=== PATIENT | male | born 1960 | race Caucasian/White ===

== ENCOUNTER 2020-08-26 10:35 | Emergency (ER) | payer OTHER ==
[~2020-08-26] VITALS: Ht 175.3 cm; Wt 93.0 kg
[2020-08-26 10:41] VITALS: BP 121/81
[2020-08-26] MEDS ORDERED: BENZONATATE 100 MG CAPLF PO ONE (11:00)
[2020-08-26] MEDS ORDERED: ONDANSETRON 4 MG ODT PO ONE (11:00)
[2020-08-26 11:50] VITALS: BP 121/81
== END 2020-08-26 11:55 | disposition home or self-care (01) ==
LOC: MED 10:35
DX: U07.1 COVID-19 (principal); B34.9 Viral infection, unspecified; R05 Cough; R11.2 Nausea with vomiting, unspecified; F20.9 Schizophrenia, unspecified
CPT/HCPCS: 71045; 99284; Q0092; Q0162; U0003

== ENCOUNTER 2020-08-30 15:20 | Inpatient (IN) | payer OTHER, SELFPAY ==
[~2020-08-30] VITALS: Ht 175.3 cm; Wt 90.3 kg
[2020-08-30 15:26] VITALS: BP 115/96
[2020-08-30] MEDS ORDERED: cefTRIAXone 1,000 MG in DEXT 5% MINI-BAG PLUS 50 ML IV ONE (15:35)
[2020-08-30] MEDS ORDERED: cefTRIAXone 1,000 MG VIAL ONE (15:44)
--- NOTE | 2020-08-30 15:51 | NUR ---
MEDARDO FROM [facility] W C/O SOB. PER EMS, PT IS COVID (+). PT ARRIVED TO ED ON 15 L NRB MASK @ 95%. AAOX4 WITH EVEN AND STEADY GAIT; LUNGS CLEAR BL; HR EVEN AND REGULAR; PT DENIES ANY FEVER, CP, SOB, OR COUGH AT THIS TIME; PATIENT STATES PAIN OF 0/10 AT THIS TIME; VSS; PATIENT POSITIONED FOR COMFORT; HOB ELEVATED; BEDRAILS UP X2; BED DOWN. ER MD MADE AWARE OF PT STATUS.
[2020-08-30 15:52] LABS: BASOPHILS % (AUTO) 0.3 % (0.0-2.0); HEMATOCRIT 35.3 % (36-52); HEMOGLOBIN 11.5 g/dL (12.0-18.0); LYMPHOCYTES # (AUTO) 0.4 K/uL (2.0-11.5); LYMPHOCYTES % (AUTO) 3.2 % (20.5-51.1); MEAN CORPUSCULAR HEMOGLOBIN 25 pg (27-31); MEAN CORPUSCULAR HGB CONC 33 g/dL (33-37); MEAN CORPUSCULAR VOLUME 75.9 fL (80-94); MONOCYTES # (AUTO) 0.4 K/uL (0.8-1.0); NEUTROPHILS # (AUTO) 10.2 K/uL (1.8-7.7); NEUTROPHILS % (AUTO) 92.5 % (42.2-75.2); PLATELET COUNT (AUTO) 319 K/uL (140-450); RED BLOOD CELL COUNT(AUTO) 4.65 MIL/uL (4.20-6.10); RED CELL DISTRIBUTION WIDTH 15.5 % (11.6-13.7)
[2020-08-30 16:10] LABS: ANION GAP 21.1 (8-16); CARBON DIOXIDE 17.9 mmol/L (21-32); CREATININE 1.4 mg/dL (0.6-1.3); TOTAL BILIRUBIN 0.5 mg/dL (0.0-1.0)
[2020-08-30 16:16] LABS: APPEARANCE,URINE CLEAR (CLEAR); BILIRUBIN,URINE 1+ (NEGATIVE); BLOOD, URINE 1+ (NEGATIVE); COLOR,URINE YELLOW (YELLOW); LEUKOCYTE ESTERASE ,URINE NEGATIVE (NEGATIVE); NITRITE, URINE NEGATIVE (NEGATIVE); UGLUCOSE 3+ (NEGATIVE)
[2020-08-30 16:37] LABS: RBC,URINE 0-5 /HPF (0-5); WBC,URINE 0-5 /HPF (0-5)
--- NOTE | 2020-08-30 17:00 | NUR ---
PT IS RESTING IN THE BED. TACHYCARDIA, TACHYPNEA, AND 99.9 ORAL TEMP. PAUSE OX 94 ON 15L N-REBREATHER. DR. BENNETT MADE AWARE.
[2020-08-30] MEDS ORDERED: ACETAMINOPHEN EXTRA STRENGTH 500 MG TAB PO ONE (17:05)
[2020-08-30] MEDS ORDERED: ACETAMINOPHEN EXTRA STRENGTH 500 MG TAB ONE (17:06)
--- NOTE | 2020-08-30 17:12 | NUR ---
DR. BENNETT IS REEVALUATING PT AT BEDSIDE.
[2020-08-30] MEDS ORDERED: KCL 20 MEQ/WATER INJ PREMIX 200 ML IV PRN (17:40)
[2020-08-30] MEDS ORDERED: MAG SULF 2000 MG/WATER PREMIX 50 ML IV PRN (17:40)
[2020-08-30] MEDS ORDERED: MAGNESIUM OXIDE 400 MG TAB PO PRN (17:40)
[2020-08-30] MEDS ORDERED: POTASSIUM CHLORIDE 10 MEQ TABER PO PRN (17:40)
--- NOTE | 2020-08-30 18:50 | NUR ---
Patient will be admitted to care of hypoxia and covid-19. Admited to tele. Will go to room 116. Belongings list completed. Report to LINDSAY Arcos.
[2020-08-30] MEDS: ALBUTEROL SULFATE/IPRATROPIU 3 ML SOL IH SCH (19:00)
--- NOTE | 2020-08-30 19:05 | NUR ---
REC'D REPORT FROM ER NURSE . ENDORSED PT TO EMERY.
--- NOTE | 2020-08-30 19:18 | NUR ---
PT BROUGHT UP TO UNIT AT 1905 BY ERIC. RECEIVED REPORT AT BEDSIDE FORM ERI RN AND DAMIAN RN FOR CONTINUITY OF CARE. PT IN STABLE CONDITION. ADMIT V/S FOLLOWS: T 99.9 P 93 R 22 B/P 117/68 02 85% ON 15 LITER NON REBREATHER MASK. ALL DROPLET AND FALLS PREVENTION IN PLACE.
[2020-08-30] MEDS ORDERED: ENOXAPARIN 40 MG/0.4 ML SYR SUBQ ONE (19:51)
[2020-08-30 20:00] VITALS: BP 121/81
[2020-08-30] MEDS ORDERED: AZITHROMYCIN 500 MG in DEXTROSE 5% 250 ML IV SCH (20:00)
[2020-08-30] MEDS: ENOXAPARIN 40 MG/0.4 ML SYR SUBQ SCH (20:01)
--- NOTE | 2020-08-30 20:20 | NUR ---
PT IS ALERT AND AWAKE AND APPEARS SOMEWHAT ANXIOUS, BUT CAN FOLLOW COMMANDS AND ANSWER QUESTIONS. MRSA SWAB DONE. PT SKIN INTACT AND HE HAS A RAC 20 GUAGE WHICH IS SALINE LOCKED.PT ORIENTED TO ROOM AND SURROUNDINGS. MRSA SWAB DONE. MD AMOS HERE FOR CONSULT. HE DISCONTINUED IV ABT AND ORDERED DEXAMETHASONE PER COVID PROTOCOL. CONVALESCENT PLASMA ORDERED WELL. V/S FOLLOWS: T 98.3 P 92 R 20 B/P 121/581 02 91% WITH 15 LITERS NON REBREATHER.
--- NOTE | 2020-08-30 20:47 | NUR ---
PT SPO2 ON 100% NRB HR 83 WILL CONTINUE TO MONITOR
--- NOTE | 2020-08-30 21:00 | NUR ---
PT RECEIVED ORDERED LOVENOX SHOT SQ IN THE ABDOMEN. MEDICATION PURPOSES AND SIDE EFFECTS ACKNOWLEDGED BY PT. DROPLET PRECAUTIONS IN PLACE.
--- NOTE | 2020-08-30 22:00 | NUR ---
PT IN BED REPORTED BY WIRELESS STORE MANAGER THAT HE IS GROWING MORE ANXIOUS WITH C/O OF NAUSEA. PT GIVEN EMISIS BAG AND ENCOURAGED TO KEEP THE MASK ON MUCH POSSIBLE DUE TO PT KEEP ON TAKING THE MASK OFF. PT REMINDED THAT HIS 02 SATURATION WILL DROP AND WAS ENCOURAGED TO KEEP MASK ON, PT VERBALIZED UNDERSTANDING.
--- NOTE | 2020-08-30 23:03 | NUR ---
CALLED BY LINDSAY LAND DUE TO DESATURATION. PT IS ANXIOUS AND SHAKING. PROBE CHANGED TO THE EAR. SATURATION NOW 91% PT DOES NOT COMPLAIN OF SHORTNESS OF BREATH. WILL CONT TO MONITOR
[2020-08-30] MEDS ORDERED: ONDANSETRON 4 MG/2 ML VIAL IVP PRN (23:10)
[2020-08-30] MEDS ORDERED: guaiFENesin 20 MG/ML UDC PO PRN (23:10)
--- NOTE | 2020-08-30 23:30 | NUR ---
CALLED RECORDING STUDIO SET UP WORKER MD [facility], RECEIVED PRN ORDERS FOR AGITATION , COUGH AND NAUSEA. PT GIVEN ORDERED IVP ATIVAN FOR SEVERE AGITATION. PT AlSO GIVEN PO/PRN ROBITUSSIN FOR INTERMITTED COUGH, PT HAD NO C/O OF NAUSEA AT THIS TIME.
[2020-08-30] MEDS: LORazepam 2 MG/ML VIAL IM/IVP PRN (23:46)
[2020-08-31] VITALS (32 sets, daily range): BP systolic 93–132; BP diastolic 48–83
--- NOTE | 2020-08-31 00:10 | NUR ---
PT IN BED V/S FOLLOWS: T 102.0 P 111 R 20 B/P 108/81 02 92% ON 15 LITERS VIA N/C. PT WAS TURNED AND CHANGED DUE TO INCONTINENT EPISODE. PT ENCOURAGED TO USE URINAL BY BEDSIDE AND TO CALL FOR HELP IF NEEDED. ALL DROPLET PRECAUTIONS IN PLACE.
[2020-08-31] MEDS: ALBUTEROL SULFATE/IPRATROPIU 3 ML SOL IH SCH ×4 (00:43→19:00)
--- NOTE | 2020-08-31 00:43 | NUR ---
0100 TX NOT GIVEN DUE TO COVID POSITIVE. PT REMAINS ON 100 PERCENT NRB
[2020-08-31] MEDS: ACETAMINOPHEN 325 MG TAB PO PRN ×2 (01:25→09:59)
--- NOTE | 2020-08-31 01:30 | NUR ---
RECEIVED PRN ORDER FOR TYLENOL 650 MG WHICH WAS GIVEN DUE TO FEVER OF 102. PT ALSO GIVEN COOLING MEASURES OF BED BATH AND ICE PACKS. WILL CONTINUE TO MONITOR PT TEMPERATURE. PT ALSO GIVEN ZOFRAN FOR C/O OF NAUSEA. WILL MONITOR FOR EFFECT.
--- NOTE | 2020-08-31 04:35 | NUR ---
PT IN BED, NON REBREATHER MASK ON AT 15 LITERS V/S FOLLOWS:l T 96.8 P 86 R 20 B/P 113/71 02 88%.
--- NOTE | 2020-08-31 06:40 | NUR ---
PT C/O ANXIETY, PT HANDS AND FEET SHAKING, PT WAS GIVEN 1MG ATIVAN IVP FOR AGITATION.
[2020-08-31] MEDS: LORazepam 2 MG/ML VIAL IM/IVP PRN ×4 (06:55→19:44)
[2020-08-31 06:57] LABS: BASOPHILS % (AUTO) 0.2 % (0.0-2.0); EOSINOPHILS % (AUTO) 0.3 % (0.0-4.0); HEMATOCRIT 34.1 % (36-52); HEMOGLOBIN 11.1 g/dL (12.0-18.0); LYMPHOCYTES # (AUTO) 0.2 K/uL (2.0-11.5); LYMPHOCYTES % (AUTO) 1.9 % (20.5-51.1); MEAN CORPUSCULAR HEMOGLOBIN 25 pg (27-31); MEAN CORPUSCULAR HGB CONC 33 g/dL (33-37); MEAN CORPUSCULAR VOLUME 76.3 fL (80-94); MONOCYTES # (AUTO) 0.4 K/uL (0.8-1.0); MONOCYTES % (AUTO) 3.3 % (1.7-9.3); NEUTROPHILS # (AUTO) 11.7 K/uL (1.8-7.7); NEUTROPHILS % (AUTO) 94.3 % (42.2-75.2); PLATELET COUNT (AUTO) 295 K/uL (140-450); RED BLOOD CELL COUNT(AUTO) 4.47 MIL/uL (4.20-6.10); RED CELL DISTRIBUTION WIDTH 15.5 % (11.6-13.7); WHITE BLOOD COUNT (AUTO) 12.5 K/uL (4.8-10.8)
[2020-08-31 07:04] LABS: CHOL/HDL RATIO 2.4 (1-4.5); MAGNESIUM 2.1 mg/dL (1.8-2.4); PHOSPHORUS 2.9 mg/dL (2.5-4.9)
--- NOTE | 2020-08-31 07:15 | NUR ---
RECEIVED REPORT FROM FAMILY ADVOCATE NURSE. PATIENT AWAKE IN BED. FLACC 0, VERBAL BUT CONFUSED, RESPIRATIONS EVEN AND UNLABORED, 15L VIA NRM, O2SAT 90%. WITH IV ON RAC 20G ON SL. SAFETY MEASURES IN PLACE. BED IN LOW POSITION. BED ALARM ON. CALL LIGHT WITHIN REACH. WILL CONTINUE TO MONITOR.
[2020-08-31 07:31] LABS: PROTHROMBIN TIME 10.2 secs (10.8-13.4)
--- NOTE | 2020-08-31 08:29 | NUR ---
PATIENT HAS BEEN SCREENED AND CATEGORIZED HIGH NUTRITION RISK. PATIENT WILL BE SEEN WITHIN 1-2 DAYS OF ADMISSION. 08/31/20 - 09/01/20 CY ERWIN MBA, RD
[2020-08-31] MEDS: ENOXAPARIN 40 MG/0.4 ML SYR SUBQ SCH ×2 (09:00→21:24)
--- NOTE | 2020-08-31 10:00 | NUR ---
PT NOTED WITH UNCONTROLLED SHACKING AND COMPLAINTS OF ANXIETY. ATIVAN GIVEN ORDERED
--- NOTE | 2020-08-31 11:00 | NUR ---
PT WITH EPISODES OF O2SAT DROPPING TO 80% ON 15L NRM. RT NOTIFIED AND WILL SEE PT
--- NOTE | 2020-08-31 12:00 | NUR ---
PLACED PT ON BIPAP 10/05, RATE 16, 100%. PT COULD NOT TOLERATE DUE TO INCREASED ANXIETY. SWITCHED TO HFNC 30LPM, 100% PER MD ORDERS. TOOK ABG AND READBACK RESULTS TO DR. VILLEDA. GAVE ORDERS TO PRONE PT.
[2020-08-31] MEDS ORDERED: BENZ0.5T85 PO (12:21)
[2020-08-31] MEDS ORDERED: LURA120T PO (12:28)
[2020-08-31] MEDS ORDERED: METF1000 PO (12:28)
[2020-08-31] MEDS ORDERED: CANA300T PO (12:28)
[2020-08-31] MEDS ORDERED: ATOR20TA PO (12:28)
[2020-08-31] MEDS ORDERED: LANS15EC28 PO (12:28)
[2020-08-31] MEDS ORDERED: MELO15TA11 PO (12:28)
[2020-08-31] MEDS ORDERED: QUET200T PO (12:28)
[2020-08-31] MEDS ORDERED: DULO60EC PO (12:28)
[2020-08-31] MEDS ORDERED: LISI-420 PO (12:28)
[2020-08-31] MEDS ORDERED: AMLO10TA PO (12:28)
--- NOTE | 2020-08-31 12:30 | NUR ---
PT ON HFNC 30LPM, 100%. O2SAT 89%. RESPIRATION ARE SHALLOW, LABORED AND RAPID
--- NOTE | 2020-08-31 13:45 | NUR ---
INSTRUCTED PT TO PRONE. O2 SAT 90% AFTER PRONING
--- NOTE | 2020-08-31 14:30 | NUR ---
DR VILLEDA CAME AND SEEN PT. ORDERED TO TRANSFER TO ICU.
--- NOTE | 2020-08-31 15:30 | NUR ---
TRANSFEREDPT FROM #115 TO ICU 8. PT REMAINS ON HFNC 30 LPM 100% FIO2. HIGH FLOW PLUGGED INTO RED OUTLET AND AMBUBAG AT BEDSIDE. WILL CONTINUE TO MONITOR.
--- NOTE | 2020-08-31 15:40 | NUR ---
PT ARRIVED TO ICU8, TRANSFERS SELF FROM BED TO BED, PT AWAKE, ALERT, ORIENTED TO SELF ONLY, PLACED ON IRRIGATOR OVERHEAD NSR, RESP EVEN, SLIGHTLY LABORED, RAPID, ON MON REBREATHER, O2SAT 88%, SKIN WARM DRY COLOR WNL, SKIN INTACT, PLAN OF CARE REVIEWED, ALL SAFETY MEASURES IN PLACE, WILL CONTINUE TO MONITOR.
[2020-08-31] MEDS: DEXMEDETOMIDINE HCL 200 MCG in NACL 0.9% 48 ML IV PRN ×2 (15:47→18:50)
--- NOTE | 2020-08-31 15:47 | NUR ---
PT STARTED ON PRECEDEX DRIP PER ORDER FOR ANXIETY.
--- NOTE | 2020-08-31 16:45 | NUR ---
PT'S BROTHER TESSA STERLING CALLED FOR CONDITION UPDATE, INFORMED OF TRANSFER TO ICU FOR CLOSER MONITORING AND START OF PRECEDEX FOR ANXIOLYSIS, WIRELESS PHONE TAKEN INTO ROOM FOR PT TO TALK TO BROTHER TESSA.
[2020-08-31] MEDS ORDERED: LURASIDONE HCL PO SCH (17:00)
--- NOTE | 2020-08-31 17:15 | NUR ---
PT NOT WANTS TO TURN AROUND FROM PRONE TO SITTING POSITION, TURNED WITH NO ASSIST, PLACED IN HIGH MARRUFO POSITION.
--- NOTE | 2020-08-31 18:30 | NUR ---
PT ASSISTED TO SIT UP RIGHT FOR DINNER, PT FEEDS HIMSELF WITH MINIMAL ASSIST, ABBEY 75% OF MEAL, ABBEY 200ML H2O.
--- NOTE | 2020-08-31 20:00 | NUR ---
RECEIVED REPORT FROM DAY SHIFT NURSE. PATIENT IS COVID-19 POSITIVE. DROPLET PRECAUTIONS IN PLACE. ALERT AND ORIENTED X2 TO NAME AND DATE. ABLE TO FOLLOW COMMANDS. LUNG SOUNDS INSPIRATORY STRIDOR, HIGH FLOW NC @ 30L, FIO2: 100%. NON-REBREATHER @15L. S1S2 NOTED, SINUS RHYTHM TO SINUS TACH. PERIPHERAL IV TO LEFT WRIST 20G. RUNNING PRECEDEX DRIP @ 0.4 MCG/KG/HR (7.89 ML/HR). PERIPHERAL IV TO RIGHT FOREARM, 20G. SALINE LOCK. BOTH IV, PATENT, INTACT, NO-REDNESS NOTED. DRY WEIGHT: 78.9KG. BS ACTIVE. ABLE TO USE URINAL. SKIN WARM DRY AND INTACT. PATIENT STATES NO PAIN. SAFETY PRECAUTIONS IN PLACE, BED LOW AND LOCKED, HOB ELEVATED, RAILS UP, ROOM FREE OF CLUTTER. CALL LIGHT WITHIN REACH. INSTRUCTED PATIENT TO USE CALL LIGHT FOR ASSISTANCE. PATIENT VERBALIZED UNDERSTANDING.
--- NOTE | 2020-08-31 20:30 | NUR ---
DR AMOS ON UNIT. UPDATED ON PTS PRESENT CONDITION. NEW ORDER RECEIVED, CARRIED OUT.
[2020-08-31] MEDS ORDERED: QUEtiapine FUMARATE 100 MG TAB PO SCH (21:00)
[2020-08-31] MEDS ORDERED: BENZTROPINE MESYLATE PO SCH (21:00)
[2020-08-31] MEDS ORDERED: metFORMIN 500 MG TAB PO SCH (21:00)
[2020-08-31] MEDS: LEVOFLOXACIN 750 MG/D5W PREMIX 150 ML IV SCH (21:00)
[2020-08-31] MEDS: BENZTROPINE 1 MG TAB PO SCH (21:01)
[2020-08-31] MEDS ORDERED: CRUSHER, PILL MC ONE (21:02)
[2020-08-31] MEDS: DULoxetine 30 MG CAPDR PO SCH (21:03)
--- NOTE | 2020-08-31 22:00 | NUR ---
PATIENT AWAKE, ENCOURAGED TO SELF TURN. DENIES PAIN. CALL LIGHT WITHIN REACH.
[2020-09-01] VITALS (98 sets, daily range): BP systolic 11–129; BP diastolic 37–84
--- NOTE | 2020-09-01 | NUR ---
PATIENT IS RESTING, ENCOURAGED TO SELF TURN. DENIES PAIN. CALL LIGHT WITHIN REACH.
[2020-09-01] MEDS: DEXMEDETOMIDINE HCL 200 MCG in NACL 0.9% 48 ML IV PRN ×2 (00:30→07:52)
[2020-09-01] MEDS: ALBUTEROL SULFATE/IPRATROPIU 3 ML SOL IH SCH ×4 (01:00→19:00)
--- NOTE | 2020-09-01 02:00 | NUR ---
PATIENT'S REMAINS UNCHANGED. WILL CONTINUE TO MONITOR. Addendum: 09/01/20 at 0357 by Monica Wilder RN RN PATIENT'S CONDITION REMAINS UNCHANGED. WILL CONTINUE TO MONITOR.
--- NOTE | 2020-09-01 04:00 | NUR ---
READJUSTED HFNC AND NON-ABEBE MASK ON PATIENT'S FACE. PATIENT'S CONDITION OTHERWISE REMAINS UNCHANGED. DENIES PAIN. WILL CONTINUE TO MONITOR.
[2020-09-01 05:23] LABS: BASOPHILS % (AUTO) 0.1 % (0.0-2.0); HEMATOCRIT 32.8 % (36-52); HEMOGLOBIN 10.6 g/dL (12.0-18.0); LYMPHOCYTES # (AUTO) 0.4 K/uL (2.0-11.5); LYMPHOCYTES % (AUTO) 3.5 % (20.5-51.1); MEAN CORPUSCULAR HEMOGLOBIN 25 pg (27-31); MEAN CORPUSCULAR HGB CONC 32 g/dL (33-37); MEAN CORPUSCULAR VOLUME 76.7 fL (80-94); MONOCYTES # (AUTO) 0.4 K/uL (0.8-1.0); MONOCYTES % (AUTO) 3.7 % (1.7-9.3); NEUTROPHILS % (AUTO) 92.7 % (42.2-75.2); PLATELET COUNT (AUTO) 295 K/uL (140-450); RED BLOOD CELL COUNT(AUTO) 4.28 MIL/uL (4.20-6.10); RED CELL DISTRIBUTION WIDTH 15.8 % (11.6-13.7); WHITE BLOOD COUNT (AUTO) 10.8 K/uL (4.8-10.8)
[2020-09-01 05:47] LABS: ANION GAP 16.8 (8-16); CARBON DIOXIDE 23.5 mmol/L (21-32); CREATININE 1.1 mg/dL (0.6-1.3); POTASSIUM 4.3 mmol/L (3.5-5.1)
[2020-09-01 05:49] LABS: MAGNESIUM 2.4 mg/dL (1.8-2.4); PHOSPHORUS 2.4 mg/dL (2.5-4.9)
[2020-09-01 05:53] LABS: PROTHROMBIN TIME 10.1 secs (10.8-13.4)
--- NOTE | 2020-09-01 06:00 | NUR ---
ASSISTED PATIENT TO USE THE URINAL. CHG BATH, NEW GOWN AND LINEN. ADLs TOLERATED WELL. NO DESATURATION NOTED. PT ON HFNC AND NON REBREATHER. SAFETY PRECAUTIONS IN PLACE, BED LOW AND LOCKED. SIDE RAILS UP. EDUCATED PT ON SELF TURNING TO LATERAL SIDES/PRONE AND USING CALL LIGHT WHEN NEED ASSISTANCE. CALL LIGHT WITHIN REACH.
--- NOTE | 2020-09-01 07:00 | NUR ---
RECEIVED HANDOFF REPORT FROM ADDING MACHINE OPERATOR RN. PT IS RASS -1. PT IS ON HIGH FLOW NC 30L AND NRB 15 ML. PT IS SINUS BRADYCARDIA ON THE MONITOR. PT HAS ACCESS AT R FOREARM 20 G SALINE LOCKED AND L WRIST 20 G. NS IS RUNNING AT 5 ML/HR WITH PRECEDEX AT 0.4 MCG/KG/HR. PT IS ON CARDIAC DIET AND IS OKAY TO TAKE MEDS BY MOUTH. FOR VOIDING PT USES URINAL. HOB IS 30 DEG, WITH BED IN LOW LOCKED POSITION. WILL CONTINUE TO MONITOR.
--- NOTE | 2020-09-01 07:54 | NUR ---
PT IS A&OX4. REPOSITIONED PT, CONFIRMED THAT SKIN IS INTACT WITH NO WOUNDS OR REDNESS. TEMPERATURE 97.9 TEMPORALLY. PT DENIES PAIN AT THIS TIME.
--- NOTE | 2020-09-01 08:04 | NUR ---
CALLED [facility] REGARDING PT'S HOME MEDS GURJIT AND OLIVIA, NO ANSWER, NO VOICE MAIL, WILL ATTEMPT TO REACH HER AGAIN LATER TO BRING HOME MEDS BECAUSE THEY ARE NOT AVAILABLE HERE PER PHARMACY.
--- NOTE | 2020-09-01 08:27 | NUR ---
PT SITTING UP IN BED TO EAT BREAKFAST.
--- NOTE | 2020-09-01 08:37 | NUR ---
BROTHER TESSA STERLING CALLED FOR UPDATE ON PT. INFORMATION PROVIDED ABOUT PT'S STATUS AND QUESTIONS ANSWERED. BROTHER PROVIDED NUMBER FOR SPECIMEN TECHNICIAN OF [facility] [phone] IN CASE WE ARE UNABLE TO REACH WOOD AT NUMBER PROVIDED.
--- NOTE | 2020-09-01 08:42 | NUR ---
DISCHARGE PLANNING: THIS IS A 59 Y/O MALE PATIENT FROM [facility], WHO WAS BIBA DUE TO SOB. PAST MEDICAL HISTORY INCLUDE SCHIZOPHRENIA. INITIAL DIAGNOSIS OF COVID WITH HYPOXIA. CURRENT LABS INCLUDE WBC 10.8, H/H 10.6/32.8, NA/K 138/4.3, BUN/CREA 24/1.1, LIPASE 62, D DIMER 1180, COVID RAPID TEST POSITIVE. INF A AND B NEGATIVE. ON HIGH FLOW FIO2 100% O2 SAT 92. ON LEVAQUIN, DECADRON ID AND PULMO CONSULTS IN PLACE. CONVALESCENT PLASMA ORDER IN PLACE. DC PLAN PENDING ON PATIENT'S RESPONSE TO TREATMENT. Addendum: 09/04/20 at 1150 by Adalgisa Bettencourt CM SEEN BY SANJANA - TO CONTINUE O2 TITRATION, CONTINUE SEDATION WITH PRECEDEX TO IMPROVE OXYGENATION. STARTED ON REMDESIVIR YESTERDAY. ON LEVAQUIN, DECADRON. FOR RPT CXR 09/05/2020. Addendum: 09/05/20 at 1042 by Adalgisa Bettencourt CM STILL ON HIGH FLOW 02, 35L, O2 SAT 97%. ON PRECEDEX DRIP. ON REMDESIVIR. WAS ON CARDIZEM DRIP YESTERDAY 12/02 CARDIZEM DRIP HR 160-120'S, DC'D AT 1645, LATEST HR ON THE 50'S. RPT CXR TODAY PENDING. Addendum: 09/08/20 at 1243 by Adalgisa Bettencourt CM INTUBATED LAST NIGHT TO VENT FIO2 65, TV 500, PEEP 5, O2 SAT 92%. SEDATED WITH PROPOFOL. ON DECADRON. Addendum: 09/09/20 at 1057 by Adalgisa Bettencourt CM STILL ORALLY INTUBATED TO VENT, FIO2 100%, PEEP 12, O2 SAT 100%. ON LEVOPHED AND NEOSYNEPHRINE DRIPS. SEDATED WITH PROPOFOL AND VERSED DRIPS. ON DECADRON. Addendum: 09/17/20 at 1631 by Grace Contreras RN DC PLANNING: S/P RIGHT FEMORAL CATHETER PLACEMENT FOR HEMODIALYSIS. DIALYSIS SCHEDULE TODAY. FIO2 80% SATING 95% ID ,NEPHRO AND PULMO AR FOLLOWING CONTINUE WITH CURRENT TREATMENT. CM TO FOLLOW.
--- NOTE | 2020-09-01 08:54 | NUR ---
CALLED JUSTINE CONTE OF [facility] , REQUESTED HOME MEDS, HE AGREES TO BRING LATUDA AND INVOKANA LATER TODAY.
[2020-09-01] MEDS: lisinopriL 20 MG TAB PO SCH (09:00)
[2020-09-01] MEDS ORDERED: CANAGLIFLOZIN PO SCH (09:00)
[2020-09-01] MEDS ORDERED: NON-FORMULARY ITEM (Meloxicam* (Mobic*) 1 TAB) PO SCH (09:00)
[2020-09-01] MEDS: amLODIPine 5 MG TAB PO SCH (09:00)
[2020-09-01] MEDS: BENZTROPINE 1 MG TAB PO SCH ×2 (09:10→21:06)
[2020-09-01] MEDS: DULoxetine 30 MG CAPDR PO SCH ×2 (09:11→21:06)
[2020-09-01] MEDS: ATORVASTATIN 20 MG TAB PO SCH (09:11)
[2020-09-01] MEDS: ENOXAPARIN 40 MG/0.4 ML SYR SUBQ SCH ×2 (09:14→21:10)
--- NOTE | 2020-09-01 09:30 | NUR ---
MEDICATIONS ADMINISTERED PER ORDER, PT TOLERATED WELL. BP MEDS HELD DUE TO LOW HR AND BP. PT CONSUMED 50% OF BREAKFAST.
[2020-09-01] MEDS: LORazepam 2 MG/ML VIAL IM/IVP PRN ×2 (10:12→14:41)
--- NOTE | 2020-09-01 10:12 | NUR ---
ATIVAN ADMINISTERED PRN DUE TO AGITATION, TACHYPNEA. WILL CONTINUE TO MONITOR.
--- NOTE | 2020-09-01 10:35 | NUR ---
SOCIAL WORK NOTE: Patient's Orientation Unable To Assess Information Provided By SARAHI GUILLEN - REFINERY OPERATOR OF HOUSE Comments [facility] CONTACTED EMERGENCY CONTACT [facility] WHO REFERRED SW TO SARAHI GUILLEN. PER WOOD, PATIENT RENTS A ROOM FROM SARAHI GUILLEN. ANDRES COMPLETED ASSESSMENT WITH SARAHI. Horologist, Realtionship and Phone Number TESSA DAVILA [phone] Healthcare Power of Cylinder Dyer No Does Patient Have a POLST No Identifying Problems No Social Work Triggers Is A Social Work Consult Needed No Mandate Report Filed No Explanation Of Identifying Problems PATIENT IS A 59-YEAR-OLD MALE ADMITTED FOR COVID W/ HYPOXIA. PATIENT HAS NO PERTINENT PMHX. PER SARAHI, PATIENT DOES NOT HAVE HISTORY OF MENTAL HEALTH OR SUBSTANCE ABUSE AND IS SELF-RESPONSIBLE WITH MEICAL DECISION MAKING. Admitted From Home Pre-Admission Level Of Functioning Status Independent/Ambulatory Level Of Functioning Comment PER SARAHI, PATIENT IS INDEPENDENT WITH ALL ADLS. Prior Resources/Services Used In Last 12 Months No Prior Resources Used Prior DME No Prior DME Used Dialysis Comments N/A Living Situation Rents A Room Other Living Situation/Comment PATIENT LIVES AT AN INDEPENDENT LIVING FACILITY. Patient Had Caregiver No Home Support No Caregiver Issues Financial Issues No Known Financial Issue Referral To The Financial Counselor Needed No Factors/Needs No D/C Needs Identified Explanation And Or Other Factors Affecting/Possible DC Needs PER SARAHI, HE WILL COORDINATE TRANSPORTATION FOR PATIENT ONCE HE IS DISCHARGED. Pt/Rep Participated In Discharge Plan Yes Patient/Family Agress With Discharge Plan Yes Discharge Plan Comments TENTATIVE DISCHARGE PLAN IS FOR PATIENT TO RETURN HOME. DC Plan Status Initiated
--- NOTE | 2020-09-01 11:15 | NUR ---
UPON REASSESSMENT 1 HR POST PRN ATIVAN, PT'S AGITATION DECREASED, APPEARS TO BE RESTING WITH EYES CLOSED. WILL CONTINUE TO MONITOR.
--- NOTE | 2020-09-01 12:30 | NUR ---
PT REFUSED LUNCH AT THIS TIME. LEFT FOOD AT BEDSIDE AND WILL CONTINUE TO MONITOR.
--- NOTE | 2020-09-01 13:10 | NUR ---
PT PRONED PER DR. VILLEDA'S ORDERS. PT NOW SATTING 100%. WILL CONTINUE TO MONITOR.
--- NOTE | 2020-09-01 13:10 | NUR ---
DR. VILLEDA AT BEDSIDE TO SEE PT. ORDERS RECEIVED AND CARRIED OUT.
[2020-09-01] MEDS: DEXT 5% / NACL 0.45% 1,000 ML IV SCH (13:20)
[2020-09-01] MEDS ORDERED: DEXTROSE 50% 50 ML SYR IVP PRN (13:20)
[2020-09-01] MEDS: DEXMEDETOMIDINE HCL 400 MCG in NACL 0.9% 96 ML IV PRN ×2 (13:22→20:49)
[2020-09-01] MEDS ORDERED: CLON1TAB PO (14:13)
[2020-09-01] MEDS ORDERED: ALBU0.0912 INH (14:13)
--- NOTE | 2020-09-01 14:20 | NUR ---
HOME MEDICATIONS LATUDA, INVOKANA, KLONIPIN, SEROQUEL BROUGHT IN FROM [facility], MED REQ UPDATED, MEDICATIONS TURNED INTO PHARMACY.
--- NOTE | 2020-09-01 14:49 | NUR ---
09/01/2020 RD INITIAL ASSESSMENT COMPLETED PLEASE REFER TO NUTRITION ASSESSMENT UNDER CARE ACTIVITY FOR ESTIMATED NUTRITIONAL NEEDS. CONTINUE CURRENT DIET TOLERATED ADD ENSURE CLEAR BID FOR INCREASED KCALS/PRO RD TO FOLLOW-UP IN 3-5 DAYS PATIENT IS MODERATE RISK. JUNIOR PHELAN, RD
--- NOTE | 2020-09-01 14:51 | NUR ---
ATIVAN PRN ADMINISTERED FOR PT AGITATION, TACHYPNEA. WILL CONTINUE TO MONITOR.
--- NOTE | 2020-09-01 15:00 | NUR ---
RT HILTON AT BEDSIDE. PER RT, PT NOW OFF OF NRB MASK. HIGH FLOW NC AT 30 L WAS ALSO DECREASED TO 90% FIO2. PT SATTING 98%. WILL CONTINUE TO MONITOR.
--- NOTE | 2020-09-01 15:23 | NUR ---
DR. LONG AT BEDSIDE TO SEE PT.
[2020-09-01] MEDS ORDERED: DOCUSATE SODIUM 250 MG GELCAP PO PRN (15:25)
--- NOTE | 2020-09-01 15:39 | NUR ---
UPON REASSESSMENT 1 HR POST PRN ATIVAN, PT'S AGITATION DECREASED, APPEARS TO BE RESTING WITH EYES CLOSED. O2 98% AND RR 41. WILL CONTINUE TO MONITOR.
--- NOTE | 2020-09-01 16:25 | NUR ---
DR. VILLEDA PAGED REGARDING PTS BRADYCARDIA (HR 49).
--- NOTE | 2020-09-01 16:45 | NUR ---
BS 236, 4 UNITS OF INSULIN ADMINISTERED FOR COVERAGE.
--- NOTE | 2020-09-01 16:59 | NUR ---
TRANSFUSION OF 1ST UNIT OF CONVALESCENT PLASMA BEGUN. T 97.9, P 53, R 40, BP 114/76, DENIES PAIN. WILL CONTINUE TO MONITOR.
--- NOTE | 2020-09-01 17:04 | NUR ---
DR. VILLEDA MADE AWARE OF PTS BRADYCARDIA. NO ORDERS AT THIS TIME. WILL CONTINUE TO MONITOR.
[2020-09-01] MEDS: BLOOD GLUCOSE MONITORING 1 DEV DEV FS SCH ×2 (17:08→21:31)
[2020-09-01] MEDS: INSULIN LISPRO SLIDING SCALE 100 UNITS/ML VIAL SUBQ PRN ×2 (17:19→21:35)
--- NOTE | 2020-09-01 18:05 | NUR ---
1ST UNIT OF CONVALESCENT PLASMA COMPLETE. T 97.1, P 51, R 43, BP 109/66, DENIES PAIN. PER MELANIE WHARTON TO GIVE 2ND UNIT 12 HOURS AFTER.
--- NOTE | 2020-09-01 18:45 | NUR ---
PT REPOSITIONED TO SUPINE FOR APPROXIMATELY 30 MINUTES TO ATTEMPT EATING. PT UNABLE TO EAT DINNER AT THIS TIME, BUT CONSUMED ENSURE. REPOSITIONED AND CLEANED. PRN COLACE ADMINISTERED PER PT REQUEST.
--- NOTE | 2020-09-01 19:15 | NUR ---
HANDOFF GIVEN TO CLOTH OPENER HAND RN FOR CONTINUITY OF CARE.
--- NOTE | 2020-09-01 19:16 | NUR ---
RECIEVED ENDORSEMENT FROM DAY SHIFT RN, PT AWAKE AND RESTING, PT ON PRONE POSITION, A&0X4, LUNG DIMINISHED BILATERAL, PT ON NC 30L HIGH FLOW AND NRB 15L, F102 100%, SB ON MONITOR, PERIPHERAL PULSES PALPABLE, PT ON CARDIAC DIET, RFA 20 GAUGE AND LW 20 GAUGE, RUNNING PRECEDEX 0.6 MCG/KG/HR AND D5 HALF NS 70MLS/HR, PT SKIN INTACT, WARM AND DRY TO TOUCH, PT SHOWING NO SIGNS OF ACUTE DISTRESS, SAFETY MEASURES IN PLACE, WILL CONTINUE WITH CURRENT POC AND MONITORING
[2020-09-01] MEDS: LEVOFLOXACIN 750 MG/D5W PREMIX 150 ML IV SCH (20:08)
[2020-09-01] MEDS: LATUDA PO SCH (21:00)
[2020-09-01] MEDS: [UNRECOGNIZED DRUG - OTHER] PO SCH (21:00)
[2020-09-01] MEDS: metFORMIN 500 MG TAB PO SCH (21:05)
--- NOTE | 2020-09-01 21:30 | NUR ---
ADMINISTERED 2100H MEDICATIONS PER ORDERED, BLOOD GLUCOSE 237, ADMINISTERED 4 UNITS OF HUMALOG PER PROTOCOL, PT AFEBRILE, REPOSITIONED PT TO PRONE POSITION D/T DESATING TO 88%, SAFETY MEASURES IN PLACE, CALL LIGHT WITHIN REACH, WILL CONTINUE TO MONITOR
--- NOTE | 2020-09-01 23:49 | NUR ---
REPOSITIONED PT TO LEFT LATERAL, PT USED THE URINAL, 1000ML OUTPUT, PT SHOWING NO SIGNS OF ACUTE DISTRESS, SAFETY MEASURES IN PLACE, CALL LIGHT WITHIN REACH, WILL CONTINUE TO MONITOR
[2020-09-02] VITALS (99 sets, daily range): BP systolic 86–140; BP diastolic 38–99
[2020-09-02] MEDS: ALBUTEROL SULFATE/IPRATROPIU 3 ML SOL IH SCH ×3 (00:10→19:00)
--- NOTE | 2020-09-02 01:45 | NUR ---
REPOSITIONED PT, PT SHOWING NO SIGNS OF ACUTE DISTRESS, PT AEFBRILE, SAFETY MEASURES IN PLACE, CALL LIGHT WITHIN REACH, WILL CONTINUE TO MONITOR
--- NOTE | 2020-09-02 04:15 | NUR ---
PT RESTING, PT SHOWING NO SIGNS OG ACUTE DISTRESS, CALL LIGHT WITHIN REACH, SAFETY MEASURES IN PLACE, WILL CONTINUE TO MONITOR
[2020-09-02] MEDS: DEXT 5% / NACL 0.45% 1,000 ML IV SCH ×2 (05:10→17:44)
[2020-09-02 05:17] LABS: BASOPHILS % (AUTO) 0.1 % (0.0-2.0); EOSINOPHILS # (AUTO) 0.1 K/uL (0-0.4); EOSINOPHILS % (AUTO) 1.3 % (0.0-4.0); HEMATOCRIT 30.3 % (36-52); HEMOGLOBIN 9.9 g/dL (12.0-18.0); LYMPHOCYTES # (AUTO) 0.3 K/uL (2.0-11.5); LYMPHOCYTES % (AUTO) 3.7 % (20.5-51.1); MEAN CORPUSCULAR HEMOGLOBIN 25 pg (27-31); MEAN CORPUSCULAR HGB CONC 33 g/dL (33-37); MEAN CORPUSCULAR VOLUME 77.2 fL (80-94); MONOCYTES # (AUTO) 0.4 K/uL (0.8-1.0); NEUTROPHILS # (AUTO) 7.6 K/uL (1.8-7.7); NEUTROPHILS % (AUTO) 89.9 % (42.2-75.2); PLATELET COUNT (AUTO) 284 K/uL (140-450); RED BLOOD CELL COUNT(AUTO) 3.93 MIL/uL (4.20-6.10); RED CELL DISTRIBUTION WIDTH 15.7 % (11.6-13.7); WHITE BLOOD COUNT (AUTO) 8.5 K/uL (4.8-10.8)
[2020-09-02 05:44] LABS: MAGNESIUM 2.2 mg/dL (1.8-2.4); PHOSPHORUS 2.5 mg/dL (2.5-4.9)
--- NOTE | 2020-09-02 05:45 | NUR ---
PT ASKED FOR WATER, PT REFUSED AM CARE, REPOSITIONED PT, PT USED THE URINAL, PT SHOWING NO SIGNS OF ACUTE DISTRESS, SAFETY MEASURES IN PLACE, WILL CONTINUE TO MONITOR
[2020-09-02 05:48] LABS: ALBUMIN 2.1 g/dL (3.4-5.0); ANION GAP 16.7 (8-16); CARBON DIOXIDE 20.6 mmol/L (21-32); POTASSIUM 4.3 mmol/L (3.5-5.1); TOTAL BILIRUBIN 0.3 mg/dL (0.0-1.0)
[2020-09-02 06:19] LABS: PROTHROMBIN TIME 9.8 secs (10.8-13.4)
[2020-09-02] MEDS: DEXMEDETOMIDINE HCL 400 MCG in NACL 0.9% 96 ML IV PRN ×2 (06:21→15:23)
--- NOTE | 2020-09-02 07:16 | NUR ---
NO HHN TX GIVEN DUE TO COVID-19 PROTOCOL
--- NOTE | 2020-09-02 07:29 | NUR ---
ENDORSED TO DAY SHIFT RN FOR CONTINUITY OF CARE
--- NOTE | 2020-09-02 07:30 | NUR ---
RECEIVED BEDSIDE REPORT FROM FACER OPERATOR NURSES, MARCE ZHONG. PT AWAKE, ALERT, ABLE TO MAKE NEEDS KNOWN, RESTING IN BED. SPO2 95% ON HIGH FLOW 30 L NC, FIO2 100%. BREATHING EVEN AND UNLABORED, LUNG SOUNDS DIMINISHED ON AUSCULTATION. DENIED PAIN, SOB AND ANY DISTRESS. RASS -1, DRY WEIGHT 78.9 KG. NO SIGNS OF ACUTE DISTRESS NOTED. TRAFFIC SIGNAL REPAIRER IN PLACE. 20G IV ON LFA, 20G IV ON L WRIST. D5 NS 0.45 RUNNING AT 70ML/HR AND PRECEDEX RUNNING AT 0.6 MCG/KG/HR. SKIN DRY AND WARM. ABDOMEN SOFT AND ROUND, PATIENT IS ABLE TO USE URINAL BY BEDSIDE. SAFETY MEASURES IN PLACE. FALL RISK PROTOCOL AND ENHANCED DROPLET PROTOCOL IN PLACE. BED IN LOW POSITION AND CALL LIGHT WITHIN REACH.
[2020-09-02] MEDS: INSULIN LISPRO SLIDING SCALE 100 UNITS/ML VIAL SUBQ PRN ×2 (08:16→17:44)
--- NOTE | 2020-09-02 08:16 | NUR ---
BLOOD GLUCOSE CHECKED, 165, ADMINISTERED 2 UNITS HUMALOG
[2020-09-02] MEDS: BLOOD GLUCOSE MONITORING 1 DEV DEV FS SCH ×4 (08:17→21:00)
--- NOTE | 2020-09-02 08:31 | NUR ---
ASSISTED PATIENT TO PRONE POSITION. SPO2 100%. NO SIGNS OF ACUTE DISTRESS NOTED. BED IN LOW POSITION AND CALL LIGHT WITHIN REACH. SAFETY PRECAUTIONS IN PLACE. ASSOCIATE SALES MANAGER IN PLACE.
--- NOTE | 2020-09-02 09:14 | NUR ---
WENT TO BLOOD BANK TO [facility] CHANGE ATTENDANT 2ND UNIT OF CONVALESCENT PLASMA, AND SPOKE WITH MANJU. PER MANJU, THE 2ND UNIT OF CONVALESCENT PLASMA IS NOT YET READY AND WILL NOTIFY ICU ONCE CONVALESCENT PLASMA IS READY.
--- NOTE | 2020-09-02 09:40 | NUR ---
IV ON R HAND 20G,INFILTRATED. WILL INSERT IV SHORTLY. ALL IV MED AND IVF IS GOING ON L WRIST 20G AT THIS TIME. SAFETY MEASURES IN PLACE.
[2020-09-02] MEDS: amLODIPine 5 MG TAB PO SCH (10:14)
[2020-09-02] MEDS: metFORMIN 500 MG TAB PO SCH ×2 (10:14→21:00)
[2020-09-02] MEDS: DULoxetine 30 MG CAPDR PO SCH ×2 (10:15→21:00)
[2020-09-02] MEDS: INVOKANA 300 MG PO SCH (10:16)
[2020-09-02] MEDS: BENZTROPINE 1 MG TAB PO SCH ×2 (10:16→21:00)
[2020-09-02] MEDS: ATORVASTATIN 20 MG TAB PO SCH (10:17)
[2020-09-02] MEDS: lisinopriL 20 MG TAB PO SCH (10:17)
[2020-09-02] MEDS: ENOXAPARIN 40 MG/0.4 ML SYR SUBQ SCH ×2 (10:20→21:00)
--- NOTE | 2020-09-02 10:20 | NUR ---
ADMINISTERED MORNING MEDS PER MD ORDER. MED EDUCATION PROVIDED. REINFORCEMENT NEEDED. PATIENT SWALLOWED MEDS WELL WITH WATER. ASSISTED PT TO PRONE POSITION, PILLOWS USED TO OFFLOADED PRESSURE AND PROVIDED COMFORT, EDUCATED PATIENT ON BENEFITS ON PRONING AND KEEP OXYGEN ON AT ALL TIME. PT TOLERATED WELL, BREATHING EVEN AND UNLABORED, SPO2 AT 92%. NO SIGNS OF ACUTE DISTRESS NOTED. SAFETY MEASURES IN PLACE. BED IN LOW POSITION AND CALL LIGHT WITHIN REACH. SYSTEMS DEVELOPMENT CONSULTANT IN PLACE.
--- NOTE | 2020-09-02 10:59 | NUR ---
RECEIVED A CALL FROM PATIENT'S BROTHER TESSA, UPDATED TESSA WITH PATIENT'S CURRENT CONDITION, TESSA WAS AWARE.
--- NOTE | 2020-09-02 12:09 | NUR ---
BLOOD GLUCOSE CHECKED, 113, NO COVERAGE NECESSARY. PT IN PRONE POSITION. BREATHING EVEN AND UNLABORED. NO SIGNS OF ACUTE DISTRESS NOTED. BED IN LOW POSITION, HOB 30 DEGREES. SAFETY PRECAUTIONS IN PLACE. AMMONIA WORKER IN PLACE.
--- NOTE | 2020-09-02 13:09 | NUR ---
ATTENDED TO PATIENT, PATIENT STATED THAT HE NEEDS TO GO FOR BATHROOM FOR BM, ASSISTED PATIENT TO USE THE BEDPAN. NO BM, BUT PASSING GAS. PROVIDED HYGIENE CARE AND ASSIST PATIENT TO LYING ON PRONE POSITION, USED PILLOWS TO OFFLOADED PRESSURE AND PROVIDED COMFORT. APPLIED RECYCLING OR RUBBISH COLLECTOR AND SPO2 MONITOR, BP 108/63 PULSE 80, RR 50 SPO2 AT 98% ON HIGH FLOW NC AND NON-REBREATHER. SAFETY MEASURES IN PLACE. BED IN LOW POSITION, CALL LIGHT WITHIN REACH, INSTRUCTED PATIENT TO USE THE CALL LIGHT FOR ANY ASSISTANCE, PATIENT SAID OK.
--- NOTE | 2020-09-02 13:18 | NUR ---
PATIENT IS TALKING TO BROTHER TESSA ON THE PHONE AT THIS TIME.
--- NOTE | 2020-09-02 13:25 | NUR ---
PATIENT ACCIDENTIALLY PULLED OUT IV ON L WRIST WHILE TURNING, CANNULA INTACT AND COMPLETE. NO BLEEDING ON SITE. WILL INSERT A IV SHORTLY. ASSISTED PATIENT TO POSITION COMFORTABLY. SAFETY MEASURES IN PLACE.
--- NOTE | 2020-09-02 13:33 | NUR ---
DR LONG IS TALKING TO PATIENT'S BROTHER TESSA, AND EXPLAINED ABOUT PICC LINE. OBTAINED TELEPHONE CONSENT WITH PATIENT SAFETY COORDINATOR FOR PICC LINE, TESSA WAS AWARE AND AGREED TO PICC LINE INSERT.
--- NOTE | 2020-09-02 14:45 | NUR ---
DR VILLEDA IS ROUNDING ON PATIENT.
--- NOTE | 2020-09-02 16:28 | NUR ---
ASSISTED PATIENT TO TURN SUPINE AND PICC LINE RN IS ABOUT TO INSERT PICC LINE.
--- NOTE | 2020-09-02 17:43 | NUR ---
CHECKED BLOOD GLUCOSE, 174, 2 UNITS HUMALOG ADMINISTERED. PT IN BED WITH PICC LINE NURSE. NO SIGNS OF ACUTE DISTRESS NOTED. BREATHING EVEN AND UNLABORED.
[2020-09-02] MEDS: LORazepam 2 MG/ML VIAL IM/IVP PRN (17:50)
--- NOTE | 2020-09-02 17:51 | NUR ---
PATIENT COMPLAINED OF FEELING ANXIOUS, REPOSITIONED PATIENT AND PROVIDE PILLOWS TO COMFORT. PROVIDED WATER, PATIENT STATED HE NEEDS SOMETHING FOR HIS ANXIETY, MEDICATED WITH PRN ATIVAN. MED EDUCATION PROVIDED, PATIENT STATED OK. BIOCHEMICAL DEVELOPMENT ENGINEER IN PLACE. SAFETY MEASURES IN PLACE.
--- NOTE | 2020-09-02 17:53 | NUR ---
X-RAY AT BEDSIDE FOR PICC LINE CONFIRMATION.
--- NOTE | 2020-09-02 18:05 | NUR ---
PER PICC LINE LINDSAY VILLA, SHE REVIEWED THE X-RAY IMAGING, THE LINE IS GOOD TO USE MIDLINE. NO NEED TO REINSERT.
--- NOTE | 2020-09-02 18:45 | NUR ---
ASSISTED PT WITH DINNER AND THEN BACK TO PRONE POSTION. PT TOLERATED WELL. NO SIGNS OF ACUTE DISTRESS NOTED. BED IN LOW POSTION AND CALL LIGHT WITHIN REACH. SAFETY PRECAUTIONS ACTIVATED. SORT OPERATIONS SUPERVISOR IN PLACE.
--- NOTE | 2020-09-02 19:30 | NUR ---
RECEIVED BEDSIDE REPORT FROM AY SHIFT NURSE SALUD. PATIENT IS SLEEP BUT EASILY ABUSABLE. CURRENT O2 SAT: 98%. HIGH FLOW 30L NC, FIO2 100%. LUNGS ARE DIMINISHED. PAIN 0/10. RASS -1. PRECEDEX 0.6 MCG/KG/HR. lEVOFLOXIN 70ML/HR. NO BOWEL MOVEMENT, PATIENT ALSO USES URINAL WITH ASSISTANCE. COVID 19 POSITVE WITH DROPLET PRECAUTIONS. SINUS RUKHSANA. WILL CONTINUE TO MONITOR. NURJB
--- NOTE | 2020-09-02 19:35 | NUR ---
FOLLOWED UP TO BLOOD BANK THE AVAILABILITY OF PATIENT'S 2ND UNIT OF CONVALESCENT PLASMA PER ROSANA PRESSLEY; PLASMA IS NOT BEEN DELIVERED OR DIDN'T ARRIVE YET; INSTRUCTED HER TO CALL ICU ONCE IT'S AVAILABLE.
[2020-09-02] MEDS: LEVOFLOXACIN 750 MG/D5W PREMIX 150 ML IV SCH (21:00)
[2020-09-02] MEDS: [UNRECOGNIZED DRUG - OTHER] PO SCH (21:00)
[2020-09-02] MEDS: LATUDA PO SCH (21:00)
--- NOTE | 2020-09-02 21:00 | NUR ---
DURING ASSESSMENT PATIENTS O2 SAT DECREASED TO 85%. REPOSITIONED FROM LEFT LATERAL TO PRONE AND THE O2 SATURATION INCREASE TO 94%. Patient continues to have asymptomatic bradycardia ( 44-50 bpm). WILL CONTINUE TO MONITOR
[2020-09-03] VITALS (95 sets, daily range): BP systolic 78–162; BP diastolic 42–119
[2020-09-03] MEDS: ALBUTEROL SULFATE/IPRATROPIU 3 ML SOL IH SCH ×4 (00:46→19:00)
[2020-09-03] MEDS: DEXMEDETOMIDINE HCL 400 MCG in NACL 0.9% 96 ML IV PRN ×3 (00:54→20:58)
--- NOTE | 2020-09-03 02:48 | NUR ---
PATIENT VOIDED IN BED, UNKNOWN OUTPUT. PATIENT WAS CLEANED AND ASSESSED. HEART RATE INCREASED TO 80-90 BPM DURING ISMAEL CARE. O2 SAT DECREASED TO 79%. ONCE REPOSITIONED TO PRONE THE PATIENTS O2 SAT INCREASED TO 100%. WILL CONTINUE TO MONITOR PATIENT.
--- NOTE | 2020-09-03 03:58 | NUR ---
RT ASSESS THE PATIENT AND REMOVED THE NRB. HIGH FLOW NC 30L STILL RUNNING. O2 SAT: 98%. HR: 62. PATIENT IN PRONE POSITION. WILL CONTINUE TO MONITOR THE PATIENT.
--- NOTE | 2020-09-03 04:30 | NUR ---
AM CLEANING FOR PATIENT WAS COMPLETE. PATIENT WAS REPOSITION FROM LATERAL TO PRONE. PICC LINE FLUSHED. PATIENTS HR INCREASED TO 65 BPM COMPARED TO BASELINE OF 45. WILL CONTINUE TO MONITOR
[2020-09-03] MEDS: BLOOD GLUCOSE MONITORING 1 DEV DEV FS SCH ×4 (06:40→21:03)
--- NOTE | 2020-09-03 07:10 | NUR ---
RECEIVED ENDORSEMENT FROM ADULT EDUCATION MANAGER RN. PT IN BED, PT ON PRONE POSITION, AOX4, NO C/O PAIN, RESPIRATIONS ARE RAPID AND SHALLOW. LUNG SOUNDS DIMINISHED. PT ON NC 30L HIGH FLOW AND NRB 15L, F102 100%, SB ON MONITOR, WITH ROLANDA PICC DOUBLE LUMEN, RUNNING PRECEDEX 0.6 MCG/KG/HR AND D5 HALF NS 70MLS/HR. PT SKIN INTACT. SAFETY MEASURES IN PLACE, WILL CONTINUE MONITORING
[2020-09-03 07:24] LABS: BASOPHILS % (AUTO) 0.3 % (0.0-2.0); EOSINOPHILS # (AUTO) 0.1 K/uL (0-0.4); EOSINOPHILS % (AUTO) 0.7 % (0.0-4.0); HEMATOCRIT 37.1 % (36-52); HEMOGLOBIN 12.1 g/dL (12.0-18.0); LYMPHOCYTES # (AUTO) 0.7 K/uL (2.0-11.5); MEAN CORPUSCULAR HEMOGLOBIN 25 pg (27-31); MEAN CORPUSCULAR HGB CONC 33 g/dL (33-37); MEAN CORPUSCULAR VOLUME 76.6 fL (80-94); MONOCYTES # (AUTO) 0.4 K/uL (0.8-1.0); MONOCYTES % (AUTO) 4.3 % (1.7-9.3); NEUTROPHILS # (AUTO) 8.8 K/uL (1.8-7.7); NEUTROPHILS % (AUTO) 87.7 % (42.2-75.2); PLATELET COUNT (AUTO) 241 K/uL (140-450); RED BLOOD CELL COUNT(AUTO) 4.84 MIL/uL (4.20-6.10); RED CELL DISTRIBUTION WIDTH 15.8 % (11.6-13.7)
[2020-09-03 07:34] LABS: MAGNESIUM 2.3 mg/dL (1.8-2.4); PHOSPHORUS 2.7 mg/dL (2.5-4.9)
[2020-09-03] MEDS: DEXT 5% / NACL 0.45% 1,000 ML IV SCH ×3 (07:44→23:54)
[2020-09-03 08:23] LABS: PROTHROMBIN TIME 9.6 secs (10.8-13.4)
--- NOTE | 2020-09-03 09:15 | NUR ---
PERICARE AND SKIN CARE DONE. DUE MORNING MEDS GIVEN. TOLERATED PO MEDS WELL. ATE 30% OF BREAKFAST PLUS ENSURE
[2020-09-03] MEDS: DULoxetine 30 MG CAPDR PO SCH ×2 (09:22→20:25)
[2020-09-03] MEDS: amLODIPine 5 MG TAB PO SCH (09:22)
[2020-09-03] MEDS: BENZTROPINE 1 MG TAB PO SCH ×2 (09:22→20:25)
[2020-09-03] MEDS: metFORMIN 500 MG TAB PO SCH ×2 (09:22→20:25)
[2020-09-03] MEDS: ATORVASTATIN 20 MG TAB PO SCH (09:22)
[2020-09-03] MEDS: ENOXAPARIN 40 MG/0.4 ML SYR SUBQ SCH (09:23)
[2020-09-03] MEDS: lisinopriL 20 MG TAB PO SCH (09:23)
[2020-09-03] MEDS: INVOKANA 300 MG PO SCH (09:23)
--- NOTE | 2020-09-03 10:05 | NUR ---
STARTED CONVALESCENT PLASMA TRANSFUSION
--- NOTE | 2020-09-03 11:25 | NUR ---
CONVALESCENT PLASMA TRANSFUSION DONE. NO ADVERSE REACTIONS NOTED, VSS
--- NOTE | 2020-09-03 12:30 | NUR ---
RASS +1, PT RESTLESS. O2SAT DROPS TO 88%. PRECEDEX INCREASED TO 0.8MCG
--- NOTE | 2020-09-03 13:30 | NUR ---
RASS +1, PT RESTLESS. O2SAT DROPS TO 83%. PRECEDEX INCREASED TO 1.0MCG
--- NOTE | 2020-09-03 14:30 | NUR ---
RASS +1, PT RESTLESS. O2SAT DROPS TO 85%. PRECEDEX INCREASED TO 1.2MCG
[2020-09-03] MEDS: LORazepam 2 MG/ML VIAL IM/IVP PRN (15:30)
[2020-09-03] MEDS ORDERED: LOVENOX 1MG/KG Q12H SUBQ SCH (16:00)
--- NOTE | 2020-09-03 16:20 | NUR ---
PT RESTLESS. ATIVAN GIVEN ORDERED. O2SAT DROPS TO 88%.
[2020-09-03] MEDS ORDERED: remdesivir COMMUNICATION ORDER 1 EA MISC MC PRN (18:25)
--- NOTE | 2020-09-03 18:45 | NUR ---
PT IN STABLE CONDITION. WILL ENDORSE TO NEXT SHIFT FOR CONTINUITY OF CARE
[2020-09-03] MEDS ORDERED: CLINICAL MONITORING MC PRN (18:50)
[2020-09-03] MEDS ORDERED: REMDESIVIR (EUA) 200 MG in NACL 0.9% 100 ML IV ONE (18:50)
--- NOTE | 2020-09-03 19:00 | NUR ---
RECEIVED PATIENT FROM AM SHIFT NURSE FOR CONTINUITY OF CARE. PATIENT IS RESTING IN PRONE POSITION. AAOX3, ABLE TO FOLLOW SIMPLE DIRECTIONS. RESPIRATIONS LABORED, SHALLOW. CONTINUES ON O2 NC 30L HIGH FLOW FIO2 100% NRB 15L. O2SAT 100%. NO C/O PAIN. SKIN WARM, DRY AND INTACT. PICC DOUBLE LUMEN TO ROLANDA INFUSING PRECEDEX 1.2 MCG/KG/HR AND D5 0.45% NS AT 70 ML/HR. SALINE LOCK TO RIGHT FOREARM 20G NOTED. PATIENT IS INCONTINENT WITH EPISODES OF INCONTINENCE. SAFETY PRECAUTIONS IN PLACE. ISOLATION PRECAUTIONS OBSERVED BY ALL STAFF.
--- NOTE | 2020-09-03 19:24 | NUR ---
RECEIVED REPORT FROM AM SHIFT. PT SEEN AND ASSESSED. PT ON HFNC 35L AND FiO2 95% WITH SPO2 OF 100%. TITRATED FiO2 TO 90% WITH SPO2 OF 98%. AUSCULTATION REVEALS BILATERAL RALES BREATH SOUNDS. PT IS IN NO APPARENT RESPIRATORY DISTRESS AT THIS TIME. SCHEDULE HHN TX NOT GIVEN DUE TO COVID PROTOCOL. WILL CONTINUE TO MONITOR PT.
--- NOTE | 2020-09-03 19:30 | NUR ---
RESPIRATORY THERAPIST TITRATED O2 TO HIGH FLOW NC 35L AND FiO2 90% WITH SPO2 OF 96%. PATIENT IS COMFORTABLY IN LEFT LATERAL POSITION. NO C/O PAIN. VISUAL MONITORING BY ALL STAFF. SAFETY PRECAUTIONS IN PLACE. ISOLATION PRECAUTIONS OBSERVED BY ALL STAFF.
[2020-09-03] MEDS: LEVOFLOXACIN 750 MG/D5W PREMIX 150 ML IV SCH (20:21)
[2020-09-03] MEDS: [UNRECOGNIZED DRUG - OTHER] PO SCH (20:27)
[2020-09-03] MEDS: LATUDA PO SCH (20:27)
[2020-09-03] MEDS: ENOXAPARIN 80 MG/0.8 ML SYR SUBQ SCH (20:31)
--- NOTE | 2020-09-03 21:00 | NUR ---
DUE MEDS GIVEN. INCONTINENT CARE RENDERED. NO C/O PAIN. SAFETY PRECAUTIONS IN PLACE. ISOLATION PRECAUTIONS OBSERVED BY ALL STAFF.
[2020-09-03] MEDS: INSULIN LISPRO SLIDING SCALE 100 UNITS/ML VIAL SUBQ PRN (21:02)
--- NOTE | 2020-09-03 23:38 | NUR ---
PATIENT IS ASLEEP. PATIENT CONTINUES WITH BRADYCARDIA RANGING FROM 48 TO 50 BPM. PATIENT IS EASILY AROUSABLE AND VERBALIZES NO DISTRESS. SAFETY PRECAUTIONS IN PLACE. VISUAL MONITORING BY ALL STAFF. ISOLATION PRECAUTIONS OBSERVED BY ALL STAFF.
[2020-09-04] VITALS (97 sets, daily range): BP systolic 74–148; BP diastolic 31–88
[2020-09-04] MEDS: ALBUTEROL SULFATE/IPRATROPIU 3 ML SOL IH SCH ×4 (01:00→19:58)
--- NOTE | 2020-09-04 01:32 | NUR ---
PATIENT REPOSITIONED TO PRONE POSITION. O2 SAT 97%. NO C/O PAIN. NO S/S ACUTE DISTRESS. SAFETY PRECAUTIONS IN PLACE. ISOLATION PRECAUTIONS OBSERVED BY ALL STAFF. VISUAL MONITORING BY ALL STAFF.
[2020-09-04] MEDS: DEXMEDETOMIDINE HCL 400 MCG in NACL 0.9% 96 ML IV PRN ×5 (01:39→15:53)
--- NOTE | 2020-09-04 03:28 | NUR ---
PATIENT IS ASLEEP. NO S/S ACUTE DISTRESS.
--- NOTE | 2020-09-04 04:09 | NUR ---
PRECEDEX ADMINISTERED. PATIENT RESTING IN LATERAL POSITION. IN REVERSE [place]. WILL CONTINUE TO MONITOR
--- NOTE | 2020-09-04 05:25 | NUR ---
PATIENT CONTINUES IN PRONE POSITION. NO C/O PAIN. VISUAL MONITORING BY ALL STAFF. SAFETY PRECAUTIONS IN PLACE. ISOLATION PRECAUTIONS OBSERVED BY ALL STAFF.
[2020-09-04 05:43] LABS: BASOPHILS % (AUTO) 0.2 % (0.0-2.0); EOSINOPHILS % (AUTO) 0.4 % (0.0-4.0); HEMATOCRIT 34.3 % (36-52); HEMOGLOBIN 11.2 g/dL (12.0-18.0); LYMPHOCYTES # (AUTO) 0.5 K/uL (2.0-11.5); MEAN CORPUSCULAR HEMOGLOBIN 25 pg (27-31); MEAN CORPUSCULAR HGB CONC 33 g/dL (33-37); MEAN CORPUSCULAR VOLUME 76.4 fL (80-94); MONOCYTES # (AUTO) 0.5 K/uL (0.8-1.0); MONOCYTES % (AUTO) 6.2 % (1.7-9.3); NEUTROPHILS # (AUTO) 6.4 K/uL (1.8-7.7); NEUTROPHILS % (AUTO) 86.2 % (42.2-75.2); PLATELET COUNT (AUTO) 221 K/uL (140-450); RED BLOOD CELL COUNT(AUTO) 4.49 MIL/uL (4.20-6.10); RED CELL DISTRIBUTION WIDTH 15.4 % (11.6-13.7); WHITE BLOOD COUNT (AUTO) 7.4 K/uL (4.8-10.8)
[2020-09-04 06:16] LABS: PROTHROMBIN TIME 10.5 secs (10.8-13.4)
[2020-09-04 06:27] LABS: MAGNESIUM 2.4 mg/dL (1.8-2.4); PHOSPHORUS 3.5 mg/dL (2.5-4.9)
[2020-09-04] MEDS: BLOOD GLUCOSE MONITORING 1 DEV DEV FS SCH ×4 (06:30→21:22)
--- NOTE | 2020-09-04 07:00 | NUR ---
RECEIVED HANDOFF FROM FINE ARTS PACKER RN. PT IS RASS -1. PT IS ON HIGH FLOW NC AT 35 L/MIN WITH AN FIO2 OF 90%. PT IS CURRENTLY SB ON THE MONITOR. FOR ACCESS PT HAS ROLANDA PICC WITH D5 1/2 NS RUNNING AT 70 ML/HR, AND PRECEDEX RUNNING AT 1.2 MCG/KG/HR. PT WEIGHT IS 78.9 KG. PT IS ON CARDIAC DIET, WITH ENSURE FOR SUPPLEMENT. TO VOID, PT USES URINAL BUT NEEDS ASSISTANCE. PT IS CURRENTLY PRONED AND HAS BEEN SINCE 0300 THIS MORNING PER FINE ARTS PACKER RN. WILL CONTINUE TO MONITOR.
[2020-09-04 08:01] LABS: ALBUMIN 2.2 g/dL (3.4-5.0); ANION GAP 14.7 (8-16); CARBON DIOXIDE 23.5 mmol/L (21-32); POTASSIUM 4.2 mmol/L (3.5-5.1); TOTAL BILIRUBIN 0.5 mg/dL (0.0-1.0)
--- NOTE | 2020-09-04 08:17 | NUR ---
BREATHING TX NOT GIVEN BECAUSE PT IS COVID POSITIVE. NO DISTRESS NOTED AT THIS TIME, WILL CONTINUE TO MONITOR.
[2020-09-04] MEDS: metFORMIN 500 MG TAB PO SCH ×2 (08:20→21:23)
[2020-09-04] MEDS: ATORVASTATIN 20 MG TAB PO SCH (08:20)
[2020-09-04] MEDS: DULoxetine 30 MG CAPDR PO SCH ×2 (08:21→21:23)
[2020-09-04] MEDS: amLODIPine 5 MG TAB PO SCH (08:21)
[2020-09-04] MEDS: BENZTROPINE 1 MG TAB PO SCH ×2 (08:21→21:22)
[2020-09-04] MEDS: INVOKANA 300 MG PO SCH (08:22)
[2020-09-04] MEDS: lisinopriL 20 MG TAB PO SCH (08:22)
--- NOTE | 2020-09-04 08:45 | NUR ---
MEDICATIONS ADMINISTERED PER ORDER, EXCEPT BP MEDS HELD DUE TO BRADYCARDIA AND LOW BP. PT VOIDED X1, SHEETS CHANGED, PT CLEANED AND REPOSITIONED TO SUPINE. NRB MASK REPLACED DUE TO PT DESATTING TO 85% WHEN SUPINE. PT NOW SATTING 94%. PT OFFERED BREAKFAST AND ENSURE BUT REFUSED. TEMPERATURE 96.0 TEMPORALLY. WILL CONTINUE TO MONITOR.
--- NOTE | 2020-09-04 09:30 | NUR ---
PT C/O SOB AND ANXIETY. PRN ATIVAN ADMINISTERED. STAYED WITH PATIENT AT BEDSIDE, ENCOURAGED PT TO TAKE DEEP BREATHS. O2 SAT VARIES FROM 88-98%. PT PRONED AGAIN TO PROMOTE BETTER OXYGENATION. NOW SATTING 100%. WILL CONTINUE TO MONITOR.
[2020-09-04] MEDS: LORazepam 2 MG/ML VIAL IM/IVP PRN ×4 (09:31→23:01)
--- NOTE | 2020-09-04 09:35 | NUR ---
DR. VILLEDA TO SEE PT.
--- NOTE | 2020-09-04 09:45 | NUR ---
09/04/20 RD FOLLOW UP COMPLETED. PLEASE REFER TO NUTRITION ASSESSMENT UNDER CARE ACTIVITY FOR ESTIMATED NUTRITIONAL NEEDS. CONTINUE CURRENT DIET TOLERATED CONTINUE ENSURE CLEAR BID FOR INCREASED KCALS/PRO RD TO FOLLOW-UP IN 3-5 DAYS PATIENT IS MODERATE RISK. JUNIOR PHELAN, RD
[2020-09-04] MEDS: ENOXAPARIN 80 MG/0.8 ML SYR SUBQ SCH ×2 (09:52→21:00)
--- NOTE | 2020-09-04 11:53 | NUR ---
BS 149, NO INSULIN COVERAGE NEEDED. TEMPERATURE 97.5 TEMPORALLY. PT STILL PRONE TO PROMOTE OXYGENATION. VSS. WILL CONTINUE TO MONITOR.
--- NOTE | 2020-09-04 12:05 | NUR ---
PATIENT BECOME VERY ANXIOUS WITH INCREASED RR (56) AND DECREASE O2 SATURATION (82%) ATIVAN 1MG. PATIENT VOIDED (800ML) PATIENTS RASS -1, HE IS RESPONSIVE TO COMMANDS AND SLOWLY REPOSITIONS HIMSELF. PATIENT REPOSITIONED TO PRONE. ALL 4 BED RAILS UP AND BED IS LOCKED. WILL CONTINUE TO MONITOR. Addendum: 09/05/20 at 0625 by Starla Romo RN RN WRONG TIME; TAWANNA TIME; 00:15
--- NOTE | 2020-09-04 13:09 | NUR ---
PT HR 180-190s. PAGED DR. VILLEDA TO UPDATE HIM ON PT STATUS. AWAITING CALL BACK. RT AT BEDSIDE FOR STAT EKG.
--- NOTE | 2020-09-04 13:18 | NUR ---
DR SHAIK JARQUIN, HR 160-180, AFIB RVR PER 12EKG, BP 119/63, PT AWAKE ALERT, EATING JELLO. RR SHALLOW IN 34, HI FLOW O2 + NRB, O2 SAT 97%
[2020-09-04] MEDS ORDERED: DILTIAZEM 25 MG/5 ML VIAL IVP ONE ×2 (13:21→14:00)
--- NOTE | 2020-09-04 13:24 | NUR ---
ATIVAN PRN ADMINISTERED FOR PT ANXIETY, [place]. WILL CONTINUE TO MONITOR.
--- NOTE | 2020-09-04 13:24 | NUR ---
DR SOSA CALLED BACK, CARDIZEM 10MG IVP X1NOW, TROPONIN, CARDIOLOGY CONSULT WITH Marianne MCDANIEL
--- NOTE | 2020-09-04 13:40 | NUR ---
HR REMAINS AT 167-180 AFIB, BP 107/76 AFTER CARDIZEM IV PUSH, James MCDANIEL CALLED WITH PT UPDATE, ORDERS RECEIVED FOR CARDIZEM DRIP.
[2020-09-04] MEDS ORDERED: DILTIAZEM 125 MG in DEXTROSE 5% 100 ML IV SCH (13:45)
[2020-09-04] MEDS ORDERED: DILTIAZEM 25 MG/5 ML VIAL IVP SCH ×2 (13:50→15:30)
--- NOTE | 2020-09-04 13:57 | NUR ---
BREATHING TX NOT GIVEN BECAUSE PT IS COVID POSITIVE.
[2020-09-04] MEDS ORDERED: ADENOSINE 6 MG/2 ML VIAL IVP SCH (14:00)
--- NOTE | 2020-09-04 14:05 | NUR ---
20 MG OF CARDIZEM ADMINISTERED PER DR. ORTIZ'S ORDER, CARDIZEM DRIP STARTED.
--- NOTE | 2020-09-04 14:21 | NUR ---
ADENOSINE [address] VILLEDA'S ORDER. PT HR NOW 110-120.
[2020-09-04] MEDS: DEXT 5% / NACL 0.45% 1,000 ML IV SCH (14:58)
--- NOTE | 2020-09-04 16:30 | NUR ---
BS 224, 4 UNITS OF INSULIN ADMINISTERED PER SLIDING SCALE. WILL CONTINUE TO MONITOR.
[2020-09-04] MEDS: INSULIN LISPRO SLIDING SCALE 100 UNITS/ML VIAL SUBQ PRN (16:33)
--- NOTE | 2020-09-04 16:45 | NUR ---
CARDIZEM DRIP HELD PER PARAMETERS, HR 58. WILL CONTINUE TO MONITOR.
--- NOTE | 2020-09-04 16:55 | NUR ---
ATIVAN PRN ADMINISTERED DUE TO PT ANXIOUSNESS, AGITATION. WILL CONTINUE TO MONITOR. Addendum: 09/04/20 at 1904 by Tara vAery RN RN INCORRECT TIME - SUPPOSED TO BE [id number]
--- NOTE | 2020-09-04 17:34 | NUR ---
PT STILL PRONE AT THIS TIME. O2 SAT 99% ON HIGH FLOW NC 35 L 100% FIO2, NRB 15 L. REMINDED PT IMPORTANCE OF REMAINING IN PRONE POSITION.
[2020-09-04] MEDS: REMDESIVIR (EUA) 100 MG in NACL 0.9% 100 ML IV SCH (18:23)
--- NOTE | 2020-09-04 18:55 | NUR ---
PRN ATIVAN ADMINISTERED DUE TO PT ANXIETY, AGITATION. WILL CONTINUE TO MONITOR.
--- NOTE | 2020-09-04 19:15 | NUR ---
HANDOFF GIVEN TO PAPER CORE MACHINE OPERATOR RN FOR CONTINUITY OF CARE.
--- NOTE | 2020-09-04 19:30 | NUR ---
phone call from pts brother Elvin Tavarez; updated on pts present condition.questions answered
--- NOTE | 2020-09-04 21:00 | NUR ---
RECEIVED ENDORSEMENT FROM day shift RN. PT IN BED, PT ON PRONE POSITION, RASS -1 NO C/O PAIN, RESPIRATIONS ARE RAPID AND SHALLOW. LUNG SOUNDS DIMINISHED. PT ON NC 30L HIGH FLOW AND NRB 15L, F102 100%, WITH ROLANDA PICC DOUBLE RUNNING PRECEDEX 1.2 MCG/KG/HR AND D5 HALF NS 70MLS/HR. LEVOFLAXCIN 100ML/HR @ 2100 PT SKIN INTACT. WILL CONTINUE TO MONITOR.
[2020-09-04] MEDS: LEVOFLOXACIN 750 MG/D5W PREMIX 150 ML IV SCH (21:22)
[2020-09-04] MEDS: LATUDA PO SCH (21:23)
[2020-09-04] MEDS: [UNRECOGNIZED DRUG - OTHER] PO SCH (21:23)
--- NOTE | 2020-09-04 23:00 | NUR ---
ORDERED MEDICATIONS GIVEN. BLOOD GLUCOSE 133 NO COVERAGE NEEDED. PATIENT LAYING SUPINE WITH SIDE RAILS UP X4 AND BED LOCKED. WILL CONTINUE TO MONITOR.
[2020-09-05] VITALS (99 sets, daily range): BP systolic 84–142; BP diastolic 34–82
[2020-09-05] MEDS: ALBUTEROL SULFATE/IPRATROPIU 3 ML SOL IH SCH ×4 (00:47→19:00)
[2020-09-05] MEDS: DEXMEDETOMIDINE HCL 400 MCG in NACL 0.9% 96 ML IV PRN ×6 (01:20→22:17)
[2020-09-05] MEDS: LORazepam 2 MG/ML VIAL IM/IVP PRN ×4 (03:16→19:06)
--- NOTE | 2020-09-05 03:16 | NUR ---
pt very agitated/restless; sitting at the side of the bed; removed hfnc and non rebreather.saturating 70's; put back to bed on prone position; ativan given as ordered.will continue to closely monitor pt
--- NOTE | 2020-09-05 04:35 | NUR ---
BLOOD DRAW FOR THE LAB FROM PATIENTS PICC LINE. 10CC WASTE WITH 20 CC WITHDRAW. PICC LINE WAS FLUSHED AFTER BLOOD DRAW. PATIENT SLEEPING COMFORTABLY, WILL CONTINUE TO MONITOR,
--- NOTE | 2020-09-05 06:10 | NUR ---
XRAY AT BEDSIDE FOR CHEST XRAY. PT UNABLE TO FOLLOW COMMANDS, PT RESTLESS AND AGITATED. UNABLE TO KEEP PATIENT STILL. ICING MIXER WILL COME BACK WHEN PATIENT RECEIVES NEXT DOSE OF ATIVAN.
[2020-09-05 06:20] LABS: CREATININE 0.9 mg/dL (0.6-1.3); POTASSIUM 4.2 mmol/L (3.5-5.1); TOTAL BILIRUBIN 0.6 mg/dL (0.0-1.0)
[2020-09-05 06:57] LABS: ANION GAP 18.1 (8-16); CARBON DIOXIDE 19.1 mmol/L (21-32)
--- NOTE | 2020-09-05 07:12 | NUR ---
RECEIVED BEDSIDE REPORT FROM ENROLLMENT MANAGEMENT VICE PRESIDENT NURSE KELLIE RN, PT SLEEPING, NO DISTRESS NOTED, SEDATED RASS -1, DRY WEIGHT 78.9KG, PT ON 30LPM O2, VIA HIGH FLOW OXYGEN AND 30LPM O2 VIA NONREBREATHER, SATURATING @ 100%, ON PRONE POSITION. R UPPER ARM PICC PATENT INTACT RUNNING PRECEDEX @ 1.2MCG/KG/HR AND D5 1/2 NS @ 70ML/HR, INFUSING WELL. VS WNL, INITIAL ASSESSMENT DONE, ALL SAFETY PRECAUTION MET, CALL LIGHT WITHIN REACH, WILL CONTINUE TO MONITOR.
[2020-09-05] MEDS: BLOOD GLUCOSE MONITORING 1 DEV DEV FS SCH ×4 (07:17→20:46)
[2020-09-05] MEDS: INVOKANA 300 MG PO SCH (08:35)
[2020-09-05] MEDS: amLODIPine 5 MG TAB PO SCH (08:37)
[2020-09-05] MEDS: BENZTROPINE 1 MG TAB PO SCH ×2 (08:37→20:32)
[2020-09-05] MEDS: metFORMIN 500 MG TAB PO SCH ×2 (08:37→20:32)
[2020-09-05] MEDS: DULoxetine 30 MG CAPDR PO SCH ×2 (08:37→20:32)
[2020-09-05] MEDS: ATORVASTATIN 20 MG TAB PO SCH (08:38)
[2020-09-05] MEDS: ENOXAPARIN 80 MG/0.8 ML SYR SUBQ SCH ×2 (08:38→20:33)
--- NOTE | 2020-09-05 08:38 | NUR ---
DUE MEDICATIONS GIVEN PER DR ORDER, LISINOPRIL HELD D/T DECREASED BP, PT TOLERATED WELL, NO DISTRESS NOTED, WILL CONTINUE TO MONITOR.
--- NOTE | 2020-09-05 08:45 | NUR ---
XRAY AT BEDSIDE.
[2020-09-05] MEDS: lisinopriL 20 MG TAB PO SCH (08:46)
--- NOTE | 2020-09-05 09:02 | NUR ---
PAGED REGARDING ABG RESULTS WAITING FOR CALL BACK.
--- NOTE | 2020-09-05 09:17 | NUR ---
ABG RESULTS GIVEN TO , NO NEW ORDERS AT THIS TIME.
[2020-09-05 10:00] LABS: BASOPHILS # (AUTO) 0.1 K/uL (0.00-0.22); BASOPHILS % (AUTO) 0.8 % (0.0-2.0); EOSINOPHILS % (AUTO) 0.3 % (0.0-4.0); HEMATOCRIT 31.4 % (36-52); HEMOGLOBIN 10.2 g/dL (12.0-18.0); LYMPHOCYTES # (AUTO) 0.5 K/uL (2.0-11.5); LYMPHOCYTES % (AUTO) 4.6 % (20.5-51.1); MEAN CORPUSCULAR HEMOGLOBIN 25 pg (27-31); MEAN CORPUSCULAR HGB CONC 32 g/dL (33-37); MONOCYTES # (AUTO) 0.4 K/uL (0.8-1.0); MONOCYTES % (AUTO) 4.1 % (1.7-9.3); NEUTROPHILS # (AUTO) 9.1 K/uL (1.8-7.7); NEUTROPHILS % (AUTO) 90.2 % (42.2-75.2); PLATELET COUNT (AUTO) 204 K/uL (140-450); RED BLOOD CELL COUNT(AUTO) 4.08 MIL/uL (4.20-6.10); RED CELL DISTRIBUTION WIDTH 15.7 % (11.6-13.7)
[2020-09-05] MEDS: DEXT 5% / NACL 0.45% 1,000 ML IV SCH (11:42)
--- NOTE | 2020-09-05 11:50 | NUR ---
PT AGITATED, STARTED TO TAKE OFF OXYGENS, MEDICATION ATIVAN GIVEN PER DR ORDER GIVEN, WILL CONTINUE TO MONITOR.
[2020-09-05] MEDS: INSULIN LISPRO SLIDING SCALE 100 UNITS/ML VIAL SUBQ PRN ×2 (11:55→17:09)
[2020-09-05] MEDS: MORPHINE SULFATE 2 MG/ML SYR IVP PRN ×2 (13:05→16:28)
--- NOTE | 2020-09-05 16:29 | NUR ---
PT RESTLESS, KEEPS SITTING UP AT SIDE OF BED, REPEATEDLY REMOVES NRB MASK AND HI FLOW O2, PRN ATIVAN GIVEN, PRECEDEX DRIP AT MAX RATE, RR AT 40-50, O2SAT DOWN TO 74% WHEN SITTING UP OR SUPINE, RECOVERS TO 90% WHEN PRONE BUT PT UNABLE TO STAY IN PRONE POSITION FOR ANY EXTENDED AMOUT OF TIME DUE TO DISCOMFORT, MORPHINE ALREADY GIVEN X2 DOSES NOT DUE AT THIS TIME, DR LONG AT BEDSIDE, MADE AWARE OF SITUATION, DR VILLEDA PAGED PER DR LONG.
--- NOTE | 2020-09-05 17:21 | NUR ---
DR VILLEDA CALLED BACK, PT CONDITION REPORTED, PHONE NUMBER FOR BROTHER TESSA GIVEN TO DR VILLEDA, HE WILL CALL TO DISCUSS PLAN OF CARE.
--- NOTE | 2020-09-05 18:02 | NUR ---
DR VILLEDA ON THE FLOOR SPEAKING WITH BROTHER TESSA REGARDING PT CONDITION TO DISCUSS POSSIBLE INTUBATION, TESSA ALSO ATTEMPTED TO SPEAK WITH KANDI ONT HE PHONE BUT PT IS TOO SHORT OF BREATH.
--- NOTE | 2020-09-05 18:38 | NUR ---
PER DR VILLEDA ZYPREXA 5MG IM DAILY, ONE DOSE NOW, HALDOL 5MG IM Q6H PRN AGITATION TO KEEP PT CALM TO STAY PRONE TO IMPROVE OXYGENATION. WILL CONTINUE TO ENCOURAGE PRONE POSITION.
[2020-09-05] MEDS: REMDESIVIR (EUA) 100 MG in NACL 0.9% 100 ML IV SCH (18:44)
[2020-09-05] MEDS ORDERED: OLANZapine 10 MG VIAL IM SCH (18:45)
--- NOTE | 2020-09-05 19:20 | NUR ---
ENDORSED PT TO POLISH COMPOUNDER NURSE DACIA MONTOYA, FOR CONTINUOUS OF CARE.
--- NOTE | 2020-09-05 20:00 | NUR ---
RECEIVED REPORT FROM DAY SHIFT RN. DROPLET PRECAUTION MAINTAINED D/T DX: COVID POSITIVE. RASS +2: AGITATED. S1S2 HEART SOUNDS NOTED. +2 PULSES UPPER AND LOWER EXTREMITIES. PERIPHERAL MID LINE ACCESS TO THE RIGHT UPPER ARM. RUNNING PRESEDEX 1.2 MCG/KG/HR. ASYMPTOMATIC, PATENT, AND INTACT. LUNG SOUNDS DIMINISHED UPON AUSCULTATION. PATIENT IS ON NC HIGH FLOW @ 35, FIO2 100%. NON REBREATHER 100%. BOWEL SOUNDS ACTIVE, CARDIAC DIET. INCONTINENT. SKIN WARM DRY, INTACT. SAFETY MEASURES IN PLACE, BED LOW AND LOCKED POSITION. CALL LIGHT WITHIN REACH. WILL CONTINUE TO MONITOR. Addendum: 09/06/20 at 0044 by Monica Wilder RN RN TIME AND DATE OF ASSESSMENT 09/05/2020 @ 1999. NOT 09/06/2020 0037. RUNNING PRECEDEX 1.2 MCG/KG/HR (23.67 ML/HR) TO MAINTAIN RASS -1. PATIENT IS ALREADY MAX OUT OF MD RICKY IS AWARE. PATIENT IS ON NC HIGH FLOW @ 35LPM, FIO2 100%. NON REBREATHER 15LPM 100%.
[2020-09-05] MEDS: LEVOFLOXACIN 750 MG/D5W PREMIX 150 ML IV SCH (20:18)
[2020-09-05] MEDS: LACTULOSE 20 GM/30 ML UDC PO SCH (20:31)
[2020-09-05] MEDS: LATUDA PO SCH (20:33)
[2020-09-05] MEDS: [UNRECOGNIZED DRUG - OTHER] PO SCH (20:33)
--- NOTE | 2020-09-05 21:30 | NUR ---
PATIENT IS IN PRONE POSITION, RESTING IN BED. RASS -1.
[2020-09-06] VITALS (97 sets, daily range): BP systolic 11–169; BP diastolic 20–86
--- NOTE | 2020-09-06 | NUR ---
PATIENT SATURATION IS 100%. PATIENT IS ON NC HIGH FLOW @ 35LPM, FIO2 100%. NON REBREATHER 15LPM 100%. PATIENT IS IN PRONE POSITION. SAFETY PRECAUTIONS IN PLACE, CALL LIGHT WITHIN REACH, WILL CONTINUE TO MONITOR.
[2020-09-06] MEDS: ALBUTEROL SULFATE/IPRATROPIU 3 ML SOL IH SCH ×3 (01:00→14:00)
[2020-09-06] MEDS: DEXT 5% / NACL 0.45% 1,000 ML IV SCH ×2 (01:28→18:19)
[2020-09-06] MEDS: LORazepam 2 MG/ML VIAL IM/IVP PRN ×6 (02:02→20:39)
--- NOTE | 2020-09-06 02:05 | NUR ---
PATIENT HAD EPISODE OF INCONTINENCE, CLEANED PT, NEW GOWN, LINENS AND BLANKETS. PT WAS A LITTLE AGITATED, PRECEDEX MAX OUT, PRN ATIVAN GIVEN ORDERED. PT POSITIONED IN SUPINE. SAFETY MEASURES IN PLACE, WILL CONTINUE TO MONITOR.
[2020-09-06] MEDS: DEXMEDETOMIDINE HCL 400 MCG in NACL 0.9% 96 ML IV PRN ×5 (02:29→21:57)
--- NOTE | 2020-09-06 04:26 | NUR ---
INCREASED CARDIZEM DRIP TO 15MG/HR. PT LATEST VITALS FOLLOWS: B/P: 123/65, HR: 127, SPO2: 98, RR: 40. ENCOURAGED PT TO DEEP BREATHE/RELAX. WILL CONT. TO MONITOR. Addendum: 09/06/20 at 0559 by Monica Wilder RN RN WRONG PATIENT.
--- NOTE | 2020-09-06 05:30 | NUR ---
PT HAD AN EPISODE OF INCONTINENCE. MORNING ROUTINE PROVIDED. DENIES PAIN. WILL CONT. TO MONITOR.
[2020-09-06 05:55] LABS: ALBUMIN 2.1 g/dL (3.4-5.0); ANION GAP 12.8 (8-16); CARBON DIOXIDE 21.4 mmol/L (21-32); CREATININE 0.9 mg/dL (0.6-1.3); POTASSIUM 4.2 mmol/L (3.5-5.1); TOTAL BILIRUBIN 0.6 mg/dL (0.0-1.0)
--- NOTE | 2020-09-06 07:00 | NUR ---
RECEIVED HAND OFF REPORT FROM WINDOWS SERVER SPECIALIST RN. PT IS RASS -1. PT IS CURRENTLY SR ON THE MONITOR. PT IS ON HIGH FLOW NASAL CANNULA AT 35 L FIO2 100%, WELL NRB AT 15 L. FOR ACCESS, PT HAS ROLANDA MIDLINE. PRECEDEX IS RUNNING AT 1.2 MCG/KG/HR. D5 1/2 NS IS RUNNING AT 70 ML/HR. PT IS ON CARDIAC DIET, BUT HAS POOR APPETITE. PT IS SUPINE, WITH HOB AT 30 DEG. WILL CONTINUE TO MONITOR.
[2020-09-06] MEDS: BLOOD GLUCOSE MONITORING 1 DEV DEV FS SCH ×4 (07:30→21:00)
--- NOTE | 2020-09-06 08:00 | NUR ---
PT VOIDED 500 ML IN THE URINAL. URINE WAS LIGHT MATTHEW, CLEAR.
[2020-09-06] MEDS: amLODIPine 5 MG TAB PO SCH (08:49)
[2020-09-06] MEDS: lisinopriL 20 MG TAB PO SCH (08:50)
[2020-09-06] MEDS: ENOXAPARIN 80 MG/0.8 ML SYR SUBQ SCH ×2 (08:55→21:00)
[2020-09-06] MEDS: ATORVASTATIN 20 MG TAB PO SCH (08:56)
[2020-09-06] MEDS: LACTULOSE 20 GM/30 ML UDC PO SCH ×3 (08:56→22:18)
[2020-09-06] MEDS: metFORMIN 500 MG TAB PO SCH ×3 (08:56→22:11)
[2020-09-06] MEDS: BENZTROPINE 1 MG TAB PO SCH ×3 (08:57→22:14)
[2020-09-06] MEDS ORDERED: OLANZapine 10 MG VIAL IM SCH ×2 (09:00→22:50)
[2020-09-06] MEDS: DULoxetine 30 MG CAPDR PO SCH ×3 (09:02→22:15)
[2020-09-06] MEDS: INVOKANA 300 MG PO SCH (09:02)
--- NOTE | 2020-09-06 09:15 | NUR ---
MORNING MEDICATIONS ADMINISTERED EXCEPT BP MEDS PER PARAMETERS 98/68, PATIENT REPOSITIONED, BLOOD SUGAR 147, NO INSULIN NEEDED.
--- NOTE | 2020-09-06 11:03 | NUR ---
PT REMINDED TO STAY IN PRONE POSITION. O2 SAT IS 95% AT THIS TIME. WILL CONTINUE TO MONITOR.
--- NOTE | 2020-09-06 13:00 | NUR ---
AFTERNOON MEDICATION ADMINISTERED, PT BEDDING WAS REPLACED, PT RESTING IN BED, WILL CONTINUE TO MONITOR
--- NOTE | 2020-09-06 13:00 | NUR ---
PT VOIDED ONE TIME, CHANGED AND CLEANED.
[2020-09-06] MEDS: QUEtiapine FUMARATE 25 MG TAB PO SCH (13:18)
--- NOTE | 2020-09-06 13:18 | NUR ---
PRN ATIVAN ADMINISTERED DUE TO PT AGITATION, ANXIETY, REMOVING OXYGEN.
[2020-09-06] MEDS: HALOPERIDOL IM 5 MG/ML VIAL IM PRN ×2 (13:48→19:51)
--- NOTE | 2020-09-06 13:50 | NUR ---
PRN HALDOL IM ADMINISTERED DUE TO SEVERE AGITATION, RESTLESSNESS, GETTING OUT OF BED AND REMOVING OXYGEN. WILL CONTINUE TO MONITOR.
--- NOTE | 2020-09-06 14:17 | NUR ---
RT AT BEDSIDE AT THIS TIME.
--- NOTE | 2020-09-06 15:45 | NUR ---
PT IS RESTING IN BED, CURRENT O2 SAT 92%, WILL CONTINUE TO MONITOR
[2020-09-06] MEDS: INSULIN LISPRO SLIDING SCALE 100 UNITS/ML VIAL SUBQ PRN ×2 (16:48→23:02)
--- NOTE | 2020-09-06 17:00 | NUR ---
EVENING MEDICATIONS ADMINISTERED, INSULIN COVERAGE ADMINISTERED PER PARAMETERS BS 176, PRN ATIVAN ADMINISTERED, WILL CONTINUE TO MONITOR.
--- NOTE | 2020-09-06 17:44 | NUR ---
PT NOW SUPINE LONG TOLERATED, O2 SAT 93%. WILL CONTINUE TO MONITOR.
[2020-09-06] MEDS: REMDESIVIR (EUA) 100 MG in NACL 0.9% 100 ML IV SCH (18:20)
--- NOTE | 2020-09-06 19:15 | NUR ---
HANDOFF GIVEN TO REPAIR MANAGER RN.
--- NOTE | 2020-09-06 19:16 | NUR ---
RECIEVED ENDORSEMENT FROM DAY SHIFT RN, PT SEDATED RASS -1, AGITATED AND CONFUSED, PT LUNGS DIMINISHED BILATERAL, HFNC 35LPM AND NRB 15LPM WITH FIO2 100%, PT ABD SOFT AND NON TENDER, SKIN INTACT AND WARM/DRY, PT ST ON MONITOR, PERIPHERAL PULSES PALPABLE TO TOUCH, PT INCONTINENT, ROLANDA MIDLINE RUNNING PRECEDEX 1.2 MCG/KG/MIN RATE 23.67 MLS/HR AND D5 HALF NS 40MLS/HR, SAFETY MEASURES IN PLACE, WILL CONTINUE WITH CURRENT POC AND MONITORING
--- NOTE | 2020-09-06 19:51 | NUR ---
PT AGITATED, SP02 DECREASING, ADMINISTERED HALDOL MG
--- NOTE | 2020-09-06 20:39 | NUR ---
PT STILL AGITATED AND RESTLESS, REPOSITIONED PT, ADMINISTERED ATIVAN 2MG
[2020-09-06] MEDS: LATUDA PO SCH ×2 (21:00→22:12)
[2020-09-06] MEDS: [UNRECOGNIZED DRUG - OTHER] PO SCH ×2 (21:00→22:12)
--- NOTE | 2020-09-06 21:00 | NUR ---
UPON BEDSIDE ARRIVAL PT SPO2 LOW 70s ON HIGHFLOW + NRB PT WAS PLACED IN LATERAL POSITION SPO2 INCREASED TO LOW 80s DR VILLEDA WAS PAGED - ABG RESULTS WERE REPORTED TO DR QUIROZ FOLLOWS PH 7.404 CO2 25.5 HCO3 15.6 BE -7.6 ON FIO2 100% FLOW 40 LPM HIGHFLOW + NRB PT SPO2 MARIS TO MID TO HIGH 80S PER DR QUIROZ IF PT WERE TO DESAT TO 70s ONCE MORE WE WILL INTUBATE, I WILL ALSO INFORM ED
--- NOTE | 2020-09-06 21:00 | NUR ---
BED SIDE ASSESSMENT OF SWALLOWING CAPABILITY, PT UNABLE TO SWALLOW MEDICATIONS PER ORDERED
--- NOTE | 2020-09-06 21:15 | NUR ---
PT BLOOD GLUCOSE 152, ADMINISTERED HUMALOG 2 UNITS PER PROTOCOL
[2020-09-06] MEDS: LEVOFLOXACIN 750 MG/D5W PREMIX 150 ML IV SCH (22:07)
[2020-09-06] MEDS ORDERED: HALOPERIDOL IM 5 MG/ML VIAL IM PRN ×2 (22:35→23:50)
[2020-09-07] VITALS (103 sets, daily range): BP systolic 81–161; BP diastolic 42–98
--- NOTE | 2020-09-07 00:09 | NUR ---
PT SPO2 85 HR 111 WILL CONTINUE TO MONITOR
[2020-09-07] MEDS: LORazepam 2 MG/ML VIAL IM/IVP PRN (00:45)
--- NOTE | 2020-09-07 00:45 | NUR ---
REPOSITIONED PT, PT BECAME AGITATED AND RESTLESS, ADMINISTERED ATIVAN 2MG
--- NOTE | 2020-09-07 01:45 | NUR ---
PT AGITATED AND RESTLESS, REPOSITIONED PT, ADMINISTERED HALDOL 5MG
[2020-09-07] MEDS: DEXMEDETOMIDINE HCL 400 MCG in NACL 0.9% 96 ML IV PRN (02:43)
[2020-09-07] MEDS ORDERED: PROPOFOL 1000 MG/100 ML PREMIX 100 ML IV ONE (03:24)
--- NOTE | 2020-09-07 04:00 | NUR ---
PT STARTED DESATING, PT INTUBATED
--- NOTE | 2020-09-07 04:10 | NUR ---
ETT TO VENT AC/VC FIO2 100% PEEP 5 RATE 20
--- NOTE | 2020-09-07 04:12 | NUR ---
APPROX 04:[address] RUIZ WAS CALLED TO BEDSIDE AND PT WAS INTUBATED W/ ETT 7.5 @ 23CM. PT IS ON ACVC 500 + 5, f 20. VENT IS PLUGGED INTO RED OUTLET AND AMBU @ BEDSIDE WILL CONTINUE TO MONITOR
[2020-09-07] MEDS ORDERED: SODIUM BICARBONATE 8.4% 100 MEQ in DEXTROSE 5% 1,000 ML IV SCH (05:40)
--- NOTE | 2020-09-07 06:01 | NUR ---
PER XRAY RESULTS. ETT ADVANCE 3 CM. RN AWARE. ETT AT 26CM AT THE LIP
[2020-09-07 06:15] LABS: BASOPHILS # (AUTO) 0.2 K/uL (0.00-0.22); BASOPHILS % (AUTO) 1.1 % (0.0-2.0); EOSINOPHILS # (AUTO) 0.1 K/uL (0-0.4); EOSINOPHILS % (AUTO) 0.3 % (0.0-4.0); HEMATOCRIT 35.9 % (36-52); HEMOGLOBIN 11.2 g/dL (12.0-18.0); LYMPHOCYTES # (AUTO) 0.5 K/uL (2.0-11.5); LYMPHOCYTES % (AUTO) 3.1 % (20.5-51.1); MEAN CORPUSCULAR HEMOGLOBIN 24 pg (27-31); MEAN CORPUSCULAR HGB CONC 31 g/dL (33-37); MEAN CORPUSCULAR VOLUME 77.3 fL (80-94); MONOCYTES # (AUTO) 0.6 K/uL (0.8-1.0); MONOCYTES % (AUTO) 3.8 % (1.7-9.3); NEUTROPHILS # (AUTO) 15.6 K/uL (1.8-7.7); NEUTROPHILS % (AUTO) 91.7 % (42.2-75.2); PLATELET COUNT (AUTO) 259 K/uL (140-450); RED BLOOD CELL COUNT(AUTO) 4.65 MIL/uL (4.20-6.10); RED CELL DISTRIBUTION WIDTH 16.2 % (11.6-13.7)
--- NOTE | 2020-09-07 06:30 | NUR ---
REPOSITIONED PT, FC INSERTED, OGT INSERTED, BLOOD GLUCOSE 124
[2020-09-07] MEDS: BLOOD GLUCOSE MONITORING 1 DEV DEV FS SCH ×4 (07:08→21:25)
[2020-09-07 07:11] LABS: ALBUMIN 2.4 g/dL (3.4-5.0); CARBON DIOXIDE 19.3 mmol/L (21-32); MAGNESIUM 2.2 mg/dL (1.8-2.4); PHOSPHORUS 3.3 mg/dL (2.5-4.9); POTASSIUM 4.3 mmol/L (3.5-5.1); TOTAL BILIRUBIN 0.7 mg/dL (0.0-1.0)
--- NOTE | 2020-09-07 07:33 | NUR ---
ENDORSED TO DAY SHIFT RN FOR CONTINUITY OF CARE
--- NOTE | 2020-09-07 07:34 | NUR ---
RECEIVED BEDSIDE REPORT FROM RAIL DETECTOR CAR OPERATOR NURSE FARHEEN RN, PT SEDATED RASS -3. DRY WEIGHT 78.9KG, PT HAS MIDLINE TO R UPPER ARM, PATENT INTACT, INFUSING PROPOFOL @ 50MCG/KG/MIN, INFUSING WELL AND D5 1/2 NS @ 40ML/HR, INFUSING WELL, PT ON ETT TO VENT FIO2 100%, TV 500, PEEP 5, SATURATING @ 100%, OGT IN PLACE, PT NPO EXCEPT MEDS, RESIDUAL 5ML, PLACEMENT CONFIRMED WITH AUSCULTATION, FITZGERLAD CATH IN PLACE DRAINING TO GRAVITY, INITIAL ASSESSMENT DONE, ALL SAFETY PRECAUTION MET, CALL LIGHT WITHIN REACH, WILL CONTINUE TO MONITOR.
[2020-09-07] MEDS ORDERED: MIDAZOLAM MDV 50 MG in NACL 0.9% 40 ML IV PRN (08:15)
--- NOTE | 2020-09-07 08:15 | NUR ---
DR QUIROZ AT BEDSIDE, PT STILL AGITATED FIGHTING THE VENT AND TRYING TO GET UP, DR. QUIROZ ORDERED VERSED DRIP, WILL CONTINUE WITH ORDERS.
[2020-09-07] MEDS: metFORMIN 500 MG TAB PO SCH ×2 (08:56→17:31)
[2020-09-07] MEDS: ATORVASTATIN 20 MG TAB PO SCH (08:57)
[2020-09-07] MEDS: LACTULOSE 20 GM/30 ML UDC PO SCH ×2 (08:57→20:55)
[2020-09-07] MEDS: QUEtiapine FUMARATE 25 MG TAB PO SCH (08:57)
[2020-09-07] MEDS: BENZTROPINE 1 MG TAB PO SCH ×2 (08:57→20:55)
[2020-09-07] MEDS: DEXAMETHASONE 4 MG/ML VIAL IVP SCH (08:58)
[2020-09-07] MEDS: DULoxetine 30 MG CAPDR PO SCH ×2 (08:59→20:55)
[2020-09-07] MEDS ORDERED: OLANZapine 10 MG VIAL IM SCH (09:00)
[2020-09-07] MEDS: lisinopriL 20 MG TAB PO SCH (09:00)
[2020-09-07] MEDS: amLODIPine 5 MG TAB PO SCH (09:00)
[2020-09-07] MEDS: INVOKANA 300 MG PO SCH (09:03)
[2020-09-07] MEDS: ENOXAPARIN 80 MG/0.8 ML SYR SUBQ SCH ×2 (09:07→21:30)
--- NOTE | 2020-09-07 09:07 | NUR ---
DUE MEDICATIONS ADMINISTERED, PT TOLERATED WELL, WILL CONTINUE TO MONITOR.
[2020-09-07] MEDS: MIDAZOLAM MDV 50 MG in NACL 0.9% 40 ML IV PRN ×2 (09:08→19:13)
[2020-09-07] MEDS: PROPOFOL 1000 MG/100 ML PREMIX 100 ML IV PRN ×3 (10:33→20:30)
[2020-09-07] MEDS: INSULIN LISPRO SLIDING SCALE 100 UNITS/ML VIAL SUBQ PRN ×3 (12:30→21:32)
--- NOTE | 2020-09-07 12:30 | NUR ---
BLOOD SUGAR CHECKED 222, INSULIN GIVEN PER PROTOCOL, PT RESTING, WILL CONTINUE TO MONITOR.
[2020-09-07] MEDS: SODIUM BICARBONATE 8.4% 150 MEQ in DEXTROSE 5% 1,000 ML IV SCH (17:16)
--- NOTE | 2020-09-07 17:31 | NUR ---
DUE MEDICATION ADMINISTERED, PT TOLERATED WELL, NO DISTRESS NOTED, WILL CONTINUE TO MONITOR.
[2020-09-07] MEDS: REMDESIVIR (EUA) 100 MG in NACL 0.9% 100 ML IV SCH (18:38)
--- NOTE | 2020-09-07 19:15 | NUR ---
ENDORSED PT TO UNIT EDUCATOR NURSE FOR CONTINUOUS OF CARE.
--- NOTE | 2020-09-07 19:16 | NUR ---
RECIEVED ENDORSEMENT FROM DAY SHIFT RN, PT SEDATED RASS -3, PT ST ON MONITOR, PERIPHERAL PULSES PALPABLE, LUNGS DIMINISHED, ETT TO VENT ACVC FIO2 100% RATE 20PEEP 5, OGTUBE, ABD SOFT AND TENDER, FC IN PLACE, SKIN INTACT, WARM AND DRY, PT HAS ROLANDA MIDLINE, RUNNING VERSED 3MG/HR, PROPOFOL 40MCG/KG/MIN, DRY WEIGH 78.9, BICARB 150MEG/HR. NS 2 MLS/HR, PT ON RESTRAINTS, PT SHOWING NO SIGNS OF ACUTE DISTRESS, SAFETY MEASURES IN PLACE, WILL CONTINUE TO MONITOR
[2020-09-07] MEDS: LEVOFLOXACIN 750 MG/D5W PREMIX 150 ML IV SCH (20:15)
[2020-09-07] MEDS: ALBUTEROL SULFATE/IPRATROPIU 3 ML SOL IH SCH (20:41)
[2020-09-07] MEDS: [UNRECOGNIZED DRUG - OTHER] PO SCH (20:56)
[2020-09-07] MEDS: LATUDA PO SCH (20:56)
--- NOTE | 2020-09-07 21:30 | NUR ---
REPOSITIONED PT, ADMINISTERED 2100 MEDICATIONS PER ORDERED, PT BLOOD GLUCOSE 167, GAVE 2 UNITS HUMALOG, ORAL CARE AND SUCTIONING PERFORMED, PT SHOWING NO SIGNS OF ACUTE DISTRESS, AFEBRILE, SAFETY MEASURES IN PLACE, WILL CONTINUE TO MONITOR
[2020-09-08] VITALS (105 sets, daily range): BP systolic 62–158; BP diastolic 24–86
--- NOTE | 2020-09-08 00:10 | NUR ---
REPOSITIONED PT, ORAL CARE AND SUCTIONING PERFORMED, PT SHOWING NO SIGNS OF ACUTE DISTRESS, AFEBRILE, SAFETY MEASURES IN PLACE, WILL CONTINUE TO MONITOR
[2020-09-08] MEDS ORDERED: SODIUM BICARBONATE 8.4% PFS 50 MEQ/50 ML SYR IVP ONE ×2 (01:10→01:18)
[2020-09-08] MEDS: ALBUTEROL SULFATE/IPRATROPIU 3 ML SOL IH SCH ×4 (01:25→20:50)
[2020-09-08] MEDS: SODIUM BICARBONATE 8.4% 150 MEQ in DEXTROSE 5% 1,000 ML IV SCH (01:52)
[2020-09-08] MEDS: PROPOFOL 1000 MG/100 ML PREMIX 100 ML IV PRN ×3 (03:32→12:28)
--- NOTE | 2020-09-08 03:46 | NUR ---
STEPHANIE NEW BAG OF PROPOFOL 35MCG/KG/MIN, STEPHANIE NEW BAG OF BICARD
[2020-09-08] MEDS: DEXT 5% / NACL 0.45% 1,000 ML IV SCH (04:57)
[2020-09-08 05:30] LABS: BASOPHILS % (AUTO) 0.3 % (0.0-2.0); EOSINOPHILS # (AUTO) 0.2 K/uL (0-0.4); EOSINOPHILS % (AUTO) 1.6 % (0.0-4.0); HEMATOCRIT 33.3 % (36-52); HEMOGLOBIN 10.7 g/dL (12.0-18.0); LYMPHOCYTES # (AUTO) 0.6 K/uL (2.0-11.5); LYMPHOCYTES % (AUTO) 4.7 % (20.5-51.1); MEAN CORPUSCULAR HEMOGLOBIN 25 pg (27-31); MEAN CORPUSCULAR HGB CONC 32 g/dL (33-37); MEAN CORPUSCULAR VOLUME 76.9 fL (80-94); MONOCYTES # (AUTO) 0.3 K/uL (0.8-1.0); MONOCYTES % (AUTO) 2.5 % (1.7-9.3); NEUTROPHILS # (AUTO) 11.6 K/uL (1.8-7.7); NEUTROPHILS % (AUTO) 90.9 % (42.2-75.2); PLATELET COUNT (AUTO) 220 K/uL (140-450); RED BLOOD CELL COUNT(AUTO) 4.33 MIL/uL (4.20-6.10); RED CELL DISTRIBUTION WIDTH 15.9 % (11.6-13.7); WHITE BLOOD COUNT (AUTO) 12.8 K/uL (4.8-10.8)
--- NOTE | 2020-09-08 05:45 | NUR ---
REPOSITIONED PT, PERFORMED MORNING CARE, ORAL CARE AND SUCTIONING PERFORMED, PT SHOWING NO SIGNS OF ACUTE DISTRESS, WILL CONTINUE TO MONITOR
[2020-09-08 06:04] LABS: CARBON DIOXIDE 30.4 mmol/L (21-32); POTASSIUM 3.4 mmol/L (3.5-5.1)
[2020-09-08 06:13] LABS: MAGNESIUM 2.3 mg/dL (1.8-2.4); PHOSPHORUS 2.2 mg/dL (2.5-4.9)
--- NOTE | 2020-09-08 07:17 | NUR ---
ENDORSED TO DAYSHIFT RN FOR CONTINUITY OF CARE
--- NOTE | 2020-09-08 07:20 | NUR ---
RECEIVED REPORT FROM RAG WILLOW OPERATOR NURSE. RASS -3. DRY WEIGHT 78.9KG. ETT TO VENT FIO2 65%, TV 500, PEEP 5. MIDLINE TO R UPPER ARM INFUSING PROPOFOL @ 35MCG/KG/MIN, AND VERSED AT 3MG/H INFUSING WELL AND D5 1/2 NS @ 40ML/HR, INFUSING WELL. OGT IN PLACE, PT NPO EXCEPT MEDS. FITZGERALD CATH PATENT AND INTACT, DRAINING CLEAR YELLOW URINE. SAFETY PRECAUTION MET, CALL LIGHT WITHIN REACH, WILL CONTINUE TO MONITOR.
[2020-09-08] MEDS: BLOOD GLUCOSE MONITORING 1 DEV DEV FS SCH ×4 (07:32→21:08)
[2020-09-08] MEDS ORDERED: ROCURONIUM 50 MG/5 ML VIAL IV ONE (08:10)
[2020-09-08] MEDS ORDERED: ETOMIDATE 20 MG/10 ML VIAL IVP ONE (08:10)
[2020-09-08] MEDS: metFORMIN 500 MG TAB PO SCH ×2 (08:20→17:24)
[2020-09-08] MEDS: QUEtiapine FUMARATE 25 MG TAB PO SCH (08:20)
[2020-09-08] MEDS: ATORVASTATIN 20 MG TAB PO SCH (08:20)
[2020-09-08] MEDS: DEXAMETHASONE 4 MG/ML VIAL IVP SCH (08:20)
[2020-09-08] MEDS: LACTULOSE 20 GM/30 ML UDC PO SCH ×2 (08:20→20:48)
[2020-09-08] MEDS: DULoxetine 30 MG CAPDR PO SCH ×2 (08:20→20:48)
[2020-09-08] MEDS: BENZTROPINE 1 MG TAB PO SCH ×2 (08:20→20:49)
[2020-09-08] MEDS: INVOKANA 300 MG PO SCH (08:20)
[2020-09-08] MEDS: lisinopriL 20 MG TAB PO SCH (08:20)
[2020-09-08] MEDS: amLODIPine 5 MG TAB PO SCH (08:20)
[2020-09-08] MEDS: ENOXAPARIN 80 MG/0.8 ML SYR SUBQ SCH ×2 (09:00→21:09)
[2020-09-08 09:07] LABS: FERRITIN 219 ng/mL (30-400)
[2020-09-08] MEDS: MORPHINE SULFATE 2 MG/ML SYR IVP PRN (09:12)
[2020-09-08] MEDS: ACETAMINOPHEN 325 MG TAB PO PRN (09:12)
--- NOTE | 2020-09-08 09:30 | NUR ---
DUE MORNING MEDS GIVEN ORDERED. OGT INTACT AND PATENT, NO RESIDUALS NOTED
--- NOTE | 2020-09-08 10:00 | NUR ---
PERICARE, ORAL CARE AND FITZGERALD CARE DONE. REPOSITIONED PT
--- NOTE | 2020-09-08 10:55 | NUR ---
MEDICAL RECORD CODER CALLED TO BEDSIDE PATIENT PRESENTING WITH DECLINING EXPIRATORY Vt LESS THAN 6 ml/kg DECLINING SATURATION TO 75% RESPIRATIONS MAINTAINING AT +45 BPM BREATH SOUNDS RALE BILATERAL INCREASED PC TO 25 cmH2O TO MAINTAIN EXPIRATORY Vt EQUAL/GREATER THAN 6 mL/kg INCREASED FIO2 TO 90% TO MAINTAIN SATURATION EQUAL/GREATER THAN 90% INCREASED PEEP TO 12 cmH2O (ARDS PROTOCOL 14 cmH2O) DUE TO SYSTOLIC AT MID TO UPPER 90 mmHg ALYSIA/RN NOTIFIED
--- NOTE | 2020-09-08 11:12 | NUR ---
DR. DAVID SAMUEL MD AWARE OF INCREASED RESPIRATORY RATE OF +45 BPM MD REVIEWED CURRENT VENTILATOR SETTINGS MD STATES "OK WITH SETTINGS" NO ABG REQUIRED MD TO ORDER FENTANYL TO CONTROL RESPIRATIONS MD STATES "THAT AFTER FENTANYL IS INFUSED ADJUST VENTILATOR SETTINGS NEEDED"
[2020-09-08] MEDS ORDERED: fentaNYL citrate 1 MG in NACL 0.9% 80 ML IV PRN (11:15)
[2020-09-08] MEDS ORDERED: fentaNYL citrate - 50mL vial 2.5 MG in NACL 0.9% 200 ML IV PRN (11:25)
--- NOTE | 2020-09-08 12:48 | NUR ---
WINDOWS SERVER ENGINEER CALLED TO BEDSIDE PATIENT PRESENTING WITH DECLINING SATURATION TO 65% STAT ABG ORDERED
--- NOTE | 2020-09-08 13:03 | NUR ---
CALLED DR. DAVID BALDWIN [phone] TO REVIEW ABG SAMPLE REPORT SPOKE TO HARISH, EXCHANGE WILL PAGE FOREMENTIONED CALL BACK NUMBER [facility] [phone]
--- NOTE | 2020-09-08 13:06 | NUR ---
CALL BACK FROM DR. DAVID BALDWIN REVIEWED STAT ABG SAMPLE REPORT NEW ORDER: INCREASE PC TO [id number] RATE TO 22 PEEP 12 cmH2O FIO2 100%
--- NOTE | 2020-09-08 13:08 | NUR ---
DR QUIROZ NOTIFIED OF INCREASED HR IN 130 SINUS TACH, RR 40'S, NOTIFIED OF PROPOFOL, FENTANYL MAX DOSE, OK TO PRONE TO IMPROVE OXYGENATION.
--- NOTE | 2020-09-08 13:20 | NUR ---
PATIENT SUCCESSFULLY PLACED IN PRONE POSITION WITHOUT COMPLICATIONS HEAD TURNED TO RIGHT SIDE ENDOTRACHEAL MOVED TO RIGHT SIDE OF ORAL ALYSIA/RN NOTIFIED OF VENTILATOR ADJUSTMENTS NOTED AT 1303
--- NOTE | 2020-09-08 13:31 | NUR ---
ADJUSTMENT TO VENTILATOR NOTED AT 1306 PC 30 cmH2O RATE 22 PEEP 12 cmH2O FIO2 100% JACQUARD TWINE POLISHER OPERATOR TO NOTIFY ALYSIA/RN
[2020-09-08] MEDS: PHENYLEPHRINE 40 MG in NACL 0.9% 250 ML IV PRN ×2 (14:00→21:20)
[2020-09-08] MEDS: PHENYLEPHRINE 10 MG in NACL 0.9% 250 ML IV PRN ×2 (14:00→14:59)
--- NOTE | 2020-09-08 14:00 | NUR ---
SBP<90. STARTED BRIDGETTE AT 50MCG/MIN ORDERED
--- NOTE | 2020-09-08 14:38 | NUR ---
09/08/20 RD FOLLOW UP COMPLETED PLEASE REFER TO NUTRITION ASSESSMENT UNDER CARE ACTIVITY FOR ESTIMATED NUTRITIONAL NEEDS. 1. RECOMMEND VITAL AF 1.2 @ 50 ML/HR X 24 HR -THIS WILL PROVIDE 1440 KCAL AND 90 GM OF PROTEIN. THIS MEETS 78% OF ESTIMATED KCAL AND 100% OF PROTEIN 2. RECOMMEND FREE WATER FLUSH OF 115 ML Q6H 3. PROPOFOL WILL PROVIDE ADDITIONAL CALORIES. 1.1 KCAL/ML OF PROPOFOL 4. RD TO FOLLOW-UP 2-3 DAYS, HIGH RISK ALEIDA BENTLEY RD
[2020-09-08] MEDS ORDERED: PHENYLEPHRINE 40 MG in NACL 0.9% 250 ML IV PRN (15:35)
--- NOTE | 2020-09-08 16:07 | NUR ---
TOLERATING PRONE POSITION WELL WITHOUT COMPLICATIONS GOOD CHEST RISE ENDOTRACHEAL SUCTION FOR SMALL THIN YELLOW SECRETIONS AIRWAY PATENT
--- NOTE | 2020-09-08 17:43 | NUR ---
RESTING WELL GOOD CHEST RISE AND AERATION THROUGHOUT BILATERAL LUNG SOTO I/E RATIO AT 1:4.4 INCREASED I/TIME TO 0.70 NOW 1:2.0
--- NOTE | 2020-09-08 18:48 | NUR ---
PT BP 89/51. PT ALREADY BRIDGETTE DRIP 150MCG. PAGED DR FAY. ORDERED 1L NS BOLUS AND TO START LEVOPHED PRN TO MAINTAN SBP>90
[2020-09-08] MEDS ORDERED: NACL 0.9% 1,000 ML IV SCH (18:50)
--- NOTE | 2020-09-08 19:15 | NUR ---
RECEIVED ENDORSEMENT FROM DAY SHIFT RN, PT SEDATED RASS -3, PT IN PRONE POSITION, SR ON MONITOR, PERIPHERAL PULSES PALPABLE, SKIN WARM AND DRY TO TOUCH, SKIN INTACT, LUNGS DIMINISHED, ETT TO VENT ACPC FIO2 100% PEEP 12 RATE 22, FC IN PLACE, URINE YELLOW AND CLEAR, PT HAS ROLANDA MIDLINE RUNNING LEVO 8MCG/MIN, VERSED 1MG/HR, BRIDGETTE 150MCG/MIN, D5 HALF NS 40MG/HR, PROPOFOL 15MCG/KG/MIN, DW 78.9, PT AFEBRILE, SHOWING NO SIGNS OF ACUTE DISTRESS, SAFETY MEASURES IN PLACE, WILL CONTINUE TO MONITOR
--- NOTE | 2020-09-08 19:30 | NUR ---
STARTED LEVOPHED AT 8MCG
[2020-09-08] MEDS: NOREPINEPHRINE 8 MG in DEXTROSE 5% 250 ML IV PRN (19:38)
--- NOTE | 2020-09-08 20:36 | NUR ---
PT RECEIEVED ON [facility] P30 +12,TI 0.7, f 22, 100% AMBU AT BEDSIDE W/ VENT PLUGGED INTO RED OUTLET. SPUTUM WAS COLLECTED AND SENT TO LAB. 2X ABG ATTEMPT WAS UN-SUCCESSFUL WILL ATTEMPT AT A LATER TIME Addendum: 09/08/20 at 2347 by Fredy Aguero Jr RT ASSISTED LINDSAY ZHONG WITH TURNING HEAD/REPOSITIONING PT W/ L SIDE FACE UP
[2020-09-08] MEDS: [UNRECOGNIZED DRUG - OTHER] PO SCH (20:49)
[2020-09-08] MEDS: LATUDA PO SCH (20:49)
--- NOTE | 2020-09-08 21:30 | NUR ---
PT AFEBRILE, <5ML RESIDUAL FROM OGT TUBE, ADMINISTERED 2100H MEDICATIONS PER ORDERED, PT SHOWING NO SIGNS OF ACUTE DISTRESS, SAFETY MEASURES IN PLACE, WILL CONTINUE TO MONITOR
[2020-09-08] MEDS: INSULIN LISPRO SLIDING SCALE 100 UNITS/ML VIAL SUBQ PRN (21:45)
--- NOTE | 2020-09-08 21:45 | NUR ---
PT BLOOD GLUCOSE 201, 4 UNITS OF HUMALOG GIVEN PER PROTOCOL
--- NOTE | 2020-09-08 23:45 | NUR ---
PT STILL IN PRONE POSITION, PT AFEBRILE, SHOWING NO SIGNS OF ACUTE DISTRESS, SAFETY MEASURES IN PLACE, WILL CONTINUE TO MONITOR
[2020-09-09] VITALS (107 sets, daily range): BP systolic 93–194; BP diastolic 45–120
[2020-09-09] MEDS: ALBUTEROL SULFATE/IPRATROPIU 3 ML SOL IH SCH ×4 (00:14→19:54)
--- NOTE | 2020-09-09 00:37 | NUR ---
AB 09/08/20 00:23 INCORRECT DATE - CORRECTION ABG 00:23 09/09/2020 PH 7.355 CO2 45.6 PO2 100.8 HCO3 24.9 BE -0.8
[2020-09-09] MEDS: PHENYLEPHRINE 40 MG in NACL 0.9% 250 ML IV PRN ×4 (02:06→18:57)
--- NOTE | 2020-09-09 02:15 | NUR ---
PT STILL ON PRONE POSITION, AFEBRILE, PT SHOWING NO SIGNS OF ACUTE DISTRESS, SAFETY MEASURES IN PLACE, WILL CONTINUE TO MONITOR
[2020-09-09] MEDS: PROPOFOL 1000 MG/100 ML PREMIX 100 ML IV PRN ×2 (03:06→15:33)
--- NOTE | 2020-09-09 03:10 | NUR ---
HUNG NEW BOTTLE OF PROPOFOL 15MCG/KG/MIN
--- NOTE | 2020-09-09 05:30 | NUR ---
REPOSITIONED PT TO SUPINE LEFT SIDE, PT AFEBRILE, ORAL CARE AND SUCTIONING PERFORMED, AM CARE GIVEN, PT SHOWING NO SIGNS OF ACUTE DISTRESS, SAFETY MEASURES IN PLACE, WILL CONTINUE TO MONITOR
[2020-09-09 05:56] LABS: HEMATOCRIT 32.4 % (36-52); HEMOGLOBIN 10.1 g/dL (12.0-18.0); MEAN CORPUSCULAR HEMOGLOBIN 24 pg (27-31); MEAN CORPUSCULAR HGB CONC 31 g/dL (33-37); MEAN CORPUSCULAR VOLUME 77.9 fL (80-94); PLATELET COUNT (AUTO) 292 K/uL (140-450); RED BLOOD CELL COUNT(AUTO) 4.16 MIL/uL (4.20-6.10); RED CELL DISTRIBUTION WIDTH 16.2 % (11.6-13.7); WHITE BLOOD COUNT (AUTO) 22.4 K/uL (4.8-10.8)
[2020-09-09 06:14] LABS: MAGNESIUM 2.3 mg/dL (1.8-2.4); PHOSPHORUS 4.4 mg/dL (2.5-4.9)
[2020-09-09 06:15] LABS: ANION GAP 17.8 (8-16); CARBON DIOXIDE 25.1 mmol/L (21-32); CREATININE 2.3 mg/dL (0.6-1.3); POTASSIUM 3.9 mmol/L (3.5-5.1)
[2020-09-09] MEDS: BLOOD GLUCOSE MONITORING 1 DEV DEV FS SCH ×4 (06:40→20:20)
[2020-09-09] MEDS: INSULIN LISPRO SLIDING SCALE 100 UNITS/ML VIAL SUBQ PRN ×4 (06:40→20:31)
--- NOTE | 2020-09-09 06:41 | NUR ---
BLOOD GLUCOSE 223, ADMINISTERED 4 UNITS HUMALOG PER PROTOCOL
--- NOTE | 2020-09-09 07:06 | NUR ---
RECEIVED ON A [employer] R860 VENTILATOR PLUGGED INTO RED OUTLET TOLERATING WELL WITHOUT ADVERSE REACTIONS NOTED TO AN ENDOTRACHEAL TUBE #7.5 SECURED AT 25cm TEETH/GUM LINE WITH AN ANCHOR FAST CUFF PRESSURE CHECKED NOTES AMBU BAG AT BEDSIDE LOC SEDATED RESTING COMFORTABLE NO EVIDENCE OF PULMONARY DISTRESS NOTED EQUAL CHEST RISE ENDOTRACHEAL TUBE SUCTION FOR MODERATE THIN YELLOW/BROWN SECRETIONS POST HHN THERAPY GOOD AERATION THROUGHOUT BILATERAL LUNG SOTO AIRWAY PATENT Addendum: 09/09/20 at 0729 by Nikita Tena RT REVIEWED ABG SAMPLE REPORT 09/09/2020 AT 00:23 po2 100.8 SATURATION 100% ON FIO2 OF 100% POST HHN THERAPY TITRATED FIO2 TO 90% JANETH/LINDSAY NOTIFIED
[2020-09-09 07:09] LABS: LYMPHOCYTES % (MANUAL) 2 % (20-46); MONOCYTES % (MANUAL) 2 % (5-12)
--- NOTE | 2020-09-09 07:25 | NUR ---
ENDORSED TO DAY SHIFT RN FOR CONTINUITY OF CARE
--- NOTE | 2020-09-09 07:26 | NUR ---
RECEIVED WINDOW-SIDE REPORT FROM HYDROPONICS WORKER FARHEEN. PT LAYING IN BED, ENHANCED DROPLET PRECAUTIONS, RASS -3, UNABLE TO MAKE NEEDS KNOWN. BREATHING EVEN AND UNLABORED, NO SIGNS ON ACUTE DISTRESS NOTED. ETT TO VENT: ACPC FIO2 90%, RR 22, PEEP 12, SPO2 100%. ROLANDA MIDLINE RUNNING PROPOFOL 15 MCG/KG/MIN, LEVOPHED 8 MCG/MIN, D5NS 40 ML/HR, MIDAZOLM 1 MG/HR, PHENYLE 150 MCG/MIN. OG TUBE IN PLACE. FITZGERALD CATHETER DRAINING TO GRAVITY, CLEAR YELLOW URINE. CHAPERONE IN PLACE. HOB 30 DEGREES, BED IN LOW POSITION. SAFETY MEASURES IN PLACE.
[2020-09-09] MEDS: metFORMIN 500 MG TAB PO SCH (08:00)
[2020-09-09] MEDS: ENOXAPARIN 80 MG/0.8 ML SYR SUBQ SCH (09:00)
[2020-09-09] MEDS: lisinopriL 20 MG TAB PO SCH (09:00)
--- NOTE | 2020-09-09 09:46 | NUR ---
NO DISTRESS NOTED EQUAL CHEST RISE AIRWAY PATENT SATURATION 100% ON FIO2 OF 90% TITRATED FIO2 TO 80% JANETH/RN NOTIFIED
[2020-09-09] MEDS: BENZTROPINE 1 MG TAB PO SCH ×2 (09:53→20:18)
[2020-09-09] MEDS: LACTULOSE 20 GM/30 ML UDC PO SCH ×2 (09:53→20:17)
[2020-09-09] MEDS: ATORVASTATIN 20 MG TAB PO SCH (09:53)
[2020-09-09] MEDS: DEXAMETHASONE 4 MG/ML VIAL IVP SCH (09:54)
[2020-09-09] MEDS: DULoxetine 30 MG CAPDR PO SCH ×2 (09:54→20:18)
[2020-09-09] MEDS: INVOKANA 300 MG PO SCH (09:54)
[2020-09-09] MEDS: QUEtiapine FUMARATE 25 MG TAB PO SCH (09:54)
[2020-09-09] MEDS: DEXT 5% / NACL 0.45% 1,000 ML IV SCH (09:55)
--- NOTE | 2020-09-09 10:22 | NUR ---
ADMINISTERED MORNING MEDS PER MD ORDER, HELD PO BP MEDS PT ON IV BP SUPPORT. WILL CONSULT MD REGARDING LOVENOX AND METFORMIN DUE TO ELEVATED CREATININE OF 2.3. FLUSHED OG TUBE BEFORE AND AFTER MEDS. MORNING HYGIENE AND ORAL CARE PROVIDED. FITZGERALD AND MIDLINE CARE PROVIDED. HOB 30 DEGREES. NO SIGNS OF ACUTE DISTRESS NOTED, BREATHING EVEN AND UNLABORED. COMMUNITY ORGANIZER IN PLACE. SAFETY MEASURES IN PLACE.
--- NOTE | 2020-09-09 11:25 | NUR ---
PT PLACED PRONE WITH RT HELP. TING KNEE HEART SHAPED OPTIFOAM PLACED FOR PROPHYLACTIC SKIN PROTECTION. OFFLOAD PRESSURE WITH PILLOWS. BED PLACED TRENDELENBERG. PT TOLERATED WELL, NO SIGNS OF ACUTE DISTRESS NOTED. HYBRID TECHNOLOGIST IN PLACE. SAFETY MEASURES IN PLACE.
--- NOTE | 2020-09-09 11:37 | NUR ---
NO APPARENT RESPIRATORY DISTRESS NOTED EQUAL CHEST RISE AIRWAY PATENT Addendum: 09/09/20 at 1148 by Nikita Tena RT ENDOTRACHEAL SUCTION FOR MODERATE THICK YELLOW SECRETIONS
--- NOTE | 2020-09-09 11:45 | NUR ---
PATIENT SUCCESSFULLY PLACED IN PRONE POSITION WITHOUT COMPLICATIONS NOTED HEAD POSITIONED TO LEFT SIDE ENDOTRACHEAL TUBE POSITIONED TO LEFT SIDE OF ORAL
[2020-09-09] MEDS: NOREPINEPHRINE 8 MG in DEXTROSE 5% 250 ML IV PRN (11:47)
--- NOTE | 2020-09-09 11:59 | NUR ---
BLOOD GLUCOSE CHECK, 172. 2 UNITS HUMALOG ADMINISTERED.
--- NOTE | 2020-09-09 12:25 | NUR ---
NEW BAG OF PHENYLEPHRINE STARTED.
--- NOTE | 2020-09-09 13:08 | NUR ---
PRONE POSITION TOLERATING WELL NO RESPIRATORY DISTRESS NOTED GOOD CHEST RISE ENDOTRACHEAL SUCTION FOR MODERATE SEMI THICK YELLOW SECRETIONS AIRWAY PATENT SATURATION 100% ON FIO2 80% POST HHN THERAPY TITRATED FIO2 TO 70% PER ARDS PROTOCOL DECREASED PEEP TO [id number] PEAK PRESSURE NOW EQUAL/LESS THAN [id number] JANETH/RN NOTIFIED
--- NOTE | 2020-09-09 13:39 | NUR ---
RD RECOMMENDATIONS: 1. VITAL AF 1.2 @ 75 ML/HR X 6 HOURS DURING SUPINE POSITION, WITH PROSOURCE X4 PER DAY -THIS WILL PROVIDE 450 ML OF VOLUME, 780 KCAL AND 78 GM OF PROTEIN PER DAY. THIS MEETS 42% OF ESTIMATED KCAL NEEDS AND 89% OF ESTIMATED PROTEIN NEEDS. 2. RECOMMEND 200 ML BID OF FREE WATER FLUSH (TOTAL OF 400 ML/DAY)
--- NOTE | 2020-09-09 14:03 | NUR ---
RECEIVED A CALL FROM DR AMOS AND INFORMED THAT WBC 22.[address] AMOS AWARE AND RECEIVED ORDER FOR ZOSYN 3.375 GM IVPB Q6H, REPEATED AND CONFIRMED ORDER WITH MD, WILL INPUT ORDER ACCORDINGLY.
--- NOTE | 2020-09-09 15:36 | NUR ---
REPOSITIONED PATIENT'S ARMS AND PERFORMED ROM, PATIENT AGITATED AND TRYING TO ROLL ON HIS BACK. ASSISTED PATIENT TO LAY DOWN AND COMFORT PATIENT, INCREASED PROPOFOL TO 18 MCG. WINDING INSPECTOR AND TESTER IN PLACE. SAFETY MEASURES IN PLACE.
--- NOTE | 2020-09-09 15:55 | NUR ---
PRONE POSITION SEDATED NO APPARENT SOB NOTED GOOD CHEST RISE AIRWAY PATENT
--- NOTE | 2020-09-09 15:56 | NUR ---
DR GOODSON IS ROUNDING ON PT AT BEDSIDE. INFORMED CREATININE LEVEL IS 2.3 FROM AM LAB, PHARMACY SUGGESTED TO HOLD METFORMIN. DR GOODSON IS AWARE AND AGREED TO HOLD METFORMIN. INFORMED DR GOODSON PT HAD BLEEDING IN MOUTH AND SUCTIONED PINK TINGED MUCOUS, DR GOODSON ORDER TO HOLD LOVENOX.
[2020-09-09] MEDS ORDERED: HEPARIN PER PHARMACY MC PRN (16:10)
[2020-09-09] MEDS ORDERED: hePARIN / DEXT 5% PREMIX 250 ML IV SCH (16:10)
[2020-09-09] MEDS: MIDAZOLAM MDV 50 MG in NACL 0.9% 40 ML IV PRN (16:11)
--- NOTE | 2020-09-09 16:11 | NUR ---
STARTED NEW VERSED IV BAG.
--- NOTE | 2020-09-09 16:15 | NUR ---
ABG DRAWN WITH PATIENT IN PRONE POSITION
--- NOTE | 2020-09-09 16:20 | NUR ---
INCREASED IVF TO 100 ML/HR PER DR QUIROZ ORDER.
--- NOTE | 2020-09-09 16:28 | NUR ---
ABG SAMPLE REPORT BY DR. DAVID BALDWIN NEW ORDER: DECREASE RATE TO 18 BPM
--- NOTE | 2020-09-09 16:30 | NUR ---
RECEIVED A CALL FROM DR TIM, UPDATED DR TIM WITH PATIENT'S CONDITION. PER GLENROY, STRICT I&O AND HE WILL ROUND ON PATIENT LATER.
[2020-09-09] MEDS: PANTOPRAZOLE 40 MG INJ VIAL IVP SCH (16:52)
--- NOTE | 2020-09-09 16:57 | NUR ---
ADMINISTERED PROTONIX AND 4 UNITS HUMALOG FOR BLOOD GLUCOSE CHECK 203. TING WRIST RESTRAINTS REMOVED FOR ROM EXERCISES, NO SINGS OF INJURY NOTED. MED EDUCATION PROVIDED, REINFORCEMENT NEEDED. PT IN PRONE POSITION, TOLERATED WELL. NO SIGNS OF ACUTE DISTRESS NOTED. SOLDERING INSPECTOR IN PLACE. SAFETY MEASURES IN PLACE.
--- NOTE | 2020-09-09 17:03 | NUR ---
PRONE POSITION STABLE SEDATED EQUAL CHEST RISE GOOD AERATION THROUGHOUT BILATERAL LUNG SOTO AIRWAY PATENT Addendum: 09/09/20 at 1715 by Nikita Tena RT RATE DECREASED TO [address] GONZALES JEFFRIES SAMPLE REPORT REVIEWED
--- NOTE | 2020-09-09 17:04 | NUR ---
DR OSHEA PAGED AND CALLED BACK, INFORMED OF ORDER TO REPLACE A- LINE, DR ZELAYA CORROSION ENGINEER TODAY, DR OSHEA WILL NOTIFY DR ZELAYA.
[2020-09-09] MEDS: PIPERACILLIN/TAZOBACTAM 2.25 GM in DEXTROSE 5% 50 ML IV SCH ×2 (18:35→23:17)
--- NOTE | 2020-09-09 18:43 | NUR ---
STARTED NEW IV BAG OF ZOSYN.
[2020-09-09] MEDS: hePARIN / DEXT 5% PREMIX 250 ML IV SCH (18:57)
--- NOTE | 2020-09-09 18:58 | NUR ---
STARTED NEW BAG OF PHENYLEPHRINE
--- NOTE | 2020-09-09 19:27 | NUR ---
ENDORSED PATIENT AT WINDOW-SIDE TO FOOD CASHIER NURSE FOR CONTINUITY OF CARE. PATIENT IS IN STABLE CONDITION. SAFETY MEASURES IN PLACE. POT PUSHER IN PLACE.
--- NOTE | 2020-09-09 19:38 | NUR ---
RECEIVED ENDORSEMENT FROM DAY SHIFT RN, PT SEDATED RASS -3, PT IN PRONE POSITION, SR ON MONITOR, PERIPHERAL PULSES PALPABLE, SKIN WARM AND DRY TO TOUCH, SKIN INTACT, LUNGS DIMINISHED, ETT TO VENT ACPC FIO2 60% PEEP 10 RATE 18, FC IN PLACE, URINE YELLOW AND CLEAR, PT HAS ROLANDA MIDLINE RUNNING LEVO 6MCG/MIN, VERSED 1MG/HR, BRIDGETTE 100MCG/MIN, D5 HALF NS 100MG/HR, PROPOFOL 15MCG/KG/MIN, HEPARIN 1100 UNIT/HR (11ML/HR), DW 78.9, PT AFEBRILE, SHOWING NO SIGNS OF ACUTE DISTRESS, SAFETY MEASURES IN PLACE, WILL CONTINUE TO MONITOR
[2020-09-09] MEDS: [UNRECOGNIZED DRUG - OTHER] PO SCH (20:20)
[2020-09-09] MEDS: LATUDA PO SCH (20:20)
--- NOTE | 2020-09-09 21:15 | NUR ---
PT STILL IN PRONE POSITION, OGT <5ML RESIDUAL, ADMINISTERED 2100H MEDICATIONS PER ORDERED, BLOOD GLUCOSE 215, ADMINISTERED 4 UNITS HUMALOG PER PROTOCOL, PT AFEBRILE, PT SHOWING NO SIGNS OF ACUTE DISTRESS, SAFETY MEASURES IN PLACE, WILL CONTINUE TO MONITOR
--- NOTE | 2020-09-09 23:43 | NUR ---
HUNG NEW BAG OF ZOSYN 2.25 GM
[2020-09-10] VITALS (102 sets, daily range): BP systolic 94–160; BP diastolic 47–84
[2020-09-10] MEDS: PROPOFOL 1000 MG/100 ML PREMIX 100 ML IV PRN ×3 (01:20→21:13)
[2020-09-10] MEDS: ALBUTEROL SULFATE/IPRATROPIU 3 ML SOL IH SCH ×4 (01:25→19:12)
--- NOTE | 2020-09-10 01:45 | NUR ---
PT STILL IN PRONE POSITION, PT AFEBRILE, PT SHOWING NO SIGNS OF ACUTE DISTRESS, SAFETY MEASURE SIN PLACE, WILL CONTINUE TO MONITOR
[2020-09-10] MEDS: DEXT 5% / NACL 0.45% 1,000 ML IV SCH ×3 (01:55→17:02)
[2020-09-10] MEDS: PHENYLEPHRINE 40 MG in NACL 0.9% 250 ML IV PRN (02:02)
--- NOTE | 2020-09-10 03:10 | NUR ---
PT IN PRONE POSITION STILL, SHOWING NO SIGNS OF ACUTE DISTRESS, PT AFEBRILE, SAFETY MEASURE SIN PLACE, WILL CONTINUE TO MONITOR
--- NOTE | 2020-09-10 05:10 | NUR ---
HUNG NEW BAG OF ZOSYN 2.25GM
[2020-09-10] MEDS: PIPERACILLIN/TAZOBACTAM 2.25 GM in DEXTROSE 5% 50 ML IV SCH ×4 (05:15→23:47)
[2020-09-10 06:09] LABS: HEMATOCRIT 28.7 % (36-52); HEMOGLOBIN 9.5 g/dL (12.0-18.0); MEAN CORPUSCULAR HEMOGLOBIN 25 pg (27-31); MEAN CORPUSCULAR HGB CONC 33 g/dL (33-37); MEAN CORPUSCULAR VOLUME 76.3 fL (80-94); PLATELET COUNT (AUTO) 252 K/uL (140-450); RED BLOOD CELL COUNT(AUTO) 3.77 MIL/uL (4.20-6.10); RED CELL DISTRIBUTION WIDTH 16.1 % (11.6-13.7)
[2020-09-10] MEDS: BLOOD GLUCOSE MONITORING 1 DEV DEV FS SCH ×4 (06:30→21:14)
[2020-09-10] MEDS: INSULIN LISPRO SLIDING SCALE 100 UNITS/ML VIAL SUBQ PRN ×3 (06:32→21:24)
--- NOTE | 2020-09-10 06:34 | NUR ---
BLOOD GLUCOSE 217, ADMINISTERED HUMALOG 4 UNITS PER PROTOCOL
[2020-09-10 06:47] LABS: ANION GAP 14.7 (8-16); CARBON DIOXIDE 25.9 mmol/L (21-32); CREATININE 1.5 mg/dL (0.6-1.3); POTASSIUM 3.6 mmol/L (3.5-5.1)
[2020-09-10 06:50] LABS: MAGNESIUM 2.8 mg/dL (1.8-2.4)
--- NOTE | 2020-09-10 07:22 | NUR ---
ENDORSED TO DAY SHIFT RN FOR CONTINUITY OF CARE
[2020-09-10 07:23] LABS: LYMPHOCYTES % (MANUAL) 4 % (20-46); MONOCYTES % (MANUAL) 3 % (5-12)
--- NOTE | 2020-09-10 07:23 | NUR ---
RECEIVED REPORT FROM CAMPGROUND HAND NURSE. IN BED PRONED. RASS -3. DRY WEIGHT 78.9KG. ETT TO VENT AC/PC FIO2 70%, PEEP 10. MIDLINE TO R UPPER ARM INFUSING PROPOFOL 15MCG/KG/MIN, VERSED AT 1MG/H, FENTANYL AT 1MCG, LEVO 6MCG, BRIDGETTE 100MCG, D5 1/2 NS @ 100ML/HR, INFUSING WELL. OGT IN PLACE,. FITZGERALD CATH PATENT AND INTACT, DRAINING CLEAR YELLOW URINE. SAFETY PRECAUTION MET, CALL LIGHT WITHIN REACH, WILL CONTINUE TO MONITOR.
--- NOTE | 2020-09-10 08:00 | NUR ---
PT PLACED SUPINE WITH RT HELP. HOB ELEVATED. TOLERATED WELL, NO SIGNS OF ACUTE DISTRESS NOTED. LIBRARY CATALOGING TECHNICIAN IN PLACE. SAFETY MEASURES IN PLACE.
--- NOTE | 2020-09-10 08:30 | NUR ---
OGT CLOGGED. REPLACED WITH NEW OGT. AWAITING CXR FOR PLACEMENT CONFIRMATION
[2020-09-10] MEDS: DEXAMETHASONE 4 MG/ML VIAL IVP SCH (09:20)
[2020-09-10] MEDS: BENZTROPINE 1 MG TAB PO SCH ×2 (09:21→20:35)
[2020-09-10] MEDS: PANTOPRAZOLE 40 MG INJ VIAL IVP SCH (09:21)
[2020-09-10] MEDS: INVOKANA 300 MG PO SCH (09:21)
[2020-09-10] MEDS: LACTULOSE 20 GM/30 ML UDC PO SCH ×2 (09:21→20:34)
[2020-09-10] MEDS: ATORVASTATIN 20 MG TAB PO SCH (09:21)
[2020-09-10] MEDS: DULoxetine 30 MG CAPDR PO SCH ×2 (09:21→20:34)
[2020-09-10] MEDS: QUEtiapine FUMARATE 25 MG TAB PO SCH (09:21)
--- NOTE | 2020-09-10 09:30 | NUR ---
PT SAT 100% POST SUPINATION. TITRATED/REDUCED PEEP TO +8 AND FIO2 45%. PT SAT STABLE AT 98%. WILL CONTINUE TO MONITOR.
--- NOTE | 2020-09-10 10:30 | NUR ---
OGT PLACEMENT CONFIRMED VIA CXR. TUBE FEEDING RESUMED
[2020-09-10 11:28] LABS: PROTHROMBIN TIME 9.2 secs (10.8-13.4)
--- NOTE | 2020-09-10 12:15 | NUR ---
PT SUPINE IN BED, FLACC 0, NO SOB, NO APPARENT DISTRESS
[2020-09-10] MEDS: NOREPINEPHRINE 8 MG in DEXTROSE 5% 250 ML IV PRN (12:30)
[2020-09-10] MEDS: fentaNYL citrate 1 MG in NACL 0.9% 80 ML IV PRN ×2 (12:46→21:06)
[2020-09-10] MEDS: hePARIN / DEXT 5% PREMIX 250 ML IV SCH (12:48)
--- NOTE | 2020-09-10 14:00 | NUR ---
PT PLACED PRONE WITH RT HELP. BED PLACED REVERSE TRENDELENBURG. PT TOLERATED WELL, NO SIGNS OF ACUTE DISTRESS NOTED. MILKING MACHINE OPERATOR IN PLACE. SAFETY MEASURES IN PLACE.
--- NOTE | 2020-09-10 16:30 | NUR ---
PT PRONE IN BED. NO S/S OF DISTRESS, RESPIRATIONS ARE EVEN AND UNLABORED
--- NOTE | 2020-09-10 18:30 | NUR ---
PT PRONED IN BED. NO APPARENT DISTRESS, VSS, FLACC 0
--- NOTE | 2020-09-10 19:21 | NUR ---
RECEIVED REPORT FROM AM SHIFT. PT SEEN AND ASSESSED. FOUND PT IN PRONE POSITION. PT IS INTUBATED WITH ETT SIZE 7.5 AND SECURED WITH ANCHOR-FAST @ 25 cm @ THE TEETH. PT IS ON VENT SETTINGS: AC/PC RR18 PIP 28, PEEP 8, 40% WITH SPO2 OF 97%. . VENT PLUGGED IN RED OUTLET. ALARMS SET AND AUDIBLE TO ENVIRONMENT. AUSCULTATION REVEALS RALES BILATERAL BREATH SOUNDS. SUCTIONED SMALL AMOUNT OF YELLOW THICK SECRETIONS FROM ETT. PT IS IN NO APPARENT RESPIRATORY DISTRESS AT THIS TIME. SCHEDULE HHN TX GIVEN ORDERED AND PT TOLERATED TX WELL WITH NO ADVERSE REACTION. WILL CONTINUE TO MONITOR PT. REPOSITIONED PT'S HEAD AND ARMS. PT TOLERATED PROCEDURE WELL. SPO2 98%. RN AT BEDSIDE WILL CONTINUE TO MONITOR PT.
[2020-09-10] MEDS: LATUDA PO SCH ×2 (21:00→23:50)
[2020-09-10] MEDS: [UNRECOGNIZED DRUG - OTHER] PO SCH ×2 (21:00→23:50)
[2020-09-10 21:29] LABS: APPEARANCE,URINE CLOUDY (CLEAR); BILIRUBIN,URINE NEGATIVE (NEGATIVE); BLOOD, URINE 2+ (NEGATIVE); COLOR,URINE YELLOW (YELLOW); LEUKOCYTE ESTERASE ,URINE NEGATIVE (NEGATIVE); NITRITE, URINE NEGATIVE (NEGATIVE); UGLUCOSE 3+ (NEGATIVE)
[2020-09-10 21:46] LABS: WBC,URINE 0-5 /HPF (0-5)
[2020-09-10 21:47] LABS: YEAST,URINE Many /HPF (None Seen)
[2020-09-10 21:48] LABS: URIC ACID CRYSTALS,URINE 30-50 /HPF (None Seen)
[2020-09-10] MEDS: LORazepam 2 MG/ML VIAL IM/IVP PRN (22:16)
[2020-09-10] MEDS: MIDAZOLAM MDV 50 MG in NACL 0.9% 40 ML IV PRN (22:24)
[2020-09-11] VITALS (105 sets, daily range): BP systolic 96–158; BP diastolic 45–78
[2020-09-11] MEDS: ALBUTEROL SULFATE/IPRATROPIU 3 ML SOL IH SCH ×3 (01:49→19:00)
[2020-09-11] MEDS: PROPOFOL 1000 MG/100 ML PREMIX 100 ML IV PRN ×3 (02:36→18:57)
[2020-09-11] MEDS: fentaNYL citrate 1 MG in NACL 0.9% 80 ML IV PRN ×4 (02:49→21:00)
[2020-09-11] MEDS: hePARIN / DEXT 5% PREMIX 250 ML IV SCH ×2 (05:37→21:02)
[2020-09-11] MEDS: PIPERACILLIN/TAZOBACTAM 2.25 GM in DEXTROSE 5% 50 ML IV SCH ×3 (05:41→18:58)
[2020-09-11] MEDS: DEXT 5% / NACL 0.45% 1,000 ML IV SCH (05:42)
--- NOTE | 2020-09-11 06:03 | NUR ---
PLACED PT IN IN SUPINE. PT TOLERATED PROCEDURE WELL. PT IS IN NO RESPIRATORY DISTRESS AT THIS TIME. SUCTIONED SMALL YELLOW THICK SECRETIONS. AIRWAY IS PATENT. RN AT BEDSIDE. WILL CONTINUE TO MONITOR PT.
[2020-09-11 06:09] LABS: LD1 FRACTION 10 % (17-32); LD2 FRACTION 35 % (25-40); LD3 FRACTION 27 % (17-27); LD4 FRACTION 17 % (5-13); LD5 FRACTION 11 % (4-20)
[2020-09-11 06:10] LABS: BASOPHILS % (AUTO) 0.2 % (0.0-2.0); EOSINOPHILS # (AUTO) 0.1 K/uL (0-0.4); EOSINOPHILS % (AUTO) 0.4 % (0.0-4.0); HEMATOCRIT 29.7 % (36-52); HEMOGLOBIN 9.4 g/dL (12.0-18.0); LYMPHOCYTES % (AUTO) 6.4 % (20.5-51.1); MEAN CORPUSCULAR HEMOGLOBIN 25 pg (27-31); MEAN CORPUSCULAR HGB CONC 32 g/dL (33-37); MEAN CORPUSCULAR VOLUME 77.7 fL (80-94); MONOCYTES # (AUTO) 0.5 K/uL (0.8-1.0); MONOCYTES % (AUTO) 3.2 % (1.7-9.3); NEUTROPHILS # (AUTO) 13.9 K/uL (1.8-7.7); NEUTROPHILS % (AUTO) 89.8 % (42.2-75.2); PLATELET COUNT (AUTO) 252 K/uL (140-450); RED BLOOD CELL COUNT(AUTO) 3.82 MIL/uL (4.20-6.10); RED CELL DISTRIBUTION WIDTH 16.5 % (11.6-13.7); WHITE BLOOD COUNT (AUTO) 15.4 K/uL (4.8-10.8)
--- NOTE | 2020-09-11 07:15 | NUR ---
RECEIVED HANDOFF FROM SEMICONDUCTOR PACKAGES LEAK TESTER RN. PT IS RASS -2. PT IS ON ETT TO VENT ACPC WITH 40% FIO2, PEEP 8, R 18. PT IS ON OG TUBE FEED WITH VITAL RUNNING AT 75 ML/HR WITH FWF 200 ML. PT IS SR ON THE MONITOR AT THIS TIME. FOR ACCESS PT HAS ROLANDA MIDLINE. PROPOFOL IS RUNNING AT 25 MCG/KG/MIN, HEPARIN IS RUNNING AT 1700 UNITS/HR, LEVOPHED IS RUNNING AT 1 MCG/MIN, FENTANYL IS RUNNING AT 2.5 MCG/KG/HR, AND VERSED AT 6 MG/HR. D5 1/2 NS IS RUNNING AT 75 ML/HR. PT HAS FITZGERALD CATHETER IN PLACE. PT IS SUPINE AT THIS TIME. HOB 30 DEG, WITH BED IN LOCKED POSITION. WILL CONTINUE TO MONITOR.
--- NOTE | 2020-09-11 07:26 | NUR ---
RECEIVED CALL FROM PHARMACY. APTT 52.8 AT THIS TIME. NO CHANGE IN HEPARIN DRIP PER PROTOCOL AT THIS TIME.
[2020-09-11] MEDS: BLOOD GLUCOSE MONITORING 1 DEV DEV FS SCH ×4 (07:30→21:00)
--- NOTE | 2020-09-11 08:30 | NUR ---
BS 170, 2 UNITS OF INSULIN FOR COVERAGE ADMINISTERED PER SLIDING SCALE.
[2020-09-11 08:38] LABS: MAGNESIUM 3.1 mg/dL (1.8-2.4); PHOSPHORUS 2.6 mg/dL (2.5-4.9)
[2020-09-11] MEDS: BENZTROPINE 1 MG TAB PO SCH ×2 (09:00→21:03)
[2020-09-11] MEDS: QUEtiapine FUMARATE 25 MG TAB PO SCH (09:00)
[2020-09-11] MEDS: PANTOPRAZOLE 40 MG INJ VIAL IVP SCH (09:00)
[2020-09-11] MEDS: INVOKANA 300 MG PO SCH (09:00)
[2020-09-11] MEDS: INSULIN LISPRO SLIDING SCALE 100 UNITS/ML VIAL SUBQ PRN ×4 (09:00→22:54)
[2020-09-11] MEDS: DEXAMETHASONE 4 MG/ML VIAL IVP SCH (09:00)
[2020-09-11] MEDS: ATORVASTATIN 20 MG TAB PO SCH (09:00)
[2020-09-11] MEDS: LACTULOSE 20 GM/30 ML UDC PO SCH ×2 (09:00→21:03)
[2020-09-11] MEDS: DULoxetine 30 MG CAPDR PO SCH ×2 (09:00→21:03)
--- NOTE | 2020-09-11 10:00 | NUR ---
MEDICATIONS ADMINISTERED PER ORDER. VAP ORAL CARE PROVIDED. PT REPOSITIONED.
[2020-09-11] MEDS: MIDAZOLAM MDV 50 MG in NACL 0.9% 40 ML IV PRN (10:19)
[2020-09-11 10:43] LABS: ANION GAP 13.9 (8-16); CARBON DIOXIDE 25.7 mmol/L (21-32); CREATININE 1.1 mg/dL (0.6-1.3); POTASSIUM 3.6 mmol/L (3.5-5.1)
--- NOTE | 2020-09-11 12:00 | NUR ---
BS 233, 4 UNITS OF INSULIN FOR COVERAGE ADMINISTERED PER SLIDING SCALE.
--- NOTE | 2020-09-11 13:00 | NUR ---
MEDICATIONS ADMINISTERED PER ORDER. PT REPOSITIONED. VAP ORAL CARE PROVIDED. WILL CONTINUE TO MONITOR.
--- NOTE | 2020-09-11 15:00 | NUR ---
BS 258, 6 UNITS OF INSULIN FOR COVERAGE ADMINISTERED PER SLIDING SCALE. Addendum: 09/11/20 at 1938 by Tara Avery RN RN *SUPPOSED TO BE AT 1700
[2020-09-11] MEDS ORDERED: MIDAZOLAM MDV 100 MG in NACL 0.9% 80 ML IV PRN (15:05)
--- NOTE | 2020-09-11 15:08 | NUR ---
PTT 39.1. PER PROTOCOL, GIVEN 2500 UNITS HEPARIN BOLUS AND INCREASED RAT 150 UN TO 1850 UN/HR.
--- NOTE | 2020-09-11 15:48 | NUR ---
09/11/20 RD FOLLOW UP COMPLETED PLEASE REFER TO NUTRITION ASSESSMENT UNDER CARE ACTIVITY FOR ESTIMATED NUTRITIONAL NEEDS. 1. CONTINUE VITAL AF 1.2 @ 75 ML/HR X 6 HOURS DURING SUPINE POSITION, WITH PROSOURCE X4 PER DAY -THIS WILL PROVIDE 450 ML OF VOLUME, 780 KCAL AND 78 GM OF PROTEIN PER DAY. THIS MEETS 42% OF ESTIMATED KCAL NEEDS AND 89% OF ESTIMATED PROTEIN NEEDS. 2. CONTINUE 200 ML Q12H OF FREE WATER FLUSH (TOTAL OF 400 ML/DAY) 3. PROPOFOL WILL PROVIDE ADDITIONAL CALORIES. 1.1 KCAL/ML 4. RD TO FOLLOW-UP 2-3 DAYS, HIGH RISK ALEIDA BENTLEY RD
--- NOTE | 2020-09-11 17:00 | NUR ---
BS 258, 6 UNITS OF INSULIN FOR COVERAGE ADMINISTERED PER SLIDING SCALE.
--- NOTE | 2020-09-11 18:00 | NUR ---
PT HAD OUTPUT OF 1300 ML OF CLEAR YELLOW URINE.
--- NOTE | 2020-09-11 18:04 | NUR ---
RN, EMT,SALAD BAR CLERK, AT BEDSIDE, PRONE PT TO RT, ET TUBE SECURE AND INTACT.
--- NOTE | 2020-09-11 18:05 | NUR ---
PT NOW IN PRONE POSITION, RT AT BEDSIDE DURING REPOSITIONING. PT SATTING 96% AT THIS TIME, NO SIGNS OF RESPIRATORY DISTRESS.
--- NOTE | 2020-09-11 19:15 | NUR ---
HANDOFF GIVEN TO PROJECT COORDINATOR RN RN FOR CONTINUITY OF CARE.
--- NOTE | 2020-09-11 19:20 | NUR ---
RECEIVED REPORT FROM JENNIFER RN, AT BEDSIDE, FOR CONTINUITY OF CARE. SEDATED TO RASS -3, PER MD ORDERS. ETT TO VENT WITH SETTINGS FOLLOWS: ACPC 100%, 18, 8. OGT IN PLACE WITH FEEDING ON HOLD DUE TO PRONE POSITIONING. SR TO SB ON MONITOR WITH AUDIBLE S1, S2 NOTED UPON AUSCULTATION. LUNGS DIMINISHED THROUGHOUT. ROLANDA MIDLINE IN PLACE INFUSING PROPOFOL AT 25 MCG/KG/MIN (11.83 ML/H), HEPARIN @ 1850 UNITS/HR, FENTANYL AT 2.5 MCG/KG/HR (19.71 ML/H), VERSED AT 6 MG/HR, D5 1/2 NS AT 75 ML/HR. FITZGERALD IN PLACE DRAINING CLEAR, YELLOW-URINE TO GRAVITY. BED LOW AND LOCKED. SKIN WARM, DRY, AND INTACT. WILL CONTINUE TO MONITOR.
--- NOTE | 2020-09-11 19:47 | NUR ---
RECEIVED REPORT FROM AM SHIFT. PT SEEN AND ASSESSED. FOUND PT IN PRONE POSITION. PT IS INTUBATED WITH ETT SIZE 7.5 AND SECURED WITH ANCHOR-FAST AT 25 cm AT TEETH. PT IS ON VENT SETTINGS: AC/PC RR18 PIP 28, PEEP 8, FIO2 55 WITH SPO2 OF 87%. INCREASED FIO2 TO GET SAT AT 92%. VENT PLUGGED IN RED OUTLET, AMBU BAG AT BEDSIDE. ALARMS SET AND AUDIBLE. AUSCULTATION REVEALS RALES UPPER LOBE AND DIMINISHED BREATH SOUNDS AT LL. PT IS IN NO APPARENT RESPIRATORY DISTRESS AT THIS TIME. WILL CONTINUE TO MONITOR PT.
--- NOTE | 2020-09-11 21:00 | NUR ---
RBS 206. 4 UNITS LISPRO ADMINISTERED ORDERED. WILL CONT TO MONITOR
[2020-09-11] MEDS: [UNRECOGNIZED DRUG - OTHER] PO SCH (21:02)
[2020-09-11] MEDS: LATUDA PO SCH (21:02)
[2020-09-12] VITALS (104 sets, daily range): BP systolic 99–161; BP diastolic 50–114
[2020-09-12] MEDS: PROPOFOL 1000 MG/100 ML PREMIX 100 ML IV PRN ×3 (00:09→18:01)
[2020-09-12] MEDS: PIPERACILLIN/TAZOBACTAM 2.25 GM in DEXTROSE 5% 50 ML IV SCH ×4 (00:27→18:03)
[2020-09-12] MEDS: DEXT 5% / NACL 0.45% 1,000 ML IV SCH ×2 (00:29→13:41)
[2020-09-12] MEDS: ALBUTEROL SULFATE/IPRATROPIU 3 ML SOL IH SCH ×3 (01:00→14:01)
[2020-09-12] MEDS ORDERED: fentaNYL citrate 0.05 MG/ML VIAL ONE (02:02)
[2020-09-12] MEDS: fentaNYL citrate 1 MG in NACL 0.9% 80 ML IV PRN ×3 (02:12→13:05)
--- NOTE | 2020-09-12 04:00 | NUR ---
BED BATH PROVIDED WITH CATH CARE. FLACC 0. ALL SAFETY PRECAUTIONS IN PLACE WITH BED LOW AND LOCKED. WILL CONT TO MONITOR.
[2020-09-12 05:55] LABS: BASOPHILS % (AUTO) 0.2 % (0.0-2.0); EOSINOPHILS # (AUTO) 0.1 K/uL (0-0.4); EOSINOPHILS % (AUTO) 0.9 % (0.0-4.0); HEMATOCRIT 28.2 % (36-52); HEMOGLOBIN 9.1 g/dL (12.0-18.0); LYMPHOCYTES % (AUTO) 9.2 % (20.5-51.1); MEAN CORPUSCULAR HEMOGLOBIN 25 pg (27-31); MEAN CORPUSCULAR HGB CONC 32 g/dL (33-37); MEAN CORPUSCULAR VOLUME 77.2 fL (80-94); MONOCYTES # (AUTO) 0.7 K/uL (0.8-1.0); MONOCYTES % (AUTO) 6.4 % (1.7-9.3); NEUTROPHILS # (AUTO) 9.1 K/uL (1.8-7.7); NEUTROPHILS % (AUTO) 83.3 % (42.2-75.2); PLATELET COUNT (AUTO) 208 K/uL (140-450); RED BLOOD CELL COUNT(AUTO) 3.66 MIL/uL (4.20-6.10)
[2020-09-12 06:15] LABS: MAGNESIUM 2.6 mg/dL (1.8-2.4); PHOSPHORUS 3.1 mg/dL (2.5-4.9)
[2020-09-12 06:19] LABS: ANION GAP 9.8 (8-16); CARBON DIOXIDE 28.5 mmol/L (21-32); CREATININE 0.9 mg/dL (0.6-1.3); POTASSIUM 4.3 mmol/L (3.5-5.1)
[2020-09-12] MEDS: BLOOD GLUCOSE MONITORING 1 DEV DEV FS SCH ×4 (07:06→21:39)
--- NOTE | 2020-09-12 07:15 | NUR ---
RECEIVED HANDOFF FROM GREEN BUILDING ENGINEER RN. PT IS RASS -3. PT IS ON ETT TO VENT ON ACPC MDOE WITH 60% FIO2, R 18, PEEP 9. PT IS SR TO SB ON THE MONITOR. FOR DIET, PT HAS OG TUBE IN PLACE, WITH VITAL A 75 ML/HR FWF 200 ML Q 12 HRS, BUT FEEDING IS HELD DUE TO PT BEING IN PRONE POSITION. PT HAS ROLANDA MIDLINE IN PLACE WITH HEPARIN RUNNING AT 1850 UN/HR, PROPOFOL AT 25 MCG/KG/MIN, FENTANYL AT 2.5 MCG/KG/HR, VERSED AT 6 MG/HR, AND D5 1/2 NS AT 75 ML/HR. PT HAS FITZGERALD CATHETER IN PLACE. PT IN PRONE POSITION AT THIS TIME. WILL CONTINUE TO MONITOR.
--- NOTE | 2020-09-12 07:15 | NUR ---
REPORT GIVEN TO DAYSHIFT NURSE, AT BEDSIDE, FOR CONTINUITY OF CARE.
--- NOTE | 2020-09-12 08:10 | NUR ---
RT HILTON AT BEDSIDE. PER RT, PT WAS DESATTING TO LOW 80s. RT INCREASED FIO2 TO 90%.
[2020-09-12] MEDS: LACTULOSE 20 GM/30 ML UDC PO SCH ×2 (08:25→21:09)
[2020-09-12] MEDS: ATORVASTATIN 20 MG TAB PO SCH (08:26)
[2020-09-12] MEDS: PANTOPRAZOLE 40 MG INJ VIAL IVP SCH (08:26)
[2020-09-12] MEDS: BENZTROPINE 1 MG TAB PO SCH ×2 (08:26→21:15)
[2020-09-12] MEDS: QUEtiapine FUMARATE 25 MG TAB PO SCH (08:26)
[2020-09-12] MEDS: DEXAMETHASONE 4 MG/ML VIAL IVP SCH (08:26)
[2020-09-12] MEDS: LORazepam 2 MG/ML VIAL IM/IVP PRN ×2 (08:28→15:21)
[2020-09-12] MEDS: INVOKANA 300 MG PO SCH (08:29)
--- NOTE | 2020-09-12 09:09 | NUR ---
MEDICATIONS ADMINISTERED PER ORDER, PRN ATIVAN ADMINISTERED DUE TO PT AGITATION, ANXIOUSNESS. SUCTIONED LARGE AMOUNT OF CREAMY ORAL SECRETIONS. 30 ML RESIDUAL FROM OG TUBE. TEMPERATURE 98.0 TEMPORALLY. VAP ORAL CARE AND FITZGERALD HELD AT THIS TIME UNTIL PT IS SUPINE AGAIN. CHG BATH PROVIDED.
--- NOTE | 2020-09-12 09:25 | NUR ---
PT. CHANGE OF CONDITION WITH LOW MARIA E SCALE AT RISK, CONTINUE TO FOLLOW PRESSURE ULCER PREVENTION INTERVENTIONS. -TURN AND REPOSITION PATIENT Q 2H -ASSESS AND MONITOR SKIN CONDITION DURING POSITION CHANGE -OFFLOAD BILATERAL HEELS BY PLACING PILLOWS UNDER CALVES AT ALL TIMES, UNLESS OTHERWISE CONTRAINDICATED -PRESSURE REDISTRIBUTION BY PLACING PILLOWS AND OFFLOADING SACRALCOCCYX -KEEP SKIN CLEAN AND DRY AT ALL TIMES.
[2020-09-12] MEDS: MIDAZOLAM MDV 100 MG in NACL 0.9% 80 ML IV PRN (09:34)
--- NOTE | 2020-09-12 09:47 | NUR ---
PTT IS 56.5. PER PROTOCOL, PTT CAN NOW BE DONE Q24HR. NO CHANGES AT THIS TIME.
[2020-09-12] MEDS: hePARIN / DEXT 5% PREMIX 250 ML IV SCH (11:42)
--- NOTE | 2020-09-12 12:30 | NUR ---
BS 157, 2 UNITS OF INSULIN ADMINISTERED FOR COVERAGE. MEDICATIONS ADMINISTERED PER ORDER. PT STILL IN PRONE POSITION, SATTING 99% AT THIS TIME. TEMPERATURE 97.9 TEMPORALLY. WILL CONTINUE TO MONITOR.
[2020-09-12] MEDS: INSULIN LISPRO SLIDING SCALE 100 UNITS/ML VIAL SUBQ PRN ×2 (13:06→18:42)
--- NOTE | 2020-09-12 14:12 | NUR ---
RT HILTON AT BEDSIDE. PT NOW AT 70% FIO2, SATTING 94%. WILL CONTINUE TO MONITOR.
--- NOTE | 2020-09-12 15:30 | NUR ---
BS 177, 2 UNITS OF INSULIN ADMINISTERED.
--- NOTE | 2020-09-12 16:00 | NUR ---
PT NOW SUPINE WITH HELP OF RT. OG TUBE BECAME DISLODGED DURING THE PROCESS, SO IT WAS REINSERTED, AUSCULTATED BUT AWAITING CHEST XRAY CONFIRMATION. 2 WOUNDS FOUND, NON-BLANCHABLE REDNESS ON CHIN 3X5, AND SKIN TEAR ON CHEEK 1X3. PICTURES TAKEN. WILL CONTINUE TO MONITOR.
--- NOTE | 2020-09-12 18:00 | NUR ---
MEDICATIONS ADMINISTERED PER ORDER. OUTPUT FROM URINARY CATHETER IS 1100 ML OF URINE.
[2020-09-12] MEDS: fentaNYL citrate 2.5 MG in NACL 0.9% 200 ML IV PRN (18:51)
--- NOTE | 2020-09-12 19:00 | NUR ---
HANDOFF GIVEN TO SUPERVISOR HOT STRIP MILL RN FOR CONTINUITY OF CARE.
--- NOTE | 2020-09-12 19:38 | NUR ---
RECEIVED REPORT FROM AM SHIFT. PT SEEN AND ASSESSED. PT IS INTUBATED WITH ETT SIZE 7.5 AND SECURED WITH ANCHOR-FAST @ 25cm. PT IS ON VENT SETTINGS: AC/PC RR 18, PEAK P 28, PEEP 5, FIO2 70%. VENT PLUGGED IN RED OUTLET, AMBU BAG AT THE BEDSIDE. ALARMS SET AND AUDIBLE, AUSCULTATION REVEALS RALES BILATERAL BREATH SOUNDS. WILL CONTINUE TO MONITOR PT.
[2020-09-12] MEDS: [UNRECOGNIZED DRUG - OTHER] PO SCH (21:15)
[2020-09-12] MEDS: LATUDA PO SCH (21:15)
[2020-09-12] MEDS ORDERED: ATROPINE 1 MG/10 ML SYR IVP ONE (23:34)
[2020-09-13] VITALS (99 sets, daily range): BP systolic 90–140; BP diastolic 48–79
[2020-09-13] MEDS: PROPOFOL 1000 MG/100 ML PREMIX 100 ML IV PRN ×4 (00:11→21:37)
[2020-09-13] MEDS: PIPERACILLIN/TAZOBACTAM 2.25 GM in DEXTROSE 5% 50 ML IV SCH ×4 (00:14→18:04)
[2020-09-13] MEDS: hePARIN / DEXT 5% PREMIX 250 ML IV SCH ×2 (01:44→15:51)
[2020-09-13] MEDS: DEXT 5% / NACL 0.45% 1,000 ML IV SCH ×2 (04:50→18:05)
[2020-09-13] MEDS: fentaNYL citrate 2.5 MG in NACL 0.9% 200 ML IV PRN ×2 (06:11→19:01)
[2020-09-13 07:20] LABS: BASOPHILS % (AUTO) 0.1 % (0.0-2.0); EOSINOPHILS # (AUTO) 0.1 K/uL (0-0.4); EOSINOPHILS % (AUTO) 0.4 % (0.0-4.0); HEMATOCRIT 29.5 % (36-52); HEMOGLOBIN 9.2 g/dL (12.0-18.0); LYMPHOCYTES # (AUTO) 0.6 K/uL (2.0-11.5); LYMPHOCYTES % (AUTO) 4.5 % (20.5-51.1); MEAN CORPUSCULAR HEMOGLOBIN 24 pg (27-31); MEAN CORPUSCULAR HGB CONC 31 g/dL (33-37); MONOCYTES # (AUTO) 0.8 K/uL (0.8-1.0); MONOCYTES % (AUTO) 6.2 % (1.7-9.3); NEUTROPHILS % (AUTO) 88.8 % (42.2-75.2); PLATELET COUNT (AUTO) 248 K/uL (140-450); RED BLOOD CELL COUNT(AUTO) 3.78 MIL/uL (4.20-6.10); RED CELL DISTRIBUTION WIDTH 15.8 % (11.6-13.7); WHITE BLOOD COUNT (AUTO) 13.5 K/uL (4.8-10.8)
--- NOTE | 2020-09-13 07:25 | NUR ---
RECEIVED BEDSIDE REPORT FROM DIAMOND SELECTOR NURSE LAURA FOR CONTINUITY OF CARE. PATIENT IS LYING ON PRONE POSITION, OPTIFOAM ON KNEE BILATERALLY FOR SKIN PROTECTION, RESPIRATION EVEN AND UNLABORED ON ETT TO VENT, SETTING: FIO2 70%, RATE 18, PEEP 8, LUNGS SOUND DIMINISHED ON AUSCULTATION. FLACC 0. DRY WEIGHT 78.9 KG, RASS -3. NO SIGNS OF ACUTE DISTRESS NOTED. IV ON ROLANDA MIDLINE, CLEAN AND INTACT, RUNNING HEPARIN DRIP AT 1,850 UNIT/HR, D5 0.45NS AT 100 ML/HR, FENTANYL AT 2.498 MCG/KG/HR, PROPOFOL 25 MCG/MIN, VERSED 6 MG/HR. ABRASION ON CHIN AREA NOTED, COVERED WITH OPTIFOAM, OTHERWISE, SKIN WARM AND DRY. OGT IN PLACE, NOT RUNNING AT THIS TIME. ABDOMEN SOFT AND ROUND. PATIENT IS INCONTINENT AND FITZGERALD IN PLACE, DRAINING WITH GRAVITY. BILATERAL SOFT WRIST RESTRAINTS IN PLACE, NO SIGNS OF INJURY NOTED. ENHANCED DROPLET PRECAUTION IN PLACE. SOCCER COMMENTATOR IN PLACE. SAFETY MEASURES IN PLACE. BED IN LOW POSITION, HOB ELEVATED 35 DEGREE.
[2020-09-13] MEDS: BLOOD GLUCOSE MONITORING 1 DEV DEV FS SCH ×4 (07:30→20:00)
[2020-09-13 07:38] LABS: ANION GAP 9.7 (8-16); CARBON DIOXIDE 27.3 mmol/L (21-32); CREATININE 0.9 mg/dL (0.6-1.3)
[2020-09-13 07:41] LABS: MAGNESIUM 2.4 mg/dL (1.8-2.4); PHOSPHORUS 3.4 mg/dL (2.5-4.9)
[2020-09-13] MEDS: ALBUTEROL SULFATE/IPRATROPIU 3 ML SOL IH SCH ×3 (07:47→19:40)
--- NOTE | 2020-09-13 07:47 | NUR ---
RECEIVED ON A Acoustic TechnologiesSCAPE R860 VENTILATOR PLUGGED INOT RED OUTLET TOLERATING WELL WITHOUT ADVERSE REACTIOSN NOTED TO AN ENDOTRACHEAL TUBE #7.5 SECURED AT 25cm TEETH/GUM LINE WITH AN ANCHOR FAST CUFF PRESSURE CHECKED NOTED AMBU BAG AT BEDSIDE PRONE POSITION SEDATED RESTING COMFORTABLY NO EVIDENCE OF PULMONARY DISTRESS NOTED GOOD CHEST RISE ENDOTRACHEAL SUCTION FOR LARGE THIN YELLOW SECRETIONS AIRWAY PATENT SATURATION 94% ON FIO2 OF 70% POST HHN THERAPY TITRATED FIO2 TO 65% JANETH/RN NOTIFIED
--- NOTE | 2020-09-13 08:51 | NUR ---
RECEIVED PTT FROM LAB 54.9, PER RX PROTOCOL, NO CHANGE ON DRIPPING RATE, CONTINUE INFUSING AT 1,850 UNIT/HR.
[2020-09-13] MEDS: DEXAMETHASONE 4 MG/ML VIAL IVP SCH (09:50)
[2020-09-13] MEDS: PANTOPRAZOLE 40 MG INJ VIAL IVP SCH (09:50)
[2020-09-13] MEDS: LACTULOSE 20 GM/30 ML UDC PO SCH ×2 (09:50→20:00)
[2020-09-13] MEDS: QUEtiapine FUMARATE 25 MG TAB PO SCH (09:50)
[2020-09-13] MEDS: ATORVASTATIN 20 MG TAB PO SCH (09:51)
[2020-09-13] MEDS: INVOKANA 300 MG PO SCH (09:51)
[2020-09-13] MEDS: BENZTROPINE 1 MG TAB PO SCH ×2 (09:51→20:27)
--- NOTE | 2020-09-13 09:55 | NUR ---
CHECKED BLOOD GLUCOSE AND RECEIVED 127, NO COVERAGE NEEDED. ADMINISTERED SCHEDULED MEDS PER MD ORDER, FLUSH BEFORE AND AFTER MEDS. RELEASED SOFT WRIST RESTRAINTS, AND PREFORMED ROM, NO SIGNS O INJURY, CAPILLARY REFILLED < 3 SECONDS. REPOSITIONED PATIENT'S ARMS, AND PROVIDED CHG BATH. PATIENT TOLERATED FAIR. RESPIRATION EVEN AND UNLABORED ON FIO2 65%, SPO2 AT 95%, FLACC 0. NO SIGNS OF ACUTE DISTRESS NOTED. PAPER REEL OPERATOR IN PLACE. SAFETY MEASURES IN PLACE.
--- NOTE | 2020-09-13 09:58 | NUR ---
STABLE PRONE POSITION EQUAL CHEST RISE GOOD AERATION THROUGHOUT BILATERAL LUNG SOTO AIRWAY PATENT REVIEWED BLOOD PRESSURE NOTED PER ARDS PROTOCOL INCREASED PEEP [id number] JANETH/RN NOTIFIED
--- NOTE | 2020-09-13 11:44 | NUR ---
STABLE SEDATED REMAINS IN PRONE POSITION WITH HEAD TURNED TO LEFT SIDE GOOD CHEST RISE NO ENDTRACHEAL SUCTION AT THIS TIME AIRWAY PATENT REIMBURSEMENT COORDINATOR TO MONITOR
--- NOTE | 2020-09-13 11:50 | NUR ---
ABG DRAWN WITH PATIENT IN PRONE POSITION
--- NOTE | 2020-09-13 11:57 | NUR ---
BLOOD GLUCOSE CHECKED AND RECEIVED 158, NO COVERAGE ADMINISTER DUE TO PATIENT IS NPO NOT ON FEEDING WHILE PRONE. ADMINISTERED SCHEDULED ZOSYN PER MD ORDER, REPOSITIONED PATIENT ARMS AND HEAD WITH ASSIST, RELEASED SOFT WRIST RESTRAINTS, AND PREFORMED ROM, NO SIGNS OF INJURY. QUARANTINE INSPECTOR IN PLACE. SAFETY MEASURES IN PLACE.
--- NOTE | 2020-09-13 12:10 | NUR ---
CALLED [facility] FOR GIFTED TEACHER DREDGE OPERATOR SUPERVISOR [phone] TO REVIEW ABG SAMPLE REPORT TU, EXCHANGE TO PAGE DR. CATHERINE FAY GAVE RETURN NUMBER [phone]
--- NOTE | 2020-09-13 12:11 | NUR ---
CALL BACK FROM DR. CATHERINE FAY REVIEWED ABG SAMPLE REPORT STATES "THAT'S FINE" NO NEW ORDERS
--- NOTE | 2020-09-13 13:35 | NUR ---
SEDATED TOLERATING PRONE POSITION RESTING WELL WITHOUT RESPIRATORY DISTRESS NOTED GOOD CHEST RISE ENDOTRACHEAL SUCTION FOR MODERATE THIN YELLOW SECRETINS OROPHARYNGEAL SUCTION FOR COPIOUS HAZY TO BROWNISH THIN SECRETIONS AIRWAY PATENT I/E RATIO AT 1:3.1 CHANGE Tinsp TO 0.85 I/E RATIO NOW AT 1:2.8
--- NOTE | 2020-09-13 13:39 | NUR ---
DR FAY IS ASSESSING PATIENT AT BEDSIDE.
--- NOTE | 2020-09-13 13:47 | NUR ---
09/13/2020 FOLLOW UP COMPLETED PLEASE REFER TO NUTRITION PROGRESS NOTE UNDER CARE ACTIVITY FOR ESTIMATED NUTRITION NEEDS. RD RECOMMENDATIONS: 1. CONTINUE VITAL AF 1.2 @ 75 ML/HR X 8 HOURS DURING SUPINE POSITION, WITH PROSOURCE X4 PER DAY -THIS WILL PROVIDE 600 ML OF VOLUME, 960 KCAL AND 105 GM OF PROTEIN PER DAY. THIS MEETS 52% OF ESTIMATED KCAL NEEDS AND 100% OF ESTIMATED PROTEIN NEEDS. 2. CONTINUE 200 ML BID OF FREE WATER FLUSH (TOTAL OF 400 ML/DAY) 3. PROPOFOL WILL PROVIDE ADDITIONAL CALORIES. 1.1 KCAL/ML 4. RD TO FOLLOW-UP 2-3 DAYS, HIGH RISK DANI SIN, RD
--- NOTE | 2020-09-13 15:43 | NUR ---
SEDATED NO APPARENT DISTRESS NOTED GOOD CHEST RISE AND AERATION THROUGHOUT BILATERAL LUNG SOTO AIRWAY PATENT I/E RATIO 1:2.8 ON I/TIME OF 0.85 INCREASED TO 0.90 I/TIME NOW 1:2.7 SATURATION 98% ON FIO2 OF 98% DECREASED FIO2 TO 55% PER ARDS PROTOCOL DECREASED PEEP TO 8cmH2O JANETH/RN NOTIFIED
--- NOTE | 2020-09-13 15:48 | NUR ---
SATURATION 96% ON FIO2 OF 55% PEEP 8cmH2O
--- NOTE | 2020-09-13 15:54 | NUR ---
STARTED A NEW BAG OF HEPARIN DRIP, CONTINUE RUNNING AT 1,850 UNIT AND A NEW BOTTLE OF PROPOFOL, CONTINUE RUNNING AT 25 MCG/KG/MIN, CHANGED ALL TUBINGS.
--- NOTE | 2020-09-13 17:10 | NUR ---
WITH ASSIST FROM RT AND ANOTHER RN, SUPINE PATIENT, CHANGED ALL DIRTY, PROVIDED HYGIENE CARE, ORAL CARE, APPLIED HEART SHAPED OPTIFOAM ON SACRAL AREA FOR SKIN BREAK DOWN PROTECTION, APPLIED PURPLE HEEL PROTECTORS BILATERALLY, OFFLOADED PRESSURE WITH PILLOWS. STARTED NEW BOTTLE OF TUBE FEEDING VITAL AF 1.2 AT 75 ML/HR WITH WATER FLUSH 200 ML/Q12H, CHANGED TUBINGS. RELEASED SOFT WRIST RESTRAINTS, PERFORMED ROM, NO SIGNS OF INJURY, PATIENT TOLERATED FAIR. HARDBOARD GRINDER IN PLACE. SAFETY MEASURES IN PLACE. HOB ELEVATED 30 DEGREE, BED IN LOW POSITION, BED LOCKED.
--- NOTE | 2020-09-13 17:10 | NUR ---
PATIENT SUCCESSFULLY PLACED IN SUPINE PATIENT WITHOUT ANY COMPLICATIONS NOTED
--- NOTE | 2020-09-13 17:37 | NUR ---
4 UNITS OF HUMALOG GIVEN VIA SUBQ FOR BLOOD GLUCOSE 206.
--- NOTE | 2020-09-13 17:40 | NUR ---
STABLE NO DISTRESS NOTED ENDOTRACHEAL SUCTION FOR LARGE THIN YELLOW SECRETIONS AIRWAY PATENT
--- NOTE | 2020-09-13 18:06 | NUR ---
ADMINISTERED ZOSYN PER MD ORDER.
--- NOTE | 2020-09-13 19:16 | NUR ---
ENDORSED PATIENT TO TRIM AND BURR OPERATOR NURSES MARVIN FOR CONTINUITY OF CARE. PATIENT IS IN STABLE CONDITION. BICYCLE REPAIRMAN IN PLACE. SAFETY MEASURES IN PLACE.
--- NOTE | 2020-09-13 19:40 | NUR ---
RECEIVED PT FROM AM SHIFT ON VENTILATOR SETTING AC/PC FIO2 55,PIP 28, R 18 +8, IT0.9. NO RESPIRATORY DISTRESS NOTED. PT INTUBATED WITH ETT TUBE 7.5 SECURED @25cm TEETH WITH AN ANCHOR FAST CUFF PRESSURE CHECKED, AMBU BAG AT BEDSIDE. VENTILATOR PUGGED ON RED OUTLET. BREATH SOUND REVEALED COARSE BILATERALLY AND DIMINISHED @ THE BASE WITH GOOD CHEST RISE AND FALL NOTED, WILL CONTINUE TO MONITOR.
[2020-09-13] MEDS: [UNRECOGNIZED DRUG - OTHER] PO SCH (20:00)
[2020-09-13] MEDS: LATUDA PO SCH (20:00)
--- NOTE | 2020-09-13 20:00 | NUR ---
RECEIVED REPORT FROM DAY SHIFT RN. DRY WEIGHT 78.9 KG. PATIENT IS ETT TO VENT. RASS -3. A/C PC FIO2: 55%, RATE: 18, AND PEEP: 8. SR, S1S2 NOTED. ROLANDA MIDLINE. PATENT, NO INFILTRATION, FLEBITIS NOTED. RUNNING HEPARIN 1850 UNIT/HR (25,000 UNIT/250ML), PROPOFOL 24.98 MCG/KG/MIN (11.83ML/HR), FENTANYL 2.498 MCG/KG/HR (19.71 ML/HR), VERSED 6MG/HR (6ML/HR) AND D5 1/2 NS @ 40ML/HR. LUNG SOUNDS: COARSE BILATERAL UPPER LOBES AND DIMINISHED LOWER BILATERAL LOBES. BOWEL SOUNDS ACTIVE IN ALL 4 QUADRANTS, OG-TUBE TO FEED, RESIDUAL 55ML. RUNNING VITAL AF @ 75 ML/HR WITH FWF: 200 Q [address]. [address] IN PLACE, CLEAN DRY AND INTACT. BILATERAL WRIST RESTRAINTS, NO S/S OF INJURIES NOTED. DTI TO UNDER CHIN, AND RT CHEEK SKIN TEAR. SKIN OTHERWISE INTACT. SAFETY MEASURES IN PLACE, BED LOW AND LOCKED. SIDE RAILS UP. CALL LIGHT WITHIN REACH. WILL CONTINUE TO MONITOR.
[2020-09-13] MEDS: INSULIN LISPRO SLIDING SCALE 100 UNITS/ML VIAL SUBQ PRN (20:02)
[2020-09-13] MEDS: MIDAZOLAM MDV 100 MG in NACL 0.9% 80 ML IV PRN (21:35)
--- NOTE | 2020-09-13 22:00 | NUR ---
PATIENT IS STABLE, NO S/S OF DISTRESS NOTED. SAFETY MEASURES IN PLACE, WILL CONTINUE TO MONITOR.
[2020-09-14] VITALS (102 sets, daily range): BP systolic 84–147; BP diastolic 46–70
--- NOTE | 2020-09-14 | NUR ---
PT REMAINS STABLE, NO S/S OF DISTRESS. NO S/S OF INJURY NOTED FOR BILATERAL SOFT WRIST RESTRAINTS. BED LOW AND LOCKED, ROOM FREE OF CLUTTER, SIDE RAILS UP, HOB AT 30 DEGREES. WILL CONTINUE CURRENT PLAN OF CARE.
[2020-09-14] MEDS: ALBUTEROL SULFATE/IPRATROPIU 3 ML SOL IH SCH ×4 (01:56→19:20)
--- NOTE | 2020-09-14 02:00 | NUR ---
SAFETY MEASURES IN PLACE, NO SIGNS OR SYMPTOMS OF DISTRESS NOTED. WILL CONTINUE CURRENT PLAN OF CARE.
[2020-09-14] MEDS: hePARIN / DEXT 5% PREMIX 250 ML IV SCH ×2 (04:05→17:37)
--- NOTE | 2020-09-14 04:30 | NUR ---
MORNING CARE GIVEN, NEW LINEN AND BLANKETS. PATIENT'S TEMP CHECKED. PATIENT'S TEMP 100.4. TYLENOL GIVEN. REMOVED BLANKETS. WILL CONTINUE TO MONITOR.
[2020-09-14] MEDS: ACETAMINOPHEN 325 MG TAB PO PRN (04:37)
--- NOTE | 2020-09-14 05:00 | NUR ---
PATIENTS TEMP DECREASED TO 99.1, WILL CONTINUE TO MONITOR.
[2020-09-14] MEDS ORDERED: fentaNYL citrate 0.05 MG/ML VIAL ONE ×3 (05:37→05:44)
[2020-09-14] MEDS: PROPOFOL 1000 MG/100 ML PREMIX 100 ML IV PRN ×3 (05:47→20:24)
--- NOTE | 2020-09-14 05:50 | NUR ---
RT INCREASED FIO2 TO 85%, WILL CONTINUE TO MONITOR. OTHERWISE PT REMAINS STABLE.
--- NOTE | 2020-09-14 05:50 | NUR ---
INCREASED FIO2 TO 85% DUE TO PT DESATURATION AFTER CHANGED IN POSITION. WILL CONTINUE TO MONITOR
[2020-09-14] MEDS: PIPERACILLIN/TAZOBACTAM 2.25 GM in DEXTROSE 5% 50 ML IV SCH ×3 (05:55)
[2020-09-14] MEDS: MIDAZOLAM MDV 100 MG in NACL 0.9% 80 ML IV PRN (05:56)
[2020-09-14] MEDS: fentaNYL citrate 2.5 MG in NACL 0.9% 200 ML IV PRN ×2 (06:14→16:02)
--- NOTE | 2020-09-14 07:30 | NUR ---
RECEVIED WINDOW-SIDE REPORT FROM STRUCTURAL STEEL IRONWORKER NURSES KRISTIN AND DACIA. PT ON ENHANCED DROPLET PRECAUTIONS. RT AT BEDSIDE. PT SUPINE IN BED, HOB 35 DEGREES, LABORED BREATHING, ETT TO VENT: FIO2 100%, RATE 18, PEEP 10, SPO2 93%. RASS -3, UNABLE TO MAKE NEEDS KNOWN. RASH ON CHIN AND R CHEECK. ON BILATERAL WRIST RESTRAINS, NO SIGNS OF INJURIES NOTED. ROLANDA MIDLINE RUNNING: FENTANYL 3 MCG/KG/HR, PROPOFOL 30 MCG/KG/MIN, HEPARIN 1850 UNIT/HR, VERSED 6 MG/HR, D51/2NS 40 ML/HR. OG TUBE RUNNING VITAL AF 1.2 RUNNING AT 75 ML/HR. FITZGERALD IN PLACE DRAINING TO GRAVITY, CLEAR YELLOW URINE.
--- NOTE | 2020-09-14 07:30 | NUR ---
[facility] [employer] RCP CALLED TO BEDSIDE PATIENT PRESENTING WITH DECLINING SATURATION TO 84% INTELLIGENCE ENGINEER INCREASED FIO2 TO 100% AND PEEP TO [id number]
--- NOTE | 2020-09-14 07:35 | NUR ---
RECEIVED ON A EndPlay R860 VENTILATOR PLUGGED INTO RED OUTLET TO AN ENDOTRACHEAL TUBE #7.5 SECURED AT 25cm TEETH/GUM LINE WITH AN ANCHOR FAST CUFF PRESSURE CHECKED NOTED AMBU BAG AT BEDSIDE LOC SEDATED PATIENT PRESENTING WITH CHEST AND NECK RETRACTIONS I/TIME AT 0.90 WITH I/E AT 1:1.4 DECREASED I/TIME 0.75 TO MAINTAIN EXPIRATORY RATIO EQUAL/GREATER THAN 2.0 REVIEWED SYSTOLIC PRESSURE AT 103mmHg INCREASED PEEP TO 81doH0H (ARDS PROTOCOL 18-24) PEAK PRESSURE NOW AT +[id number] REVIEWED IBW (IDEAL BODY WEIGHT) 8ml/kg = 570mL EXPIRATORY Vt GREATER THAN 700ml DECREASED Tinsp TO [id number] PEAK PRESSURE NOW AT 70spO8L
[2020-09-14] MEDS: BLOOD GLUCOSE MONITORING 1 DEV DEV FS SCH ×4 (07:46→20:18)
[2020-09-14] MEDS: DEXAMETHASONE 4 MG/ML VIAL IVP SCH (08:22)
[2020-09-14] MEDS: QUEtiapine FUMARATE 25 MG TAB PO SCH (08:24)
[2020-09-14] MEDS: ATORVASTATIN 20 MG TAB PO SCH (08:24)
[2020-09-14] MEDS: LACTULOSE 20 GM/30 ML UDC PO SCH ×2 (08:24→20:22)
[2020-09-14] MEDS: PANTOPRAZOLE 40 MG INJ VIAL IVP SCH (08:25)
[2020-09-14] MEDS: INSULIN LISPRO SLIDING SCALE 100 UNITS/ML VIAL SUBQ PRN ×4 (08:28→20:20)
[2020-09-14] MEDS: INVOKANA 300 MG PO SCH (08:29)
[2020-09-14] MEDS: BENZTROPINE 1 MG TAB PO SCH ×2 (08:45→20:22)
[2020-09-14 09:14] LABS: BASOPHILS % (AUTO) 0.2 % (0.0-2.0); EOSINOPHILS # (AUTO) 0.1 K/uL (0-0.4); EOSINOPHILS % (AUTO) 1.3 % (0.0-4.0); HEMOGLOBIN 8.7 g/dL (12.0-18.0); LYMPHOCYTES # (AUTO) 0.6 K/uL (2.0-11.5); LYMPHOCYTES % (AUTO) 10.4 % (20.5-51.1); MEAN CORPUSCULAR HEMOGLOBIN 25 pg (27-31); MEAN CORPUSCULAR HGB CONC 32 g/dL (33-37); MEAN CORPUSCULAR VOLUME 77.5 fL (80-94); MONOCYTES # (AUTO) 0.6 K/uL (0.8-1.0); MONOCYTES % (AUTO) 9.5 % (1.7-9.3); NEUTROPHILS # (AUTO) 4.9 K/uL (1.8-7.7); NEUTROPHILS % (AUTO) 78.6 % (42.2-75.2); PLATELET COUNT (AUTO) 245 K/uL (140-450); RED BLOOD CELL COUNT(AUTO) 3.49 MIL/uL (4.20-6.10); RED CELL DISTRIBUTION WIDTH 15.9 % (11.6-13.7); WHITE BLOOD COUNT (AUTO) 6.2 K/uL (4.8-10.8)
--- NOTE | 2020-09-14 09:18 | NUR ---
PTT 42, ADMINISTERED 2,500 UNIT BOLUS IVP AND INCREASED DRIP TO 2,000 UNIT/HR PER RX PROTOCOL. WILL ORDER THE NEXT PTT DRAW IN 6 HOURS, WHICH IS 1515.
[2020-09-14 09:20] LABS: MAGNESIUM 2.3 mg/dL (1.8-2.4); POTASSIUM 3.7 mmol/L (3.5-5.1)
[2020-09-14 09:22] LABS: ANION GAP 11.1 (8-16); CARBON DIOXIDE 26.6 mmol/L (21-32); CREATININE 1.1 mg/dL (0.6-1.3); POTASSIUM 3.7 mmol/L (3.5-5.1)
--- NOTE | 2020-09-14 09:26 | NUR ---
AM MEDS ADMINISTERED PER MD ORDER. 2 UNIT HUMALOG ADMINISTERED FOR BLOOD GLUCOSE, 199. MED EDUCATION PROVIDED, REINFORCEMENT NECESSARY. OG TUBE RESIDUAL 5 ML, FLUSHED BEFORE AND AFTER MEDS. MORNING HYGIENE AND ORAL CARE PROVIDED, CHANGED ALL DIRTY LINEN. CATHETER CARE AND PICC LINE CARE PROVIDED. HCG BATH PROVIDED. TING SOFT WRIST RESTRAINTS RELEASED FOR ROM EXERCISES. PT REPOSITIONED AND OFFLOADED PRESSURE WITH PILLOWS. TING HEEL PROTECTORS IN PLACE. HOB 30 DEGREES. CLINICAL RESEARCH MONITOR IN PLACE. SAFETY MEASURES IN PLACE.
--- NOTE | 2020-09-14 09:27 | NUR ---
DR. FAY IS ROUNDING ON PT AT BEDSIDE. PER DR FAY, RESUME PRONING FOR 16 HRS. HOLD FEEDING WHILE PRONING.
--- NOTE | 2020-09-14 10:30 | NUR ---
PATIENT SUCCESSFULLY PLACED IN PRONE POSITION WITHOUT ADVERSE REACTIONS NOTED
--- NOTE | 2020-09-14 10:30 | NUR ---
REPOSITIONED PT TO PRONE POSITION WITH RT ASSISTANCE. PT PLACED IN [place] POSITION. OPTIFOAM APPLIED TO CHIN AND CHEEKS, AND TING KNEES FOR SKIN PROTECTION. TING SOFT WRIST RESTRAINTS IN PLACE. TING HEEL PROTECTORS IN PLACE. HERB COUNSELOR IN PLACE. SAFETY MEASURES IN PLACE.
--- NOTE | 2020-09-14 11:30 | NUR ---
CHECKED BLOOD GLUCOSE AND RECEIVED 207, 4 UNITS OF HUMALOG COVERAGE GIVEN VIA SUBQ. PATIENT IS ON PRONE POSITION, RESPIRATION EVEN AND UNLABORED ON ETT TO VENT, AC/PC FIO 80%, SPO2 AT 100%. RELEASED SOFT WRIST RESTRAINTS AND PERFORMED ROM, NO SIGNS OF INJURY. NO SIGNS OF ACUTE DISTRESS NOTED. INSTALLER IN PLACE. SAFETY MEASURES IN PLACE.
--- NOTE | 2020-09-14 12:01 | NUR ---
PT'S BROTHER, TESSA CALLED FOR UPDATES ON PT. BROTHER AWARE OF PT CONDITION.
--- NOTE | 2020-09-14 14:35 | NUR ---
PRONE POSITION REPOSITION TO LEFT SIDE TRANSFERRED ENDOTRACHEAL TUBE TO LEFT SIDE OF ORAL
--- NOTE | 2020-09-14 14:35 | NUR ---
REPOSITIONED PT HEAD TO LEFT SIDE WHILE IN PRONE POSITION WITH RT COLLABORATION. PT TOLERATED WELL. TING SOFT WRIST RESTRAINTS REMOVED FOR ROM. PT IN [place]ENDE[place] POSITION. POKER PROP PLAYER IN PLACE. SAFETY MEASURES IN PLACE.
--- NOTE | 2020-09-14 14:43 | NUR ---
PATIENT PRESENTING WITH DECLINING SATURATION TO 84% INCREASED FIO2 TO 100% UNABLE TO INCREASE PEEP AT THIS TIME DUE TO SYSTOLIC PRESSURE AT 87mmHg (RECYCLED X 2) JANETH/LINDSAY NOTIFIED
--- NOTE | 2020-09-14 16:23 | NUR ---
RECEIVED CRITICAL VALUE, PTT 70.4, NO CHANGE PER PHARMACY PROTOCOL. CONTINUE HEPARIN DRIP INFUSING AT 2000 UNITS/HR. WILL ORDER NEW LAB DRAW IN 6 HR.
--- NOTE | 2020-09-14 16:48 | NUR ---
BLOOD GLUCOSE CHECKED, 210, 4 UNITS HUMALOG ADMINISTERED. PT MED EDUCATION PROVIDED, REINFORCEMENT NEEDED. PT PRONE IN [place]DE[place]G POSITION. TING SOFT WRIST RESTRAINTS REMOVED FOR ROM EXERCISES. BED LOW, TING HEEL PROTECTORS IN PLACE. FRUIT DRYER IN PLACE. SAFETY MEASURES IN PLACE.
--- NOTE | 2020-09-14 17:08 | NUR ---
RESTING COMFORTABLY SEDATED GOOD CHEST RISE ENDOTRACHEAL SUCTION WITH NO SECRETION RETURNED SATURATION 99% ON FIO2 OF 100% PEEP 81hrN2D DECREASED FIO2 TO 80% REVIEWED SYSTOLIC PRESSURE AT 110mmHG INCREASED PEEP TO 14 cmH2O PER ARDS PROTOCOL JANETH/RN NOTIFIED
--- NOTE | 2020-09-14 17:19 | NUR ---
DR AMOS IS ROUNDING ON PATIENT.
[2020-09-14] MEDS: DEXT 5% / NACL 0.45% 1,000 ML IV SCH (17:42)
--- NOTE | 2020-09-14 17:43 | NUR ---
NEW BAG OF HEPARIN AND D5 1/2NS STARTED.
--- NOTE | 2020-09-14 19:27 | NUR ---
RECEIVED PATIENT FROM [facility] ON PC 25,RR18 PEEP 14 80% FIO2. VENT PLUGGED INTO RED OUTLET. BMV AT BEDSIDE. ETT SECURED. AIRWAY PATENT. ALARMS SET. SX NO SECRETION. PT IS IN PRONE POSITION. HEAD TILT TO THE LEFT. NO RESPIRATORY DISTRESS NOTED. WILL CONTINUE TO MONITOR IN CHANGES OF RESPIRATORY STATUS
--- NOTE | 2020-09-14 20:00 | NUR ---
RECEIVED REPORT FROM DAY SHIFT RN. DRY WEIGHT 78.9 KG. PATIENT IS ETT TO VENT. RASS -3. A/C PC FIO2: 80%, RATE: 18, AND PEEP: 14. SR, S1S2 NOTED. ROLANDA MIDLINE. PATENT, NO INFILTRATION, FLEBITIS NOTED. RUNNING HEPARIN 2000 UNIT/HR (25,000 UNIT/250ML), PROPOFOL 29.97 MCG/KG/MIN (14.19ML/HR), FENTANYL 3 MCG/KG/HR (23.67 ML/HR), VERSED 6MG/HR (6ML/HR) AND D5 1/2 NS @ 40ML/HR. LUNG SOUNDS: COARSE BILATERAL UPPER LOBES AND DIMINISHED LOWER BILATERAL LOBES. BOWEL SOUNDS ACTIVE IN ALL 4 QUADRANTS, OG-TUBE IN PLACE, RESIDUAL 0ML. FEEDING STOPPED DUE TO PT IN PRONE POSITION. FITZGERALD IN PLACE, DRAINING TO GRAVITY. BILATERAL WRIST RESTRAINTS, NO S/S OF INJURIES NOTED. DTI TO UNDER CHIN, AND RT CHEEK SKIN TEAR. BOTH HAVE A FOAM DRESSING. SKIN OTHERWISE INTACT. SAFETY MEASURES IN PLACE, BED LOW AND LOCKED. SIDE RAILS UP. CALL LIGHT WITHIN REACH. WILL CONTINUE TO MONITOR.
[2020-09-14] MEDS: LATUDA PO SCH (20:23)
[2020-09-14] MEDS: [UNRECOGNIZED DRUG - OTHER] PO SCH (20:23)
--- NOTE | 2020-09-14 22:00 | NUR ---
PATIENT IS IN PRONE POSITION, NO S/S OF DISTRESS NOTED. SAFETY MEASURE IN PLACE, WILL CONTINUE CURRENT PLAN OF CARE.
[2020-09-15] VITALS (103 sets, daily range): BP systolic 68–128; BP diastolic 35–63
--- NOTE | 2020-09-15 | NUR ---
PATIENT IS STILL IN PRONE POSITION, NO S/S OF DISTRESS NOTED. SAFETY MEASURE IN PLACE, WILL CONTINUE TO MONITOR
[2020-09-15] MEDS: MIDAZOLAM MDV 100 MG in NACL 0.9% 80 ML IV PRN ×2 (00:05→19:19)
[2020-09-15] MEDS: ALBUTEROL SULFATE/IPRATROPIU 3 ML SOL IH SCH ×4 (00:50→20:45)
--- NOTE | 2020-09-15 02:00 | NUR ---
SAFETY MEASURES IN PLACE, BED LOW AND LOCKED, SIDE RAILS UP, CALL LIGHT WITHIN REACH. PATIENT IS STILL IN PRONE POSITION WITH REVERSE [place]ENDELENBURG. NO S/S OF DISTRESS NOTED. WILL CONTINUE CURRENT PLAN OF CARE.
[2020-09-15] MEDS: fentaNYL citrate 2.5 MG in NACL 0.9% 200 ML IV PRN ×2 (03:41→15:00)
--- NOTE | 2020-09-15 04:15 | NUR ---
MORNING ROUTINE PROVIDED, NEW LINEN, BLANKETS AND PILLOW CASES. REPOSITIONED PATIENT TO SUPINE POSITION, WITH PILLOWS. PATIENT TOLERATED IT WELL. SUPINE WITH HOB AT 30 DEGREES. PT O2 SAT IN 90s
--- NOTE | 2020-09-15 04:42 | NUR ---
PATIENT PLACED BACK IN SUPINE. AW PATENT. ETT SECURED. NO DISTRESS NOTED. WILL CONTINUE TO MONITOR
--- NOTE | 2020-09-15 04:45 | NUR ---
ASSESSED OG-TUBE PATENCY, AND PLACEMENT. NO RESIDUAL. RESTARTED FEEDING. VITAL AF 1.2 @ 75ML WITH FWF 200 ML Q 12HR. ONCE PT SUPINE POSITION. WILL CONTINUE CURRENT POC.
[2020-09-15] MEDS: PROPOFOL 1000 MG/100 ML PREMIX 100 ML IV PRN ×3 (04:53→17:12)
[2020-09-15] MEDS ORDERED: PIPERACILLIN/TAZOBACTAM 2.25 GM VIAL IV ONE (05:09)
[2020-09-15] MEDS: PIPERACILLIN/TAZOBACTAM 2.25 GM in DEXTROSE 5% 50 ML IV SCH ×3 (05:37→20:56)
[2020-09-15] MEDS: PHENYLEPHRINE 40 MG in NACL 0.9% 250 ML IV PRN ×3 (06:05→23:15)
--- NOTE | 2020-09-15 06:05 | NUR ---
PT'S BP TRENDING LOW. STARTED BRIDGETTE-SYNEPHRINE PER MD ORDER. WILL CONTINUE TO MONITOR
[2020-09-15 06:17] LABS: BASOPHILS % (AUTO) 0.2 % (0.0-2.0); EOSINOPHILS % (AUTO) 0.2 % (0.0-4.0); HEMATOCRIT 22.8 % (36-52); HEMOGLOBIN 7.4 g/dL (12.0-18.0); LYMPHOCYTES # (AUTO) 0.3 K/uL (2.0-11.5); LYMPHOCYTES % (AUTO) 5.2 % (20.5-51.1); MEAN CORPUSCULAR HEMOGLOBIN 25 pg (27-31); MEAN CORPUSCULAR HGB CONC 32 g/dL (33-37); MEAN CORPUSCULAR VOLUME 78.6 fL (80-94); MONOCYTES # (AUTO) 0.5 K/uL (0.8-1.0); MONOCYTES % (AUTO) 7.8 % (1.7-9.3); NEUTROPHILS # (AUTO) 5.1 K/uL (1.8-7.7); NEUTROPHILS % (AUTO) 86.6 % (42.2-75.2); PLATELET COUNT (AUTO) 208 K/uL (140-450); RED BLOOD CELL COUNT(AUTO) 2.91 MIL/uL (4.20-6.10); RED CELL DISTRIBUTION WIDTH 16.2 % (11.6-13.7); WHITE BLOOD COUNT (AUTO) 5.9 K/uL (4.8-10.8)
[2020-09-15] MEDS ORDERED: hePARIN / DEXT 5% PREMIX 250 ML IV SCH (07:10)
[2020-09-15] MEDS: BLOOD GLUCOSE MONITORING 1 DEV DEV FS SCH ×4 (07:30→21:35)
[2020-09-15] MEDS ORDERED: HEPARIN PER PHARMACY MC PRN (07:30)
[2020-09-15 08:45] LABS: ANION GAP 13.3 (8-16); CARBON DIOXIDE 25.5 mmol/L (21-32); POTASSIUM 4.8 mmol/L (3.5-5.1)
[2020-09-15] MEDS: LACTULOSE 20 GM/30 ML UDC PO SCH ×2 (09:10→20:59)
[2020-09-15] MEDS: QUEtiapine FUMARATE 25 MG TAB PO SCH (09:10)
[2020-09-15] MEDS: PANTOPRAZOLE 40 MG INJ VIAL IVP SCH (09:10)
[2020-09-15] MEDS: ATORVASTATIN 20 MG TAB PO SCH (09:11)
[2020-09-15] MEDS: BENZTROPINE 1 MG TAB PO SCH ×2 (09:11→21:00)
[2020-09-15] MEDS: DEXAMETHASONE 4 MG/ML VIAL IVP SCH (09:11)
[2020-09-15] MEDS: INVOKANA 300 MG PO SCH (09:14)
[2020-09-15] MEDS: INSULIN LISPRO SLIDING SCALE 100 UNITS/ML VIAL SUBQ PRN ×3 (09:20→22:03)
--- NOTE | 2020-09-15 09:40 | NUR ---
AM MEDS GIVEN, OGT RESIDUAL 150ML, FEED HELD FOR NOW, WOUND CARE NURSE AT BEDSIDE.
--- NOTE | 2020-09-15 10:15 | NUR ---
DR QUIROZ AT BEDSIDE, PT CONDITION DISCUSSED, NOTIFIED OF ETT CONNECTION THAT KEEPS DISCONNECTING, PER DR QUIROZ, NO NEED TO EXCHANGE THE ENTIRE ET TUBE UNLESS ETT CUFF BROKEN OR OTHER ISSUES. KEEP CONNECTION TIGHT WITH TAPE OR OTHER METHODS TO PREVENT DISCONNECTION PER DR QUIROZ. WILL INFORM RT.
--- NOTE | 2020-09-15 10:15 | NUR ---
DR QUIROZ AT BEDSIDE,
--- NOTE | 2020-09-15 10:50 | NUR ---
WOUND CARE EVALUATION NOTE REASON FOR EVALUATION: CHANGE OF SKIN CONDITION SKIN ASSESSMENT DONE WITH PRIMARY RN ON THIS A 59-YEAR-OLD MALE PT. WITH PAST MEDICAL HISTORY OF SCHIZOPHRENIA WHO WAS ADMITTED WITH POSITIVE FOR COVID-19 .PT. INTUBATED ON HIGH FIO2 SEDATION, OG-TUBE IN PLACE. ETT TO VENT. SKIN IS COLD AND DRY, BLE NO HAIR GROWTH, +2 EDEMA TO BILATERAL UPPER ARMS AND LOWER LEGS. BILATERAL DORSAL PEDAL PULSES PRESENT AND DIMINISHES, THICKEN LONG TOE NAILS OBSERVED. F/C PATENT WITH SMALL AMOUNT OF YELLOW URINE OBSERVED. H/H 7.4/22.8, ALBUMIN LEVEL 09/07/2020 2.4, PT/INR 09/10/2020 9.2/0.93 AND RECENT APTT 38.8. PLAN OF CARE DISCUSSED WITH PRIMARY RN. COMORBIDITIES RELATED TO DELAY WOUND HEALING, FURTHER SKIN BREAKS AND UN-AVOIDABLE PRESSURE INJURY: COVID INFECTION, LOW ALBUMIN LEVEL, HYPOXEMIC DECREASE TISSUE PERFUSION, DECREASE MOBILITY AND FUNCTIONAL ABILITIES, AND HOB ELEVATED THE MAJORITY OF TIMES DUE TO MEDICAL REASONS. INTEGUMENTARY: - LINE PAINTING MACHINE OPERATOR RELATED SKIN BREAKS, OPEN ULCERATIONS TO LEFT (0.5X1 CM) AND RIGHT(1.5X1CM) EAR LOBES, PARTHIAL THICKNESS SKIN LOSS, SUPERFICIAL DEPTH, WOUND BED RED, LIGHT YELLOW AND MOIST NO ODOR. -LINE PAINTING MACHINE OPERATOR RELATED SKIN BREAKS, OPEN ULCERATIONS TO RIGHT CHEEK 1X3CM SUPERFICIAL DEPTH. -DTI TO CHIN 3X3CM SKIN PURPLE COLOR AND INTACT -LIPS AND ORAL MEMBRANAE DRY AND CLEAN. LOWER LIP DRY SCAB 0.5X1CM. -ABDOMEN DISTENDED, SOFT -UPPER ARMS MULTIPLE ECCHYMOSIS PIN POINTS, SKIN INTACT. RECOMMENDATIONS -CONTINUE PADDING AND OFFLOADING TO BONY PERMANENCE WHIH PRONING POSITION -APPLY SKIN PREP TO CHIN BID AND AUTOMOTIVE MAINTENANCE TECHNICIAN -PAINT RIGHT AND LEFT EAT LOBS, LOWER LIP WITH BETADINE SOLUTION BID AND LEAVE IT OPEN TO AIR, OFF LOADING AREA, REPOSITION ET AND OGT PRN - REPOSITION ETT BELLO, OFFLOADING CHEEK BONE AND LIPS, APPLY VERSATEL DRESSING TO RIGHT CHEEK Q5 DAYS AND PRN IF SOILING. -OFFLOAD BILATERAL HEELS BY PLACING PILLOWS UNDER CALVES UNLESS OTHERWISE CONTRAINDICATED -PRESSURE REDISTRIBUTION SURFACE THERAPY -TURN AND REPOSITION Q2H, OFFLOAD SACRALCOCCYX BY TURNING RIGHT AND LEFT -CONTINUE TO FOLLOW RD RECOMMENDATIONS PLEASE CONTACT WOUND CARE NURSE FOR ANY QUESTION AND CHANGE OF WOUND CONDITION.
[2020-09-15] MEDS ORDERED: FUROSEMIDE 40 MG/4 ML VIAL IVP SCH (11:00)
--- NOTE | 2020-09-15 11:47 | NUR ---
BROTHER TESSA CALLED FOR CONDITION UPDATE, TESSA ALSO SPOKE TO KANDI ON THE PHONE WITH SPEAKER.
[2020-09-15] MEDS: GAUZE TP SCH (13:30)
--- NOTE | 2020-09-15 13:31 | NUR ---
RT AT BEDSIDE TO SECURE ETT CONNECTION
--- NOTE | 2020-09-15 16:05 | NUR ---
PT PLACED IN PRONE POSITION, PT ABBEY WELL.
--- NOTE | 2020-09-15 16:10 | NUR ---
PT PLACED INTO PRONE POSITION WITHOUT INCIDENT. ETT IS SECURE WITH A PATENT AIRWAY. FIO2 TITRATED TO 85%. WILL CONTINUE TO MONITOR.
--- NOTE | 2020-09-15 17:00 | NUR ---
PT REMAINS IN PRONE POSITION, RESP EVEN UNLABORED, BLOOD SUGAR 216, 4 UNITS GIVEN PER SLIDING SCALE.
--- NOTE | 2020-09-15 19:30 | NUR ---
RECIEVED ENDORSEMENT FROM DAY SHIFT RN, PT SEDATED RASS -3, IN PRONE POSITION, PT AFEBRILE, SR ON MONITOR, PERIPHERAL PULSES PALPABLE, ETT TO VENT ACPC FIO2 65% RATE 18 PEEP 14, LUNG DIMINISHED BILATERAL, OGT TO TF HELD D/T PRONE POSITION, FC IN PLACE, SKIN NOT INTACT, SKIN TEAR ON BOTH EAR LOBES, CHIN AND CHEEK, ROLANDA MIDLINE RUNNING VERSED 6MG/HR, BRIDGETTE SYN 100MG/MIN, D5 HALF NS 100MLS/HR, PROPOFOL 30MCG/KG/MIN, HEPARIN 1750 UNIT/HR, FENTANYL, 2.5MG/HR, PT SHOWING NO SIGNS OF ACUTE DISTRESS, SAFETY MEASURES IN PLACE, WILL CONTINUE TO MONITOR
[2020-09-15] MEDS: LATUDA PO SCH (21:02)
[2020-09-15] MEDS: [UNRECOGNIZED DRUG - OTHER] PO SCH (21:02)
--- NOTE | 2020-09-15 21:30 | NUR ---
PT IN PRONE POSITION, AFEBRILE, ADMINISTERED 2100H MEDICATIONS PER ORDERED, BLOOD GLUCOSE 228, 4 UNITS OF HUMALOG ADMINISTERED PER PROTOCOL, PT SHOWING NO SIGNS OF ACUTE DISTRESS, SAFETY MEASURES IN PLACE, WILL CONTINU TO MONITOR
--- NOTE | 2020-09-15 23:45 | NUR ---
PTT 33.2, HEPARIN INCREASED TO 2050 UNIT/HR AND GAVE 4500 UNIT BOLUS PER PROTOCOL
[2020-09-16] VITALS (103 sets, daily range): BP systolic 80–137; BP diastolic 41–74
[2020-09-16] MEDS: hePARIN / DEXT 5% PREMIX 250 ML IV SCH (00:12)
[2020-09-16] MEDS: PROPOFOL 1000 MG/100 ML PREMIX 100 ML IV PRN ×4 (00:37→18:41)
[2020-09-16] MEDS: GAUZE TP SCH ×2 (00:52→12:59)
--- NOTE | 2020-09-16 01:30 | NUR ---
PT IN PRONE POSITION, ORAL CARE PERFORMED, PT AFEBRILE AND SHOWING NO SIGNS OF ACUTE DISTRESS, SAFETY MEASURES IN PLACE, WILL CONTINUE TO MONITOR
[2020-09-16] MEDS: ALBUTEROL SULFATE/IPRATROPIU 3 ML SOL IH SCH ×4 (03:14→19:00)
[2020-09-16] MEDS: fentaNYL citrate 2.5 MG in NACL 0.9% 200 ML IV PRN ×2 (03:33→16:44)
[2020-09-16] MEDS: PIPERACILLIN/TAZOBACTAM 2.25 GM in DEXTROSE 5% 50 ML IV SCH ×3 (04:14→21:29)
--- NOTE | 2020-09-16 04:40 | NUR ---
HUNG NEW BAG OF ZOSYN 2.25GM
--- NOTE | 2020-09-16 06:15 | NUR ---
PTT 118.2, HEPARIN ON HOLD
[2020-09-16 06:19] LABS: ALBUMIN 1.4 g/dL (3.4-5.0); BILIRUBIN,DIRECT 0.2 mg/dL (0.0-0.3); TOTAL BILIRUBIN 0.4 mg/dL (0.0-1.0)
[2020-09-16] MEDS: PHENYLEPHRINE 40 MG in NACL 0.9% 250 ML IV PRN ×3 (06:47→23:00)
--- NOTE | 2020-09-16 07:13 | NUR ---
RECEIVED WINDOW-SIDE REPORT FROM PAPER CLEANER NURSE FARHEEN FOR CONTINUITY OF CARE. PATIENT IS LYING ON PRONE POSITION, RASS -3, DRY WEIGHT 78.9 KG, FLACC 0. RESPIRATION EVEN AND UNLABORED ON ETT TO VENT: AC/PC FIO2 AT 85%, RATE 18, PEEP 14, SPO2 AT 100% AT THIS TIME. NO SIGNS OF ACUTE DISTRESS NOTED. GINA MIDLINE IN PLACE, CLEAN AND INTACT, RUNNING PROPOFOL AT 30 MCG/KG/MIN, BRIDGETTE-SYNEPHRINE AT 100 MCG/MIN, FENTANYL AT 2.5 MCG/KG/HR, VERSED AT 6 MG/HR, AND D5NS0.45 AT 40 ML/HR. OGT IN PLACE, NOT RUNNING AT THIS TIME. EDEMA ON BUE/BLE EXTREMITIES, NONPITTING. OPEN ULCERATIONS ON L AND R EAR LOBES, RIGHT CHEEK NOTED, SCAB ON LOWER LIP NOTED, DTI TO CHIN, OPEN TO AIR. FITZGERALD IN PLACE, DRAINING WITH GRAVITY. PILLOWS USED TO UPLOADED PRESSURE AND BILATERAL HEEL PROTECTORS IN PLACE. LATENT PRINT EXAMINER IN PLACE. SAFETY MEASURES IN PLACE. BED IN LOW POSITION, HOB ELEVATED 35 DEGREE, BED LOCKED.
--- NOTE | 2020-09-16 07:15 | NUR ---
HEPARIN DRIP RESUMED, DRIPPING AT 1,800 UNIT/HR PER RX PROTOCOL.
[2020-09-16] MEDS: BLOOD GLUCOSE MONITORING 1 DEV DEV FS SCH ×4 (07:30→21:29)
--- NOTE | 2020-09-16 07:41 | NUR ---
ENDORSED TO DAY SHIFT RN FOR CONTINUITY OF CARE
[2020-09-16 07:48] LABS: MAGNESIUM 2.7 mg/dL (1.8-2.4); POTASSIUM 4.9 mmol/L (3.5-5.1)
[2020-09-16] MEDS: LACTULOSE 20 GM/30 ML UDC PO SCH ×2 (08:11→21:31)
[2020-09-16] MEDS: PANTOPRAZOLE 40 MG INJ VIAL IVP SCH (08:11)
[2020-09-16] MEDS: BENZTROPINE 1 MG TAB PO SCH ×2 (08:11→21:31)
[2020-09-16] MEDS: ATORVASTATIN 20 MG TAB PO SCH (08:12)
[2020-09-16] MEDS: DEXAMETHASONE 4 MG/ML VIAL IVP SCH (08:12)
[2020-09-16] MEDS: QUEtiapine FUMARATE 25 MG TAB PO SCH (08:12)
[2020-09-16] MEDS: INVOKANA 300 MG PO SCH (08:12)
[2020-09-16 08:17] LABS: ANION GAP 17.3 (8-16); CARBON DIOXIDE 21.6 mmol/L (21-32); POTASSIUM 4.9 mmol/L (3.5-5.1)
--- NOTE | 2020-09-16 08:20 | NUR ---
CHECKED BLOOD GLUCOSE AND RECEIVED 122, NO COVERAGE NEEDED. ADMINISTERED SCHEDULED AM MEDS, FLUSH BEFORE AND AFTER MEDS. PROVIDED HYGIENE CARE, CHG BATH, FITZGERALD CARE, FITZGERALD FLUSH, PATENT, INTACT, ORAL CARE, PATIENT TOLERATED FAIR. REPOSITIONED PATIENT'S ARMS. NO SIGNS OF ACUTE DISTRESS NOTED, SCRIP CLERK IN PLACE. SAFETY MEASURES IN PLACE.
--- NOTE | 2020-09-16 08:23 | NUR ---
RECEIVED CRITICAL LAB FOR BUN 61, PAGED DR TIM, AND AWAITING FOR MD TO RETURN CALL.
--- NOTE | 2020-09-16 08:29 | NUR ---
RECEIVED A CALL BACK FROM DR TIM, REPORTED BUN 61, CR 3, POTASSIUM 4.9. UPDATED DR TIM WITH LOW URINE OUTPUT FROM LAST NIGHT, [address] TIM WAS AWARE. RECEIVED TORB ORDER FOR LASIX 60 MG IVP ONCE TIME, REPEATED AND CONFIRMED ORDER WITH DR TIM AND WILL INPUT ORDER ACCORDINGLY.
--- NOTE | 2020-09-16 08:46 | NUR ---
ADMINISTERED LASIX [address] TIM ORDERS, FITZGERALD FLUSHED, PATENT, INTACT.
[2020-09-16] MEDS ORDERED: FUROSEMIDE 100 MG/10 ML VIAL IV SCH (09:00)
--- NOTE | 2020-09-16 09:49 | NUR ---
DR MESSER IS ROUNDING ON PATIENT.
--- NOTE | 2020-09-16 09:51 | NUR ---
at bedside decreased fio2 to 75%
--- NOTE | 2020-09-16 09:52 | NUR ---
RECEIVED A CALL FROM DR TIM. PER DR TIM, HE HAS SPOKE WITH THE FAMILY MEMBER-BROTHER TESSA AND EXPLAINED TO TESSA ON REGARDS OF PATIENT'S CURRENT CONDITION, AND TESSA WAS AWARE AND AGREED FOR BRITTANI CATHETER PLACEMENT AND DIALYSIS. DR TIM HAS NOTIFED DR OSHEA ON REGARDS OF CONSULTATION FOR BRITTANI CATHETER PLACEMENT. WILL OBTAIN CONSENT FOR BRITTANI CATH PLACEMENT SHORTLY.
[2020-09-16] MEDS: NACL 0.9% 1,000 ML IV SCH ×2 (10:40→23:58)
--- NOTE | 2020-09-16 11:17 | NUR ---
CONSENTS OBTAINED FOR BRITTANI CATHETER PLACEMENT AND HEMODIALYSIS, PATIENT'S BROTHER TESSA, SPOKE WITH DR TIM OVER THE PHONE, AND WAS AGREED AND AWARE OF PROCEDURES.
--- NOTE | 2020-09-16 11:36 | NUR ---
BLOOD GLUCOSE 150, NO COVERAGE NEEDED, REPOSITIONED PATIENT'S ARMS, PATIENT TOLERATED FAIR, NO SIGNS OF ACUTE DISTRESS NOTED. RESPIRATION EVEN AND UNLABORED ON ETT TO VENT, SPO2 AT 100%. MEMBER OF THE LEGISLATIVE ASSEMBLY IN PLACE. SAFETY MEASURES IN PLACE.
--- NOTE | 2020-09-16 12:04 | NUR ---
DR OSHEA WILL INSERT BRITTNAI CATHETER THIS EVENING, HE ORDERS TO HOLD HEPARIN DRIP. HEPARIN DRIP HOLD AT THIS TIME.
--- NOTE | 2020-09-16 13:02 | NUR ---
ADMINISTERED SCHEDULED ZOSYN PER MD ORDER. REPOSITIONED PATIENT'S ARMS, PATIENT TOLERATED FAIR. COLOR CONTROL OPERATOR IN PLACE. SAFETY MEASURES IN PLACE.
--- NOTE | 2020-09-16 13:13 | NUR ---
DR TIM IS ROUNDING ON PATIENT.
--- NOTE | 2020-09-16 13:20 | NUR ---
NOTIFIED BUSTER THE MARITIME PILOT THAT PATIENT HAS DIALYSIS ORDER FOR TODAY AND WAITING FOR DR OSHEA TO INSERT QUNTON CATHETER AND WILL CONTACT HER ONCE DR OSHEA DONE WITH INSERTION. BUSTER WAS AWARE.
--- NOTE | 2020-09-16 14:15 | NUR ---
WITH ASSIST FROM RT, SUPINE PATIENT, AND POSITIONED PATIENT COMFORTABLY, CHANGED ALL DIRTY LINENS, USED PILLOWS TO UPLOADED PRESSURE, APPLIED HEEL PROTECTORS BILATERALLY. RESPIRATION EVEN AND UNLABORED ON ETT TO VENT, FIO 75%, SPO2 AT 100%. FLACC 0. PROVIDED ORAL CARE, AND SKIN CARE. APPLIED BETADINE ON BOTH EAR LOBES, AND SKIN PREP ON CHIN, LAMBERT. WILL START OGT FEEDING SHORTLY. FAMILY LAW MEDIATOR IN PLACE. SAFETY MEASURES IN PLACE. HOB ELEVATED 35 DEGREE, BED IN LOW POSITION AND BED LOCKED.
--- NOTE | 2020-09-16 14:15 | NUR ---
PT IS NOW SUPINED SXN MODERATE AMT OF THICK WHITE SECRETIONS
--- NOTE | 2020-09-16 14:49 | NUR ---
STARTED OGT FEEDING VITAL AF 1.2 WITH PROSOURCE ADDED AT 75 ML/HR AND WATER FLUSH 200 ML Q12 HOUR.
--- NOTE | 2020-09-16 14:52 | NUR ---
09/16/20 RD FOLLOW UP COMPLETED PLEASE REFER TO NUTRITION ASSESSMENT UNDER CARE ACTIVITY FOR ESTIMATED NUTRITIONAL NEEDS. 1. CONTINUE VITAL AF 1.2 @ 75 ML/HR X 6 HOURS DURING SUPINE POSITION, WITH PROSOURCE X4 PER DAY -THIS WILL PROVIDE 450 ML OF VOLUME, 780 KCAL AND 93 GM OF PROTEIN PER DAY. THIS MEETS 42% OF ESTIMATED KCAL NEEDS AND 100% OF ESTIMATED PROTEIN NEEDS. 2. RECOMMEND VITAMIN C 1000 MG DAILY AND ZINC 220 MG DAILY X 14 DAYS 3. IF RENAL FUNCTION WORSENS CONSIDER CHANGING FORMULA TO NEPRO @ 70 ML/HR X 6 HOURS WITH PROSOURCE 4X DAY -THIS WILL PROVIDE 996 KCAL AND 91 GM OF PROTEIN WHICH WILL PROVIDE 54% OF KCAL NEEDS AND 100% OF PROTEIN NEEDS. 4. RD TO FOLLOW-UP 2-3 DAYS, HIGH RISK ALEIDA BENTLEY RD
[2020-09-16] MEDS: MIDAZOLAM MDV 100 MG in NACL 0.9% 80 ML IV PRN (15:12)
--- NOTE | 2020-09-16 16:19 | NUR ---
CHECKED OGT RESIDUAL AND RECEIVED 40 ML, FLUSHED. WITH ASSIST, REPOSITIONED PATIENT, AND OFFLOADED PRESSURE WITH PILLOWS, PATIENT TOLERATED FAIR. NO SIGNS OF ACUTE DISTRESS NOTED. SYSTEM SUPPORT SPECIALIST IN PLACE. SAFETY MEASURES IN PLACE.
[2020-09-16] MEDS: INSULIN LISPRO SLIDING SCALE 100 UNITS/ML VIAL SUBQ PRN ×2 (16:31→21:29)
--- NOTE | 2020-09-16 16:32 | NUR ---
BLOOD GLUCOSE 229, 4 UNITS OF HUMALOG ADMINISTERED VIA SUBQ.
--- NOTE | 2020-09-16 18:20 | NUR ---
WITH ASSIST, REPOSITIONED PATIENT, AND OFFLOADED PRESSURE WITH PILLOWS. PROVIDED ORAL CARE, AND SUCTIONING, RECEIVED MINIMAL YELLOW MUCUS, CHECKED OGT RESIDUAL, AND RECEIVED 45 ML, FLUSHED OGT. NO SIGNS OF ACUTE DISTRESS NOTED. LANDSCAPE LABORER IN PLACE. SAFETY MEASURES IN PLACE. HOB ELEVATED 35 DEGREE, BED IN LOW POSITIONED, AND BED LOCKED.
--- NOTE | 2020-09-16 19:17 | NUR ---
ENDORSED PATIENT TO CLINIC OFFICE COORDINATOR NURSE ESTUARDO FOR CONTINUITY OF CARE, PATIENT IS LYING ON LEFT LATERAL POSITION COMFORTABLY ON BED, RESPIRATION EVEN AND UNLABORED ON ETT TO VENT, SPO2 100%, FLACC 0. DAYCARE DIRECTOR IN PLACE. SAFETY MEASURES IN PLACE. PATIENT IS IN STABLE CONDITION.
--- NOTE | 2020-09-16 21:04 | NUR ---
DR OSHEA @ BEDSIDE; OK TO USE HD CATH.
[2020-09-16] MEDS: NOREPINEPHRINE 8 MG in DEXTROSE 5% 250 ML IV PRN (21:17)
--- NOTE | 2020-09-16 21:25 | NUR ---
SPOKE TO DR RAMOS, NEW ORDERS FOR STAT BMP, ABG. WILL FOLLOW UP.
[2020-09-16] MEDS: LATUDA PO SCH (21:43)
[2020-09-16] MEDS: [UNRECOGNIZED DRUG - OTHER] PO SCH (21:43)
[2020-09-16 22:05] LABS: ANION GAP 16.1 (8-16); CARBON DIOXIDE 23.2 mmol/L (21-32); CREATININE 3.8 mg/dL (0.6-1.3); POTASSIUM 5.3 mmol/L (3.5-5.1)
[2020-09-16] MEDS ORDERED: SODIUM BICARBONATE 8.4% PFS 50 MEQ/50 ML SYR IVP ONE ×2 (23:06→23:25)
[2020-09-16] MEDS ORDERED: SODIUM BICARBONATE 8.4% 150 MEQ in DEXTROSE 5% 1,000 ML IV SCH (23:20)
--- NOTE | 2020-09-16 23:58 | NUR ---
DR. AYERS CALLED BACKED, ABG RESULTS WERE REPORTED. VENT CHANGES: INCREASED RR FROM 18 TO 24 AND TITRATE FiO2 TO KEEP SPO2 > 92%. FiO2 TITRATED FROM 75% TO 60% WITH SPO2 OF 97%. RN NOTIFIED. HHN TX GIVEN AND PT TOLERATED TX WEL WITH NO ADVERSE REACTION. PT IS IN NO RESPIRATORY DISTRESS AT THIS TIME. WILL CONTINUE TO MONITOR PT.
[2020-09-17] VITALS (77 sets, daily range): BP systolic 81–190; BP diastolic 23–150
[2020-09-17] MEDS: ALBUTEROL SULFATE/IPRATROPIU 3 ML SOL IH SCH ×3 (00:04→13:16)
[2020-09-17] MEDS: PROPOFOL 1000 MG/100 ML PREMIX 100 ML IV PRN ×3 (01:00→13:54)
[2020-09-17] MEDS: GAUZE TP SCH ×2 (01:00→13:01)
[2020-09-17] MEDS: PHENYLEPHRINE 40 MG in NACL 0.9% 250 ML IV PRN ×4 (02:43→17:34)
[2020-09-17] MEDS: PIPERACILLIN/TAZOBACTAM 2.25 GM in DEXTROSE 5% 50 ML IV SCH ×2 (05:00→13:00)
[2020-09-17 05:52] LABS: HEMATOCRIT 29.3 % (36-52); MEAN CORPUSCULAR HEMOGLOBIN 25 pg (27-31); MEAN CORPUSCULAR HGB CONC 31 g/dL (33-37); MEAN CORPUSCULAR VOLUME 79.6 fL (80-94); PLATELET COUNT (AUTO) 333 K/uL (140-450); RED BLOOD CELL COUNT(AUTO) 3.68 MIL/uL (4.20-6.10); RED CELL DISTRIBUTION WIDTH 16.5 % (11.6-13.7); WHITE BLOOD COUNT (AUTO) 3.4 K/uL (4.8-10.8)
[2020-09-17 06:21] LABS: HEMOGLOBIN 9.1 g/dL (12.0-18.0)
[2020-09-17 06:35] LABS: EOSINOPHILS % (MANUAL) 1 % (0-4); LYMPHOCYTES % (MANUAL) 18 % (20-46); MONOCYTES % (MANUAL) 11 % (5-12)
[2020-09-17] MEDS: fentaNYL citrate 2.5 MG in NACL 0.9% 200 ML IV PRN (07:02)
[2020-09-17] MEDS: MIDAZOLAM MDV 100 MG in NACL 0.9% 80 ML IV PRN (07:03)
[2020-09-17 07:12] LABS: ALBUMIN 1.4 g/dL (3.4-5.0); ANION GAP 19.8 (8-16); CARBON DIOXIDE 20.8 mmol/L (21-32); POTASSIUM 4.6 mmol/L (3.5-5.1); TOTAL BILIRUBIN 0.4 mg/dL (0.0-1.0)
--- NOTE | 2020-09-17 07:22 | NUR ---
RECEIVED WINDOW-SIDE REPORT FROM DEHAIRING MACHINE TENDER NURSE ESTUARDO FOR CONTINUITY OF CARE. PATIENT IS LYING ON SUPINE POSITION, RASS -3, DRY WEIGHT 78.9 KG, FLACC 0. RESPIRATION EVEN AND UNLABORED ON ETT TO VENT: AC/PC FIO2 AT 80%, RATE 24, PEEP 14, SPO2 AT 100% AT THIS TIME. NO SIGNS OF ACUTE DISTRESS NOTED. GINA MIDLINE IN PLACE, CLEAN AND INTACT, RUNNING PROPOFOL AT 30 MCG/KG/MIN, BRIDGETTE-SYNEPHRINE AT 150 MCG/MIN, FENTANYL AT 2.5 MCG/KG/HR, VERSED AT 6 MG/HR, AND SODIUM BICARBONATE AT 70 ML/HR. OGT IS OUT, FEEDING IS NOT RUNNING AT THIS TIME, WILL INSERT OGT SHORTLY. EDEMA ON BUE/BLE EXTREMITIES, NONPITTING. OPEN ULCERATIONS ON L AND R EAR LOBES, RIGHT CHEEK NOTED, SCAB ON LOWER LIP NOTED, DTI TO CHIN, OPEN TO AIR. FITZGERALD IN PLACE, DRAINING WITH GRAVITY. PILLOWS USED TO UPLOADED PRESSURE AND BILATERAL HEEL PROTECTORS IN PLACE. EMERGENCY DEPARTMENT AIDE IN PLACE. SAFETY MEASURES IN PLACE. BED IN LOW POSITION, HOB ELEVATED 35 DEGREE, BED LOCKED.
--- NOTE | 2020-09-17 08:05 | NUR ---
RECEIVED ON A Post HoldingsSCAPE R860 VENTILATOR PLUGGED INTO RED OUTLET TOLERATING WELL WITHOUT ADVERSE REACTIONS NOTED TO AN ENDOTRACHEAL #7.5 SECURED AT 25cm TEETH/GUM LINE WITH AN ANCHOR FAST CUFF PRESSURE CHECKED NOTED AMBU BAG AT BEDSIDE LOC SEDATED SUPINE POSITION DEEP CHEST RISE RETRACTING ENDOTRACHEAL SUCTION FOR SMALL THICK YELLOW SECRETIONS AIRWAY PATENT HEMODIALYSIS IN PROGRESS
[2020-09-17] MEDS: INSULIN LISPRO SLIDING SCALE 100 UNITS/ML VIAL SUBQ PRN ×3 (08:07→17:46)
[2020-09-17] MEDS: BLOOD GLUCOSE MONITORING 1 DEV DEV FS SCH ×3 (08:09→16:30)
--- NOTE | 2020-09-17 08:10 | NUR ---
BLOOD GLUCOSE CHECKED, 177, 2 UNITS HUMALOG PROVIDED. HEPARIN FLUSH PROVIDED FOR LEADERSHIP PROGRAM INTERNSHIP. LEADERSHIP PROGRAM INTERNSHIP AT WINDOW SIDE. FERRYBOAT HELPER IN PLACE. SAFETY MEASURES IN PLACE.
--- NOTE | 2020-09-17 08:24 | NUR ---
RECEIVED A CALL FROM DR TIM, INFORMED BUN 74 FROM AM LAB, AND UPDATED DR TIM THAT PATIENT JUST FINISHED DIALYSIS, DR TIM WAS AWARE. RECEIVED TORB ORDERS FOR CHANGE IVF TO NS AT 75 ML/HR AND CHANGE TUBE FEEDING TO NEPRO, CONSULT FNS FOR RATE. OK TO INSERT NGT. REPEATED AND CONFIRMED ORDERS WITH MD. WILL INPUT ORDERS ACCORDINGLY.
[2020-09-17] MEDS: NACL 0.9% 1,000 ML IV SCH ×3 (08:49→21:50)
--- NOTE | 2020-09-17 08:53 | NUR ---
NEW BAG OF NS STARTED PER MD ORDER.
--- NOTE | 2020-09-17 09:45 | NUR ---
NG TUBE INSERTED INTO R NARE. PT EDUCATION PROVIDED, REINFORCEMENT NEEDED. PT TOLERATED WELL. ORDER PLACED, AWAITING XRAY CONFIRMATION OF TUBE PLACEMENT.
[2020-09-17] MEDS: hePARIN / DEXT 5% PREMIX 250 ML IV SCH (09:54)
--- NOTE | 2020-09-17 10:02 | NUR ---
PTT 27, 4,500 BOLUS GIVEN IVP AND INCREASED 300 UNIT/HR PER RX PROTOCOL. ORDER THE NEXT PTT DRAW AT 1600.
--- NOTE | 2020-09-17 10:10 | NUR ---
RESTING WELL GOOD CHEST RISE
--- NOTE | 2020-09-17 10:19 | NUR ---
DR ROQUE IS ROUNDING ON PATIENT.
[2020-09-17] MEDS ORDERED: PIPERACILLIN/TAZOBACTAM 2.25 GM in DEXTROSE 5% 50 ML IV SCH (10:20)
[2020-09-17] MEDS: PANTOPRAZOLE 40 MG INJ VIAL IVP SCH (10:41)
[2020-09-17] MEDS: DEXAMETHASONE 4 MG/ML VIAL IVP SCH (10:41)
--- NOTE | 2020-09-17 10:44 | NUR ---
ADMINISTERED SCHEDULED IVP MEDS AND ZOSYN TOUCH UP FOR 0500 AM DOSE, AWAITING TO CONFIRM NGT PLACEMENT FOR PO MEDS. WITH ASSIST, REPOSITIONED PATIENT, OFFLOADED PRESSURE WITH PILLOWS, PROVIDED HYGIENE CARE, CHG BATH, ORAL CARE, FITZGERALD CARE, AND SKIN CARE. BILLET ASSEMBLER IN PLACE. SAFETY MEASURES IN PLACE.
--- NOTE | 2020-09-17 11:39 | NUR ---
RESTING COMFORTABLY GOOD CHEST RISE AIRWAY PATENT
[2020-09-17] MEDS: ATORVASTATIN 20 MG TAB PO SCH (11:47)
[2020-09-17] MEDS: INVOKANA 300 MG PO SCH (11:48)
[2020-09-17] MEDS: QUEtiapine FUMARATE 25 MG TAB PO SCH (11:48)
[2020-09-17] MEDS: LACTULOSE 20 GM/30 ML UDC PO SCH ×2 (11:49→21:00)
[2020-09-17] MEDS: BENZTROPINE 1 MG TAB PO SCH ×2 (11:49→21:00)
--- NOTE | 2020-09-17 12:00 | NUR ---
OGT IN PLACE, ADMINISTERED AM MEDS, FLUSH BEFORE AND AFTER MEDS. CHECKED BLOOD GLUCOSE AND RECEIVED 181, 2 UNIT COVERAGE PROVIDED.
--- NOTE | 2020-09-17 13:16 | NUR ---
NO APPARENT PULMONARY DISTRESS NOTED GOOD CHEST RISE ENDOTRACHEAL SUCTION FOR SMALL THIN YELLOW SECRETIONS AIRWAY PATENT SATURATION 98% ON FIO2 OF 80% POST HHN THERAPY TITRATED FIO2 TO 70% JANETH/RN NOTIFIED
--- NOTE | 2020-09-17 13:55 | NUR ---
NEW PROPOFOL BOTTLE STARTED PER MD ORDER
--- NOTE | 2020-09-17 14:00 | NUR ---
PATIENT SUCCESSFULLY PLACED IN PRONE POSITION WITHOUT ADVERSE REACTIONS NOTED
--- NOTE | 2020-09-17 14:13 | NUR ---
WITH ASSIST, PATIENT TURNED TO PRONE POSITION AND LYING COMFORTABLY. OPTIFOAM USED FOR SKIN PROTECTION ON KNEE, USED PILLOWS TO OFFLOADED PRESSURE, GUEST ASSOCIATE IN PLACE. SAFETY MEASURES IN PLACE.
--- NOTE | 2020-09-17 17:15 | NUR ---
RECEIVED CRITICAL LAB VALUES: LACTIC ACID 2.9, BUN 23. VALUES TRENDING DOWN.
--- NOTE | 2020-09-17 17:48 | NUR ---
BLOOD GLUCOSE CHECKED, 188, 2 UNITS HUMALOG PROVIDED.
--- NOTE | 2020-09-17 17:53 | NUR ---
REMAINS IN PRONE POSITION STABLE GOOD CHEST RISE SATURATION 87% ON FIO2 OF 70% INCREASED FIO2 TO 75% SALUD RAMESH/RN NOTIFIED
--- NOTE | 2020-09-17 17:59 | NUR ---
RECEIVED CALL FROM [facility], PTT VALUE OF GREATER THAN 150. HEPARIN DRIP HELD PER RX PROTOCOL.
[2020-09-17] MEDS: [UNRECOGNIZED DRUG - OTHER] PO SCH (21:00)
[2020-09-17] MEDS: LATUDA PO SCH (21:00)
[2020-09-18] VITALS (73 sets, daily range): BP systolic 65–131; BP diastolic 40–88
[2020-09-18] MEDS: GAUZE TP SCH ×2 (01:00→13:51)
[2020-09-18] MEDS: NACL 0.9% 1,000 ML IV SCH ×2 (04:34→13:50)
[2020-09-18] MEDS: PIPERACILLIN/TAZOBACTAM 2.25 GM in DEXTROSE 5% 50 ML IV SCH ×3 (05:00→21:48)
--- NOTE | 2020-09-18 05:49 | NUR ---
ALL PAPER CHART IN PATIENTS FOLDER
[2020-09-18] MEDS: BLOOD GLUCOSE MONITORING 1 DEV DEV FS SCH ×5 (06:30→21:47)
--- NOTE | 2020-09-18 07:15 | NUR ---
NO PRIOR NOTES D/T DOWNTIME OF SYSTEM. SEE PAPER CHARTING. REPORT GIVEN TO DAYSHIFT NURSE, AT BEDSIDE, FOR CONTINUITY OF CARE @ THIS TIME.
--- NOTE | 2020-09-18 07:16 | NUR ---
RECEIVED WINDOW-SIDE REPORT FROM BODY CLEANER NURSEESTUARDO. PT LAYING IN BED, PRONE POSITION, TRENDELENBURG. SEDATED TO RASS -3, AROUSABLE TO SHAKING, UNABLE TO MAKE NEEDS KNOWN. ETT TO VENT: AC PC FIO2 100%, RR 24, PEEP 14. BREATHING SHALLOW AND LOBORED. COARSE LUNG SOUNDS AUSCULTATED BILATERALLY. ROLANDA PICC LINE INFUSING HEPARIN @ 1850 UNIT/HR, PROPOFOL @ 30 MCG/KG/MIN, PHENYLEPHRINE @ 150 MCG/MIN, NS @ 75 ML/HR, FENTANYL @ 2.5 MCG/KR/HR, VERSED @ 6 MG/HR, LEVOPHED 18 MCG/MIN. OG TUBE IN PLACE, ON HOLD WHILE PT PRONE. FITZGERALD CATHETER DRAINING TO GRAVITY, CLEAR YELLOW URINE. TING HEEL PROTECTORS IN PLACE, HEART SHAPED OPTIFOAM ON TING KNEES FOR SKIN PROTECTION IN PLACE. CHAIR LIFT OPERATOR IN PLACE. SAFETY MEASURES IN PLACE.
[2020-09-18] MEDS: ALBUTEROL SULFATE/IPRATROPIU 3 ML SOL IH SCH ×3 (07:47→18:57)
--- NOTE | 2020-09-18 07:51 | NUR ---
BLOOD GLUCOSE CHECKED, 136, NO INSULIN COVERAGE NEEDED.
[2020-09-18] MEDS: PHENYLEPHRINE 40 MG in NACL 0.9% 250 ML IV PRN ×3 (08:17→22:46)
--- NOTE | 2020-09-18 08:24 | NUR ---
LAB VALUE PTT GREATER THAN 160. HEPARIN ON HOLD FOR AN HR PER RX PROTOCOL.
[2020-09-18] MEDS: PANTOPRAZOLE 40 MG INJ VIAL IVP SCH (08:56)
[2020-09-18] MEDS: DEXAMETHASONE 4 MG/ML VIAL IVP SCH (08:56)
[2020-09-18] MEDS: INVOKANA 300 MG PO SCH (08:56)
[2020-09-18] MEDS: ATORVASTATIN 20 MG TAB PO SCH (08:56)
[2020-09-18] MEDS: LACTULOSE 20 GM/30 ML UDC PO SCH ×2 (08:56→21:49)
[2020-09-18] MEDS: QUEtiapine FUMARATE 25 MG TAB PO SCH (09:00)
--- NOTE | 2020-09-18 09:14 | NUR ---
AM MEDS ADMINISTERED PER MD ORDER. PT EDUCATION PROVIDED, REINFORCEMENT NEEDED. OG TUBE RESIDUAL 300 ML, BLACK FLUID. FLUSHED BEFORE AND AFTER MEDS. CATHETER CARE, HCG BATH PROVIDED, CHANGED ALL DIRTY LINEN. ORAL CARE PROVIDED. REPOSITIONED AND OFFLOADED PRESSURE WITH PILLOWS. PT IN PRONE, TRENDELENBURG POSITION. TING HEEL PROTECTORS IN PLACE. RECRUITER IN PLACE, SAFETY MEASURES IN PLACE.
--- NOTE | 2020-09-18 09:37 | NUR ---
DR LEIGH IS ROUNDING ON PATIENT. INFORMED THAT PTT IS < 150 THIS AM AND HOLDING PER RX PROTOCOL, RESUME IN AN HOUR, 300 ML BLACK RESIDUAL PULLED FROM OGT, DR MESSER WAS AWARE AND ORDER TO HOLD HEPARIN DRIP FOR TODAY AND RECHECK PTT IN 0600 AM TOMORROW. ALSO ORDER FOR ABG. WILL INPUT ORDER.
[2020-09-18] MEDS: PROPOFOL 1000 MG/100 ML PREMIX 100 ML IV PRN ×3 (09:42→22:35)
[2020-09-18] MEDS: fentaNYL citrate 2.5 MG in NACL 0.9% 200 ML IV PRN ×2 (09:44→22:29)
[2020-09-18 09:53] LABS: HEPATITIS A ANTIBODY IGM Negative (Negative); HEPATITIS B CORE AB TOTAL Negative (Negative)
[2020-09-18 10:15] LABS: ANION GAP 16.1 (8-16); CARBON DIOXIDE 25.5 mmol/L (21-32); POTASSIUM 5.6 mmol/L (3.5-5.1)
[2020-09-18 10:17] LABS: CREATININE 4.4 mg/dL (0.6-1.3)
--- NOTE | 2020-09-18 10:48 | NUR ---
ABG RESULTS REPORTED TO DR MESSER. INCREASED RR TO [address] MESSER.
[2020-09-18] MEDS: NOREPINEPHRINE 8 MG in DEXTROSE 5% 250 ML IV PRN ×3 (10:49→23:52)
[2020-09-18] MEDS: BENZTROPINE 1 MG TAB PO SCH ×2 (10:50→21:49)
--- NOTE | 2020-09-18 11:00 | NUR ---
PT PLACED IN SUPINE POSITION WITH NO ISSUES. ETT REMAINS SECURE AND PATENT. SATURATION IS 96%, WILL CONTINUE TO MONITOR.
--- NOTE | 2020-09-18 11:05 | NUR ---
WITH ASSIST FROM RT, POSITIONED PATIENT INTO SUPINE, POSITIONED COMFORTABLY, CHANGED ALL DIRTY LINENS, PROVIDED HYGIENE CARE, ORAL CARE, PILLOWS PLACED TO OFFLOADED PRESSURE, HEEL PROTECTORS IN PLACE. COSMETIC MANAGER IN PLACE. SAFETY MEASURES IN PLACE.
--- NOTE | 2020-09-18 11:45 | NUR ---
PATIENT' BROTHER TESSA IS SEEING PATIENT BY WINDOW-SIDE. PER TESSA, HE WANTS PATIENT TO REMAINS THE SAME CODE STATUS.
[2020-09-18] MEDS: INSULIN LISPRO SLIDING SCALE 100 UNITS/ML VIAL SUBQ PRN ×2 (11:58→17:33)
--- NOTE | 2020-09-18 11:59 | NUR ---
CHECKED BLOOD GLUCOSE AND RECEIVED 162, 2 UNITS HUMALOG COVERAGE. STARTED PATIENT ON OGT FEEDING NEPRO PER MD ORDER.
--- NOTE | 2020-09-18 13:52 | NUR ---
ADMINISTERED SCHEDULE ZOSYN PER MD ORDER. PROVIDED WOUND CARE, APPLIED SKIN PREP TO CHIN. PAINTED RIGHT AND LEFT EAR LOBES WITH BETADINE, OPEN TO AIR. PATIENT TOLERATED FAIR. FLACC 0. RESPIRATION EVEN AND UNLABORED ON ETT TO VENT SETTING AC/PC FIO2 AT 70% RATE 30, PEEP 14, SPO2 AT 100%. RT ANTOINE IS AT BEDSIDE PROVIDING BREATHING TREATMENT. LOADING UNIT OPERATOR POWDER CHARGING IN PLACE. SAFETY MEASURES IN PLACE.
[2020-09-18] MEDS ORDERED: ALBUMIN HUMAN 25% 100 ML IV SCH (16:00)
--- NOTE | 2020-09-18 16:07 | NUR ---
NEW PROPOFOL BOTTLE STARTED.
[2020-09-18] MEDS: MIDAZOLAM MDV 100 MG in NACL 0.9% 80 ML IV PRN (16:55)
--- NOTE | 2020-09-18 17:25 | NUR ---
BLOOD GLUCOSE 157, 2 UNIT COVERAGE WILL BE ADMINISTERED. PATIENT IS STILL GOING ON DIALYSIS AT THIS TIME.
--- NOTE | 2020-09-18 18:58 | NUR ---
RECEIVED REPORT FROM AM SHIFT. PATIENT WAS SEEN AND ASSESSED. FOUND PT IN SUPINE POSITION. PT IS INTUBATED WITH ETT SIZE 7.5 AND SECURED WITH ANCHOR-FAST @ 25 cm. PATIENT IS ON VENT SETTINGS: AC/PC RR 30, PIP 28, PEEP 14, FiO2 65% WITH SPO2 OF 100%. VENT PLUGGED IN RED OUTLET. ALARMS SET AND AUDIBLE TO ENVIRONMENT. AUSCULTATION REVEALS COARSE BILATERAL BREATH SOUNDS. SUCTIONED SMALL AMOUNT OF YELLOW THICK SECRETIONS FROM ETT. PT IS IN NO APPARENT RESPIRATORY DISTRESS AT THIS TIME. SCHEDULE HHN TX GIVEN ORDERED AND PT TOLERATED TX WELL WITH NO ADVERSE REACTION. WILL CONTINUE TO MONITOR PT.
--- NOTE | 2020-09-18 19:26 | NUR ---
ENDORSED TO LEARNING SUPPORT TEACHER NURSES MARVIN FOR CONTINUITY OF CARE.
--- NOTE | 2020-09-18 20:00 | NUR ---
RECEIVED PT FROM DAY SHIFT RN, PT ETT TO VENT A/C PC FIO2 65%, RATE 30, PEEP 14. PT RESPIRATION UNLABORED. CHEST EXPANSION EQUAL AND SYMMETRICAL. LUNG SOUNDS COARSE AND DIMINISHED ON THE BASES. ORAL MUCOSA PINK AND MOIST. SKIN WARM AND DRY. PT HAS ACCESS ON THE RIGHT UPPER ARM MIDLINE AND DIALYSIS CATHETER ON THE RIGHT FEMORAL. LINES ASYMPTOMATIC, PATENT AND INTACT. DRY WEIGHT 78.9 KG, RASS -3. PT ON PROPOFOL @ 30 MCG/KG/MIN( 14.19 ML/H), BRIDGETTE SYNEPHRINE 150 MCG/MIN (56.58 ML/H), FENTANYL 2.49 MCG/KG/HR (19.72 ML/HR). VERSED 6MG/HR, LEVOPHED 24 MCG/MIN (45 ML/HR). HEPARIN ON HOLD AT THIS TIME PER ORDER. NGT IN PLACE TO FEEDING. NEPRO @ 65 ML/HR WITH FWF 200ML/12HRS. 60 ML RESIDUALS. BED IN LOWEST POSITION, SIDE RAILS UP, SAFETY MEASURES IN PLACE. DROPLET PRECAUTION MAINTAINED. WILL CONTINUE TO MONITOR PT.
--- NOTE | 2020-09-18 21:10 | NUR ---
PATIENT WAS PLACED IN PRONE POSITION. PATIENT TOLERATED PROCEDURE WELL. PATIENT IS IN NO APPARENT RESPIRATORY DISTRESS AT THIS TIME. SPO2 98%. SUCTIONED SMALL AMOUNT OF YELLOW THICK SECRETIONS. AIRWAY IS PATENT. RNs AT BEDSIDE. WILL CONTINUE TO MONITOR PATIENT.
[2020-09-18] MEDS: [UNRECOGNIZED DRUG - OTHER] PO SCH (21:49)
[2020-09-18] MEDS: LATUDA PO SCH (21:49)
[2020-09-19] VITALS (86 sets, daily range): BP systolic 54–120; BP diastolic 16–94
[2020-09-19] MEDS: NACL 0.9% 1,000 ML IV SCH (00:30)
[2020-09-19] MEDS: ALBUTEROL SULFATE/IPRATROPIU 3 ML SOL IH SCH ×3 (01:00→13:32)
--- NOTE | 2020-09-19 01:30 | NUR ---
PAGED DR. ORTIZ FOR CHANGE IN EKG RHYTHM. AWAITING FOR RETURN CALL.
--- NOTE | 2020-09-19 01:33 | NUR ---
DR. ORTIZ ORDERED STAT EKG. WILL MONITOR PT.
[2020-09-19] MEDS: GAUZE TP SCH ×2 (01:52→13:18)
--- NOTE | 2020-09-19 02:00 | NUR ---
PATIENT WAS PLACED BACK IN SUPINE POSITION DUE TO PATIENT NOT TOLERATING PRONE POSITIONING. PATIENT IS IN NO APPARENT RESPIRATORY DISTRESS AT THIS TIME. SPO2 95%. SUCTIONED SMALL AMOUNT OF YELLOW THICK SECRETIONS. AIRWAY IS PATENT. RNs AT BEDSIDE. WILL CONTINUE TO MONITOR PATIENT. STAT EKG COMPLETED.
--- NOTE | 2020-09-19 02:00 | NUR ---
PT RESTARTED ON TUBE FEEDING @ 65 ML/HR NEPRO, FWF 200ML/12HRS. 110ML COFFEE GROUND RESIDUALS NOTED. WILL CONTINUE TO MONITOR.
[2020-09-19] MEDS: PHENYLEPHRINE 40 MG in NACL 0.9% 250 ML IV PRN ×4 (03:57→18:21)
--- NOTE | 2020-09-19 04:00 | NUR ---
PT WAS TURNED AND REPOSITIONED, PRESSURE AREAS OFF LOADED. PT TOLERATING FEEDING. WILL CONTINUE TO MONITOR.
[2020-09-19] MEDS: PIPERACILLIN/TAZOBACTAM 2.25 GM in DEXTROSE 5% 50 ML IV SCH ×2 (04:03→13:18)
[2020-09-19] MEDS: NOREPINEPHRINE 8 MG in DEXTROSE 5% 250 ML IV PRN ×4 (05:15→20:01)
--- NOTE | 2020-09-19 06:00 | NUR ---
MORNING CARE PROVIDED. PT TOLERATING FEEDING. TURNED AND REPOSITIONED . WILL CONTINUE TO MONITOR.
--- NOTE | 2020-09-19 07:20 | NUR ---
ENDORSED PT TO DAY SHIFT RN FOR CONTINUITY OF CARE.
--- NOTE | 2020-09-19 07:22 | NUR ---
RECEIVED WINDOW-SIDE REPORT FROM LENS GRINDER NURSES DACIA AND KRISTIN FOR CONTINUITY OF CARE. PATIENT IS LYING ON SUPINE POSITION, RASS -3, DRY WEIGHT 78.9 KG, FLACC 0. RESPIRATION EVEN AND UNLABORED ON ETT TO VENT: AC/PC FIO2 AT 60%, RATE 30, PEEP 14, SPO2 AT 97% AT THIS TIME. NO SIGNS OF ACUTE DISTRESS NOTED. GINA MIDLINE IN PLACE, CLEAN AND INTACT, RUNNING PROPOFOL AT 30 MCG/KG/MIN, BRIDGETTE-SYNEPHRINE AT 150 MCG/MIN, FENTANYL AT 2.5 MCG/KG/HR, VERSED AT 6 MG/HR, AND NS AT 5ML/HR. OGT IN PLACE, FEEDING RUNNING ON NEPRO. EDEMA ON BUE/BLE EXTREMITIES, NONPITTING. OPEN ULCERATIONS ON L AND R EAR LOBES, RIGHT CHEEK NOTED, SCAB ON LOWER LIP NOTED, DTI TO CHIN, OPEN TO AIR. FITZGERALD IN PLACE, DRAINING WITH GRAVITY, NO URINE IN BAG NOTED. PILLOWS USED TO UPLOADED PRESSURE AND BILATERAL HEEL PROTECTORS IN PLACE. HOT STAMP OPERATOR IN PLACE. SAFETY MEASURES IN PLACE. BED IN LOW POSITION, HOB ELEVATED 35 DEGREE, BED LOCKED.
[2020-09-19] MEDS: ATORVASTATIN 20 MG TAB PO SCH (08:03)
[2020-09-19] MEDS: LACTULOSE 20 GM/30 ML UDC PO SCH (08:03)
[2020-09-19] MEDS: QUEtiapine FUMARATE 25 MG TAB PO SCH (08:03)
[2020-09-19] MEDS: BENZTROPINE 1 MG TAB PO SCH (08:03)
[2020-09-19] MEDS: DEXAMETHASONE 4 MG/ML VIAL IVP SCH (08:03)
[2020-09-19] MEDS: PANTOPRAZOLE 40 MG INJ VIAL IVP SCH (08:03)
[2020-09-19] MEDS: INVOKANA 300 MG PO SCH (08:04)
[2020-09-19] MEDS: BLOOD GLUCOSE MONITORING 1 DEV DEV FS SCH ×3 (08:15→16:51)
--- NOTE | 2020-09-19 08:16 | NUR ---
BLOOD GLUCOSE 158, 2 UNIT HUMALOG GIVEN. CHECKED OGT RESIDUAL AND PULLED OUT 200 ML BLACK/BROWN RESIDUAL. WILL NOTIFY MD PRIOR TO RESUME HEPARIN DRIP. ADMINISTERED MEDS, FLUSH BEFORE AND AFTER. PROVIDED HYGIENE CARE, ORAL CARE, CHG BATH, FITZGERALD CARE. WITH ASSIST, REPOSITIONED PATIENT, AND OFFLOADED PRESSURE WITH PILLOWS, HEEL PROTECTORS ON BILATERALLY, CHANGED ALL DIRTY LINENS. PATIENT TOLERATED FAIR, RESPIRATION EVEN AND UNLABORED ON AC/PC FIO2 60%, SPO2 AT 97%, FLACC 0. MIXER FOAM RUBBER IN PLACE. SAFETY MEASURES IN PLACE. HOB ELEVATED 35 DEGREE, BED IN LOW POSITION, AND BED LOCKED.
[2020-09-19] MEDS ORDERED: MIDAZOLAM MDV 50 MG in NACL 0.9% 40 ML IV PRN (08:20)
[2020-09-19] MEDS ORDERED: MIDAZOLAM MDV 100 MG in NACL 0.9% 80 ML IV PRN (08:35)
[2020-09-19] MEDS: INSULIN LISPRO SLIDING SCALE 100 UNITS/ML VIAL SUBQ PRN ×3 (08:40→16:52)
[2020-09-19 09:31] LABS: BASOPHILS % (AUTO) 0.1 % (0.0-2.0); EOSINOPHILS % (AUTO) 0.4 % (0.0-4.0); HEMATOCRIT 22.4 % (36-52); HEMOGLOBIN 7.1 g/dL (12.0-18.0); LYMPHOCYTES # (AUTO) 0.3 K/uL (2.0-11.5); LYMPHOCYTES % (AUTO) 7.4 % (20.5-51.1); MEAN CORPUSCULAR HEMOGLOBIN 25 pg (27-31); MEAN CORPUSCULAR HGB CONC 32 g/dL (33-37); MEAN CORPUSCULAR VOLUME 78.1 fL (80-94); MONOCYTES # (AUTO) 0.3 K/uL (0.8-1.0); MONOCYTES % (AUTO) 8.5 % (1.7-9.3); NEUTROPHILS # (AUTO) 3.3 K/uL (1.8-7.7); NEUTROPHILS % (AUTO) 83.6 % (42.2-75.2); PLATELET COUNT (AUTO) 140 K/uL (140-450); RED BLOOD CELL COUNT(AUTO) 2.86 MIL/uL (4.20-6.10); RED CELL DISTRIBUTION WIDTH 16.3 % (11.6-13.7)
[2020-09-19 09:35] LABS: ALBUMIN 1.3 g/dL (3.4-5.0); ANION GAP 17.5 (8-16); CARBON DIOXIDE 23.6 mmol/L (21-32); POTASSIUM 4.1 mmol/L (3.5-5.1); TOTAL BILIRUBIN 0.6 mg/dL (0.0-1.0)
--- NOTE | 2020-09-19 09:35 | NUR ---
NOTIFIED BUSTER LUDLOW MACHINE OPERATOR THAT PATIENT HAS DIALYSIS ORDER FOR TODAY, BUSTER MONTOYA WAS AWARE.
[2020-09-19 09:54] LABS: CREATININE 4.2 mg/dL (0.6-1.3)
--- NOTE | 2020-09-19 09:58 | NUR ---
RECEIVED CRITICAL LAB FOR CR 4.2, BUN 57, CALCIUM 7.1, NOTIFIED DR TIM AND HE WAS AWARE. DIALYSIS ORDERED FOR TODAY.
[2020-09-19] MEDS: PROPOFOL 1000 MG/100 ML PREMIX 100 ML IV PRN ×2 (10:14→17:02)
[2020-09-19] MEDS: fentaNYL citrate 2.5 MG in NACL 0.9% 200 ML IV PRN (10:42)
--- NOTE | 2020-09-19 10:43 | NUR ---
STARTED A NEW BAG OF FENTANYL, CHANGED IV TUBINGS.
--- NOTE | 2020-09-19 11:25 | NUR ---
BLOOD GLUCOSE 167, 2 UNIT COVERAGE GIVEN. WITH ASSIST, REPOSITIONED PATIENT, OFFLOADED PRESSURE WITH PILLOWS, PROVIDED ORAL CARE, PATIENT TOLERATED FAIR. NO SIGNS OF ACUTE DISTRESS NOTED. APPLICATION DBA IN PLACE. SAFETY MEASURES IN PLACE.
--- NOTE | 2020-09-19 13:27 | NUR ---
ADMINISTERED SCHEDULED MEDS PER MD ORDER, PROVIDED WOUND CARE, PAINTED LEFT AND RIGHT EAR LOBES WITH BETADINE AND DIRECTOR OF STUDENT FINANCIAL SERVICES. REPOSITIONED PATIENT, OFFLOADED PRESSURE WITH PILLOWS, PATIENT TOLERATED FAIR. NO SIGNS OF ACUTE DISTRESS NOTED. TEAMCENTER SOLUTION ARCHITECT IN PLACE. SAFETY MEASURES IN PLACE.
--- NOTE | 2020-09-19 15:08 | NUR ---
DR MESSER IS ROUNDING ON PATIENT, INFORMED OF INCIDENT OF LAST NIGHT, PATIENT WENT ST TO 120 BPM PER REPORT, DR MESSER WAS AWARE. RECEIVED ORDERS TO HEPARIN DRIP UNTIL TOMORROW, REPEAT PPT LAB DRAW, NO BOLUS OF HEPARIN. DISCONTINUED PRONE POSITION SINCE PATIENT IS UNABLE TO TOLERATED. WILL INPUT ORDERS AND ENDORSE ACCORDINGLY.
--- NOTE | 2020-09-19 15:29 | NUR ---
STARTED A NEW BOTTLE OF TUBE FEEDING, CHANGE TUBING, NEPRO AT 65 ML/HR AND WATER FLUSH 120 ML/Q4H PER MD ORDER.
--- NOTE | 2020-09-19 16:00 | NUR ---
PLATELET TRANSFUSION STARTED AT THIS TIME, WILL MONITOR VITAL SIGNS. Addendum: 09/19/20 at 1601 by Leonela Hayes RN CHART UNDER WRONG PATIENT.
--- NOTE | 2020-09-19 16:53 | NUR ---
BLOOD GLUCOSE 168, 2 UNIT GIVE. WITH ASSIST, PROVIDED HYGIENE CARE, CHANGED DIRTY LINENS, REPOSITIONED PATIENT, AND OFFLOADED PRESSURE WITH PILLOWS. PATIENT TOLERATED FAIR. METAL BENDING MACHINE OPERATOR IS BY BEDSIDE. PATIENT IS ABOUT TO GET DIALYSIS. FARM HELPER IN PLACE. SAFETY MEASURES IN PLACE.
--- NOTE | 2020-09-19 16:59 | NUR ---
RECEIVED A CALL FROM PATIENT'S BROTHER TESSA, UPDATED TESSA WITH PATIENT'S CURRENT CONDITION, TESSA WAS AWARE.
--- NOTE | 2020-09-19 17:08 | NUR ---
PT CODING, CPR IN PROGRESS, BROTHER TESSA CALLED, NO ANSWER, LEFT MESSAGE TO CALL BACK ICU. DR QUIROZ CALLED TO NOTIFY OF PT CONDITION, NO NEW ORDERS AT THIS TIME.
--- NOTE | 2020-09-19 17:23 | NUR ---
09/19/20 RD FOLLOW UP COMPLETED PLEASE REFER TO NUTRITION ASSESSMENT UNDER CARE ACTIVITY FOR ESTIMATED NUTRITIONAL NEEDS. 1. RECOMMEND NEPRO 1.8 @ 50 ML/HR X 24 HR THIS PROVIDES 1200 ML OF VOLUME, 2016 KCAL, 97 GM OF PROTEIN. MEETS 100% OF KCAL AND PROTEIN NEEDS 2. RECOMMEND VITAMIN C 1000 MG DAILY AND ZINC 220 MG DAILY X 14 DAYS 3. RECOMMEND FREE WATER FLUSH OF [address] TO FOLLOW-UP 2-3 DAYS, HIGH RISK ALEIDA BENTLEY RD
--- NOTE | 2020-09-19 17:25 | NUR ---
CALLED PATIENT'S BROTHER TESSA, NO ANSWER, AND LEFT A MESSAGE TO RETURN CALL.
--- NOTE | 2020-09-19 17:30 | NUR ---
CODE BLUE ACTIVATED. SEE CODE BLUE SHEET.
--- NOTE | 2020-09-19 18:02 | NUR ---
PEEP INCREASED TO [id number] DUE TO SPO2 DECREASING TO MID 70'S. SPO2 NOW 88%. NURSE AWARE OF CHANGE.
--- NOTE | 2020-09-19 18:30 | NUR ---
CODE BLUE ACTIVATED. SEE CODE BLUE SHEET.
--- NOTE | 2020-09-19 18:37 | NUR ---
PHONE CALL TO TESSA STERLING ([phone]); PTS BROTHER.NO ANSWER, LEFT MESSAGE TO CALL BACK WATER PUMP OPERATOR.AWAITING CALL.
--- NOTE | 2020-09-19 19:21 | NUR ---
PHONE CALL FROM TESSA STERLING; MADE AWARE THAT WE'VE BEEN TRYING TO GET HOLD OF HIM EARLIER; PT CODED TWICE. ALSO INFORMED THAT PT IS CODING AT THIS TIME; TESSA SAID TO CONTINUE DOING EVERYTHING.PT FULL CODE.
--- NOTE | 2020-09-19 19:21 | NUR ---
CODE BLUE ACTIVATED. SEE CODE BLUE SHEET.
--- NOTE | 2020-09-19 19:30 | NUR ---
ENDORSED PATIENT TO MORTGAGE LOAN COMPUTATION CLERK NURSE, PATIENT IS NOT IN STABLE CONDITION. CLOSELY MONITOR. GUIDANCE DIRECTOR IN PLACE.
--- NOTE | 2020-09-19 19:30 | NUR ---
RECEIVED PT FROM DAY SHIFT RN, PT S/P CODE. ELEVATOR ERECTOR HELPER AT BEDSIDE WITH PADS ATTACHED TO THE PT. PT ETT TO VENT. PT RESPIRATION LABORED. PT HAS ACCESS ON THE RIGHT UPPER ARM MIDLINE AND DIALYSIS CATHETER ON THE RIGHT FEMORAL. LINES ASYMPTOMATIC, PATENT AND INTACT. PT ON BRIDGETTE SYNEPHRINE 150 MCG/MIN (56.25 ML/H), LEVOPHED 30 MCG/MIN (56.25 ML/HR). NGT IN PLACE. HELD FEEDING. BED IN LOWEST POSITION, SIDE RAILS UP, SAFETY MEASURES IN PLACE. DROPLET PRECAUTION MAINTAINED. VITALS ARE FOLLOWS: BP: 85/63, HR: 184, RR;30, O2SAT: 74. WILL CONTINUE TO MONITOR PT.
--- NOTE | 2020-09-19 19:51 | NUR ---
CODE BLUE ACTIVATED. SEE CODE BLUE SHEET.
[2020-09-19] MEDS ORDERED: EPINEPHrine 1:1000 (1 mg/mL) 1 MG in DEXTROSE 5% 250 ML IV PRN (20:05)
--- NOTE | 2020-09-19 20:07 | NUR ---
SPOKE TO DR. QUIROZ. UPDATED ABOUT PT'S CONDITION. MD ORDERED EPINEPHRINE DRIP.
[2020-09-19] MEDS ORDERED: EPINEPHrine 1:1000 - 1 MG/ML AMP ONE (20:14)
--- NOTE | 2020-09-19 20:17 | NUR ---
CODE BLUE ACTIVATED. SEE CODE BLUE SHEET.
--- NOTE | 2020-09-19 20:25 | NUR ---
CALLED TESSA STERLING (BROTHER) AND UPDATED ABOUT PT'S . PER TESSA, HE WILL CALL BACK TO PROVIDE THE MORTUARY OF CHOICE.
--- NOTE | 2020-09-19 20:35 | NUR ---
TESSA CALLED BACK AND PROVIDED MORTUARY OF CHOICE. [facility] - [address] [place] [address]. #[phone].
--- NOTE | 2020-09-19 20:45 | NUR ---
CALL PLACED TO [facility]. SPOKE TO ALAN AND OKAYED TO RELEASE THE BODY. #[phone].
--- NOTE | 2020-09-19 20:55 | NUR ---
INTERVENTIONAL TECH CORNELIUS MATHIS RELEASED THE BODY AT THIS TIME.
--- NOTE | 2020-09-19 22:30 | NUR ---
CALL PLACED TO [facility] ( [facility]). SHE STATED THEY WILL SUPPORT TEACHER THE BODY IN ONE AND A HALF HOUR. ALSO UPDATED THE PT'S BROTHER TESSA ABOUT THE PLAN.
== END 2020-09-19 20:20 | disposition expired | DRG 207 ==
LOC: MED 15:20 → MTU 17:41 → MIC 08-31 15:35
PROVIDERS: ADMIT Hospitalist; ATTEND Hospitalist
PROC: 5A0935A Assistance with Respiratory Ventilation, Less than 24 Consecutive Hours, High Flow/Velocity Cannula (ICD-10-PCS; 2020-08-31)
PROC: XW13325 Transfusion of Convalescent Plasma (Nonautologous) into Peripheral Vein, Percutaneous Approach, New Technology Group 5 (ICD-10-PCS; 2020-09-01)
PROC: 5A0935A Assistance with Respiratory Ventilation, Less than 24 Consecutive Hours, High Flow/Velocity Cannula (ICD-10-PCS; 2020-09-01)
PROC: 02HV33Z Insertion of Infusion Device into Superior Vena Cava, Percutaneous Approach (ICD-10-PCS; 2020-09-02)
PROC: 5A0935A Assistance with Respiratory Ventilation, Less than 24 Consecutive Hours, High Flow/Velocity Cannula (ICD-10-PCS; 2020-09-02)
PROC: XW033E5 Introduction of Remdesivir Anti-infective into Peripheral Vein, Percutaneous Approach, New Technology Group 5 (ICD-10-PCS; 2020-09-03)
PROC: 5A0935A Assistance with Respiratory Ventilation, Less than 24 Consecutive Hours, High Flow/Velocity Cannula (ICD-10-PCS; 2020-09-03)
PROC: 5A0935A Assistance with Respiratory Ventilation, Less than 24 Consecutive Hours, High Flow/Velocity Cannula (ICD-10-PCS; 2020-09-04)
PROC: 5A0935A Assistance with Respiratory Ventilation, Less than 24 Consecutive Hours, High Flow/Velocity Cannula (ICD-10-PCS; 2020-09-05)
PROC: 02HV33Z Insertion of Infusion Device into Superior Vena Cava, Percutaneous Approach (ICD-10-PCS; 2020-09-06)
PROC: B548ZZA Ultrasonography of Superior Vena Cava, Guidance (ICD-10-PCS; 2020-09-06)
PROC: 5A0935A Assistance with Respiratory Ventilation, Less than 24 Consecutive Hours, High Flow/Velocity Cannula (ICD-10-PCS; 2020-09-06)
PROC: 5A1955Z Respiratory Ventilation, Greater than 96 Consecutive Hours (ICD-10-PCS; principal; 2020-09-07)
PROC: 0BH17EZ Insertion of Endotracheal Airway into Trachea, Via Natural or Artificial Opening (ICD-10-PCS; 2020-09-07)
PROC: 5A1D70Z Performance of Urinary Filtration, Intermittent, Less than 6 Hours Per Day (ICD-10-PCS; 2020-09-16)
PROC: 5A1D70Z Performance of Urinary Filtration, Intermittent, Less than 6 Hours Per Day (ICD-10-PCS; 2020-09-18)
PROC: 5A12012 Performance of Cardiac Output, Single, Manual (ICD-10-PCS; 2020-09-19)
PROC: 5A1D70Z Performance of Urinary Filtration, Intermittent, Less than 6 Hours Per Day (ICD-10-PCS; 2020-09-19)
DX: U07.1 COVID-19 (principal); J12.89 Other viral pneumonia; J80 Acute respiratory distress syndrome; N17.9 Acute kidney failure, unspecified; R65.10 Systemic inflammatory response syndrome (SIRS) of non-infectious origin without acute organ dysfunction; F20.9 Schizophrenia, unspecified; I48.91 Unspecified atrial fibrillation; E11.9 Type 2 diabetes mellitus without complications; R13.10 Dysphagia, unspecified; I10 Essential (primary) hypertension; I46.9 Cardiac arrest, cause unspecified; Z99.2 Dependence on renal dialysis
CPT/HCPCS: 36415; 36600; 71045; 80048; 80053; 80076; 81001; 82330; 82728; 82803; 83036; 83605; 83625; 83690; 83735; 83874; 83880; 84100; 84132; 84300; 84484; 85025; 85379; 85610; 85730; 86140; 86704; 86708; 86709; 86803; 86886; 86900; 86901; 87040; 87070; 87081; 87086; 87205; 87804; 89220; 92950; 93005; 94003; 94640; 96365; 99285; C9113; J0153; J0171; J0456; J0461; J0696; J1100; J1630; J1644; J1650; J1815; J1940; J1956; J2060; J2250; J2270; J2370; J2405; J2543; J2704; J3010; J3490; J7030; J7060; P9017; P9046